=== PATIENT | female | born 1995 | race Hispanic/Latino ===

== ENCOUNTER 2020-03-24 16:46 | Emergency (ER) | payer OTHER, SELFPAY ==
--- NOTE | ~2020-03-24 | CT_ITS ---
EXAMINATION:CT chest w con DATE: 03/24/2020 20:04 INDICATION: Left breast mass, pain, and redness. TECHNIQUE: Computed tomography (CT) of the chest was performed with 75 mL Omnipaque 350 intravenous c ontrast. Automated exposure control and iterative reconstruction technique were employed. The dose-le ngth product (DLP) was 210.49 mGy-cm. COMPARISON: None. FINDINGS: There is no pneumonia or pleural effusion. The heart size is normal. No pericardial effusio n. There is left breast skin thickening. There is increased soft tissue attenuation in left breast wh en compared to the right. The bones are unremarkable. IMPRESSION: 1. Left breast skin thickening and asymmetric soft tissue attenuation, likely mastitis. No well-defin ed abscess identified. Reviewed, dictated and finalized at location A. AGE BOSS IMPRESSION: 1. Left breast skin thickening and asymmetric soft tissue attenuation, likely m astitis. No well-defined abscess identified.
[2020-03-24 17:12] VITALS: BP 134/85; PULSE 90; RESP 18; TEMP 36.9; O2SAT 100
--- NOTE | 2020-03-24 18:13 | ED.GENADULT ---
HPI - General Adult General Chief complaint: Unspecified Stated complaint: lump in left breast Time Seen by Provider: 03/24/20 18:13 Source: patient and family Mode of arrival: ambulatory Limitations: no limitations History of Present Illness HPI narrative: Patient is a 24-year-old female who presents for evaluation of left breast pain. Patient reports a 2-day history of redness, pain in the left breast. She feels a large lump beneath the breast. Pain is dull, aching in nature. No discharge from the nipple. No bruising. No swollen lymph nodes that she has noticed in the armpit. She denies fever or chills. Patient has no history of skin infection. She is not breast-feeding. Patient denies any history of cancer. No weight loss or history of cancer. Related Data Allergies Allergy/AdvReac Type Severity Reaction Status Date / Time No Known Allergies Allergy Verified 03/24/20 18:51 Review of Systems Review of Systems: Narrative: CONSTITUTIONAL: Denies fever, chills, or sweats. CARDIOVASCULAR: Denies chest pain, palpitations, or edema. RESPIRATORY: Denies cough or dyspnea. GASTROINTESTINAL: Denies abdominal pain, nausea, vomiting, or diarrhea. GENITOURINARY: Denies dysuria or hematuria. SKIN: Denies rash or itching. MUSCULOSKELETAL: Denies back pain, joint pain, or myalgia. NEUROLOGIC: Denies headache, numbness, or weakness. [facility] Past Medical History Medical History (Updated 03/24/20 @ 20:36 by Katherine Stevens MD) No pertinent past medical history Surgical History Surgical History (Updated 03/24/20 @ 18:49 by Katherine Stevens MD) No pertinent past surgical history Social History Social History (Updated 03/24/20 @ 18:49 by Katherine Stevens MD) Smoking status: Never smoker Alcohol intake: never Substance use: never Living arrangements: with family Gender identity (if verbalized by the patient): Female Exam Narrative: Exam Narrative: GENERAL: Awake, alert, conversant HEAD: Normocephalic, atraumatic. EYES: PERRLA and EOMI. ENT: Nares clear, no rhinorrhea or epistaxis. Mucous membranes moist. NECK: Supple. CHEST: No respiratory distress, breathing even and non labored, right breast is unremarkable, left breast notable for inferior erythema, edema, with induration inferior to the areola, no discharge from the nipple, no discoloration or asymmetry, + tender to palpation, + warmth present HEART: Regular rate, sinus rhythm ABDOMEN:Non distended, non tender EXTREMITIES: Normal range of motion. No edema. SKIN: Warm, dry, no rash. NEURO:No focal deficits. Alert and oriented x3 Course Vital Signs Vital signs: Vital Signs Temperature 36.9 C 03/24/20 17:12 Pulse Rate 90 03/24/20 17:12 Respiratory Rate 18 03/24/20 17:12 Blood Pressure 134/85 03/24/20 17:12 Pulse Oximetry 100 03/24/20 17:12 Temperature 36.9 C 03/24/20 17:12 Pulse Rate 90 03/24/20 17:12 Respiratory Rate 18 03/24/20 17:12 Blood Pressure 134/85 03/24/20 17:12 Pulse Oximetry 100 03/24/20 17:12 Medical Decision Making MDM Narrative Medical decision making narrative: Patient presented for evaluation of left breast tenderness, redness. At the time of assessment, ABCs are intact and vital signs are stable. Physical exam is notable for induration, mild erythema and warmth inferior to the areola, no axillary lymphadenopathy, no discharge from the nipple. No overlying skin changes otherwise. Given appearance, was concerned for possible mastitis versus abscess versus mass. Pt with mild leukocytosis. CT scan with evidence of mastitis, no abscess or mass otherwise. Patient is tolerating oral intake, will be given prescription for dicloxacillin, has PCP follow-up for this week. She was advised to return should she have no improvement after starting the antibiotic within 72 hours, fever, or inability to tolerate medication. Differential Diagnosis Differential Diagnosis: Mastitis, abscess, mass Vital Sig
[2020-03-24] MEDS: ACETAMINOPHEN 500 MG TABLET 1000 MG PO (19:01)
[2020-03-24 19:02] LABS: Basophils Percent Auto 0.3 % (0.2-1.2); Eosinophils Absolute Auto 0.1 K/mm3 (0-0.3); Eosinophils Percent Auto 0.9 % (0-4.4); Hematocrit 38.5 % (37.0-47.0); Hemoglobin 12.6 g/dL (12.0-15.0); Immature Granulocyte Absolute 0.04 K/mm3 (0.00-0.031); Immature Granulocyte Percent A 0.4 % (0-0.5); Lymphocytes Absolute Auto 2.66 K/mm3 (0.9-3.2); Lymphocytes Percent Auto 23.7 % (18.3-44.2); Mean Corpuscular HGB Conc 32.7 g/dl (32-36); Mean Corpuscular Hemoglobin 27.9 pg (26-34); Mean Corpuscular Volume 85.4 fl (80-100); Mean Platelet Volume 9.8 fl (7.4-10.4); Monocytes Absolute Auto 0.8 K/mm3 (0.1-0.6); Monocytes Percent Auto 7.5 % (2.6-8.5); Neutrophils Absolute Auto 7.6 K/mm3 (1.3-6.7); Neutrophils Percent Auto 67.2 % (45.5-73.1); Platelet Count Result 300 k/mm3 (150-375); Red Blood Count 4.51 M/mm3 (4.2-5.4); Red Cell Distribution Width 13.8 % (11.5-14.5); White Blood Count 11.2 K/mm3 (4.5-10.0)
[2020-03-24] MEDS: LACTATED RINGERS 1,000 ML 999 ML IV CONT (19:02)
[2020-03-24] MEDS: ONDANSETRON INJ 4 MG/2 ML VIAL IV PUSH (19:02)
[2020-03-24 19:14] LABS: Potassium 3.5 mmol/L (3.4-5.0)
[2020-03-24 19:16] LABS: Anion Gap 7 mmol/L (8-16); Blood Urea Nitrogen 12 mg/dL (7-17); Calcium 9.4 mg/dL (8.4-10.2); Carbon Dioxide 30 mmol/L (22-30); Chloride 101 mmol/L (98-107); Estimated CRCL calculation 112 ml/min; Estimated Glomerular Filt Rate > 60; Glucose 120 mg/dL (65-105); Sodium 138 mmol/L (137-145)
== END 2020-03-24 20:59 | disposition home or self-care (01) ==
PROVIDERS: Emergency Provider Emergency Medicine
DX: N61.0 Mastitis without abscess (principal)
CPT/HCPCS: 36415; 71260; 80048; 81025; 85025; 96361; 96374; 99284; A9270; J2405; J7120; Q9967

== ENCOUNTER 2022-01-02 10:05 | Emergency (ER) | payer OTHER, SELFPAY ==
--- NOTE | ~2022-01-02 | US_ITS ---
EXAMINATION: US OB limited DATE: 01/02/2022 11:54 INDICATION: Absent heart tones during second trimester TECHNIQUE: Real-time ultrasound of the pelvis was performed. The interpreting radiologist was not pre sent for the study. COMPARISON: None. FINDINGS: There is a single living fetus in breech presentation. The placenta is anterior. card iac activity and movement are noted. heart rate is 148 beats per minute (bpm). The amniot ic fluid index is subjectively normal. IMPRESSION: 1. Single living fetus in breech presentation. Reviewed, dictated and finalized at location B.
--- NOTE | 2022-01-02 10:14 | ED.RECABL ---
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 She completed treatment, but then had unprotected intercourse with her partner who was positive and was not treated. Patient is asymptomatic, denies any vaginal discharge, fevers, chills, abdominal pain, vaginal bleeding, sudden gush of fluids. She is still feeling baby move. <Cassandra Goodrich PA-C - Last Filed: 01/02/22 18:39> Related Data Allergies/Adverse Reactions: Allergies Allergy/AdvReac Type Severity Reaction Status Date / Time No Known Allergies Allergy Verified 03/24/20 18:51 <Cassandra Goodrich PA-C - Last Filed: 01/02/22 18:39> Review of Systems Review of Systems: Gen.: Denies fevers or chills Eyes: Denies eye pain or visual change ENT: Denies congestion Respiratory: Denies shortness of breath or cough CV: Denies chest pain or palpitations GI: Denies abdominal pain nausea, emesis or diarrhea denies burning, urgency, frequency or hematuria Musculoskeletal: Denies back pain or muscle pain Neuro: Denies numbness, tingling, weakness or focal weakness Skin: Denies rash Except as documented, all other systems reviewed and negative <Cassandra Goodrich PA-C - Last Filed: 01/02/22 18:39> [facility] Past Medical History Medical History: Medical History No pertinent past medical history <Cassandra Goodrich PA-C - Last Filed: 01/02/22 18:39> Surgical History Surgical History: Surgical History No pertinent past surgical history <Cassandra Goodrich PA-C - Last Filed: 01/02/22 18:39> Social History Social History: Social History (Updated 03/24/20 @ 18:49 by Katherine Stevens MD) Smoking status: Never smoker Alcohol intake: never Substance use: never Gender identity (if verbalized by the patient): Female <Cassandra Goodrich PA-C - Last Filed: 01/02/22 18:39> Exam Narrative: APPEARANCE: Well appearing, no pain in distress, well-nourished. Head: Normocephalic and atraumatic. EYES: PERRLA/EOMI, conjunctivae clear NOSE: No nasal drainage EARS: External ear normal in appearance THROAT: Oropharynx is clear. Mucous membranes are moist. NECK: Supple. No adenopathy, no masses. RESPIRATORY: Airway patent, respirations nonlabored. Clear to auscultation bilaterally, no rales, rhonchi, wheezing. CARDIOVASCULAR: Regular rate and rhythm without murmurs, rubs, or gallops. ABDOMINAL: Gravid uterus. Normoactive bowel sounds. Soft, nontender, nondistended. No rebound tenderness or guarding. : scant amount of white discharge noted in vaginal vault, no CMT MUSCULOSKELETAL: Extremities are warm and well-perfused. Moves all extremities well. No edema. NEURO: Normal speech. No focal neurologic deficits. SKIN: Skin is warm and dry. No rashes. PSYCHIATRIC: Normal affect/mood. <Cassandra Goodrich PA-C - Last Filed: 01/02/22 18:39> Course WEB EDITOR/PA Physician Supervision For this patient encounter, I reviewed the WEB EDITOR or PA documentation, treatment plan, and medical decision making <Gene Harrison MD - Last Filed: 01/03/22 06:57> Vital Signs Vital signs: Vital Signs Temperature 97.9 F 01/02/22 10:30 Pulse Rate 85 01/02/22 10:30 Respiratory Rate 16 01/02/22 10:30 Blood Pressure 114/71 01/02/22 10:30 Pulse Oximetry 100 01/02/22 10:30 Temperature 97.9 F 09/0
[2022-01-02 10:30] VITALS: BP 114/71; PULSE 85; RESP 16; TEMP 36.6; O2SAT 100
[2022-01-02] MEDS: cefTRIAXone 1 GM VIAL 0.5 GM IM (11:52)
[2022-01-02] MEDS: WATER, STERILE FOR INJECTION 10 ML VIAL XX (11:53)
[2022-01-02] MEDS: AZITHROMYCIN 250 MG TABLET 1000 MG PO (11:58)
[2022-01-02 12:16] VITALS: BP 129/76; PULSE 84; RESP 16; O2SAT 99
== END 2022-01-02 12:27 | disposition home or self-care (01) ==
PROVIDERS: Physician Assistant; Emergency Provider Emergency Medicine
DX: O99.891 Other specified diseases and conditions complicating pregnancy (principal); Z20.2 Contact with and (suspected) exposure to infections with a predominantly sexual mode of transmission; Z3A.00 Weeks of gestation of pregnancy not specified
CPT/HCPCS: 76815; 87070; 87491; 87591; 87808; 96372; 99284; A9270; J0696

== ENCOUNTER 2023-02-11 19:29 | Emergency (ER) | payer OTHER, SELFPAY ==
--- NOTE | ~2023-02-11 | XR_ITS ---
EXAMINATION: XR hand LT min 3V DATE: 02/11/2023 20:05 INDICATION: Left hand injury and pain and swelling. TECHNIQUE: 3 views of left hand were obtained. COMPARISON: None. FINDINGS: Bone alignment is normal. There is a nondisplaced spiral fracture of diaphysis of fifth met acarpal. Joint spaces are normal. IMPRESSION: 1. Nondisplaced spiral fracture of diaphysis of fifth metacarpal. Reviewed, dictated and finalized at location E.
[2023-02-11 19:50] VITALS: BP 131/80; PULSE 71; RESP 18; TEMP 36.6; O2SAT 100
--- NOTE | 2023-02-11 20:23 | ED.GENADULT ---
[facility] - General Adult General Chief complaint: Extremity Injury, Upper Stated complaint: left hand injury Time Seen by Provider: 02/11/23 19:54 Source: patient Mode of arrival: ambulatory Limitations: no limitations History of Present Illness HPI narrative: This is a 27-year-old female who presents to the ED with chief complaint of left hand injury that occurred just prior to. Patient was walking to the room when she accidentally tripped and fell landing directly onto her left hand. She reports that she fell directly onto a toy on the ground. Denies any further site of pain or injury. Denies numbness or weakness. Related Data Allergies Allergy/AdvReac Type Severity Reaction Status Date / Time No Known Allergies Allergy Verified 02/11/23 19:54 Review of Systems Review of Systems: All systems as dictated in [facility] Past Medical History Medical History No pertinent past medical history Surgical History Surgical History No pertinent past surgical history Social History Social History (Updated 03/24/20 @ 18:49 by Katherine Stevens MD) Smoking status: Never smoker Alcohol intake: never Substance use: never Living arrangements: with family Gender identity (if verbalized by the patient): Female Exam Narrative: GENERAL: Well-appearing, well-nourished, and in no acute distress. HEAD: Normocephalic, atraumatic. EYES: PERRLA and EOMI. ENT: Nares clear, no rhinorrhea or epistaxis. Mucous membranes moist. Oropharynx without tonsillar hypertrophy exudate or other lesions. NECK: Supple. No adenopathy or masses. CHEST: No respiratory distress. Clear to auscultation. No wheezes rales or rhonchi HEART: Regular rate and rhythm. No murmur heard. Normal peripheral pulses. ABDOMEN: Soft, nontender, nondistended, normal active bowel sounds. MSK: Left hand with tenderness to the fifth metacarpal. No crepitus. No deformity. No bruising. Neurovascularly intact distally. No anatomical snuffbox tenderness in the left wrist. SKIN: Warm, dry, no rash. NEURO: Alert and oriented x3. No focal deficits. PSYCH: Normal mood and affect. Course Vital Signs Vital signs: Vital Signs Temperature 97.9 F 02/11/23 19:50 Pulse Rate 71 02/11/23 19:50 Respiratory Rate 18 02/11/23 19:50 Blood Pressure 131/80 02/11/23 19:50 Pulse Oximetry 100 02/11/23 19:50 Oxygen Delivery Room Air 02/11/23 19:50 Temperature 97.9 F 02/11/23 19:50 Pulse Rate 74 02/11/23 21:18 Respiratory Rate 14 02/11/23 21:18 Blood Pressure 123/89 02/11/23 21:18 Pulse Oximetry 99 02/11/23 21:18 Oxygen Delivery Room Air 02/11/23 19:50 Procedures Orthopedic Splinting/Casting Injury #1: Splinting/Casting Date: 02/11/23 Splinting/Casting Time: 21:02 Side: left Upper Extremity Injury Location: hand Upper Extremity Immobilizer: ulnar gutter Splint: prefabricated OCL: ulnar gutter Pre-Procedure Neuro Vascular Exam: normal Post-Procedure Neuro Vascular Exam: normal Medical Decision Making MDM Narrative Medical decision making narrative: This is a 27-year-old female who presents to the ED with chief complaint of a left hand injury just prior to arrival. Vitals are normal. Exam shows tenderness on the ulnar side of the left hand. X-ray shows 1. Nondisplaced spiral fracture of diaphysis of fifth metacarpal.. She will be placed in ulnar gutter splint and given Ortho referral. Pt will be discharged in stable condition. Return precautions given and supportive measures discussed. Pt is understanding and agreeable with plan for discharge and follow-up with PCP/Ortho Vital Signs Vital Signs: Vital Signs Temperature 97.9 F 02/11/23 19:50 Pulse Rate 71 02/11/23 19:50 Respiratory Rate 18 02/11/23 19:50 Blood Pressure 13
[2023-02-11 21:18] VITALS: BP 123/89; PULSE 74; RESP 14; O2SAT 99
== END 2023-02-11 21:28 | disposition home or self-care (01) ==
PROVIDERS: Emergency Provider Physician Assistant
DX: S62.357A Nondisplaced fracture of shaft of fifth metacarpal bone, left hand, initial encounter for closed fracture (principal); W01.0XXA Fall on same level from slipping, tripping and stumbling without subsequent striking against object, initial encounter
CPT/HCPCS: 29125; 73130; 99284

== ENCOUNTER 2023-06-07 19:55 | Emergency (ER) | payer OTHER, SELFPAY ==
[2023-06-07 19:55] VITALS: BP 114/71; PULSE 82; RESP 17; TEMP 36.7; O2SAT 100
--- NOTE | 2023-06-07 21:30 | ED.HA ---
HPI - Headache General Chief Complaint: Headache Stated Complaint: PEREZ x2 weeks/6mo Time Seen by Provider: 06/07/23 21:30 Focused HPI: 28-year-old female who is , currently 6 months reports for evaluation for right-sided headache x2 weeks. Patient reports associated intermittent blurred vision in the right eye, photophobia and phonophobia. She denies history of headaches. States this has been uncomplicated. Denies history of eclampsia or preeclampsia, loss of consciousness, head trauma, chest pain or shortness of breath, abdominal pain, vaginal bleeding or leakage of fluid, seizures. reports taking Tylenol without relief. Denies history of headaches. Her OBGYN is Dr. Kelly. GENERAL: Well-appearing, well-nourished, and in no acute distress. HEAD: Normocephalic, atraumatic. CHEST: Clear to auscultation. ?No respiratory distress. HEART: Regular rate and rhythm.? NEURO: ?Alert and oriented x3. cranial nerves 2-12 intact. Strength 5/5 in BUE and BLE. Sensation intact throughout. Normal [id number]. No pronator drift. Patient screened in triage and initial orders placed.? ?Additional care and disposition to be based upon?diagnostic testing and treatment. History of Present Illness HPI Narrative: 28-year-old female who is , currently 6 months reports for evaluation for right-sided headache x2 weeks. Patient reports associated intermittent blurred vision in the right eye, photophobia and phonophobia. She denies history of headaches. States this has been uncomplicated. Denies history of eclampsia or preeclampsia, loss of consciousness, head trauma, chest pain or shortness of breath, abdominal pain, vaginal bleeding or leakage of fluid, seizures. reports taking Tylenol without relief. Denies history of headaches. Her OBGYN is Dr. Kelly. states her right eye is currently not blurry. Related Data Allergies Allergy/AdvReac Type Severity Reaction Status Date / Time prochlorperazine AdvReac Anxiety Verified 06/07/23 23:12 [From Compazine] Review of Systems Review of Systems: CONSTITUTIONAL: Denies fever, chills, or sweats. EYES: Denies visual changes, redness, or discharge. ENT: See HPI CARDIOVASCULAR: Denies chest pain, palpitations, or edema. RESPIRATORY: Denies cough or dyspnea. GASTROINTESTINAL: Denies abdominal pain, nausea, vomiting, or diarrhea. GENITOURINARY: Denies dysuria or hematuria. SKIN: Denies rash or itching. MUSCULOSKELETAL: Denies back pain, joint pain, or myalgia. NEUROLOGIC: See HPI PSYCHIATRIC: Denies anxiety or depression. [facility] Past Medical History Medical History No pertinent past medical history Surgical History Surgical History No pertinent past surgical history Social History Social History Smoking status: Never smoker Alcohol intake: never Substance use: never Living arrangements: with family Gender identity (if verbalized by the patient): Female Exam Narrative: GENERAL: Well-appearing, well-nourished, and in no acute distress. HEAD: Normocephalic, atraumatic. EYES: PERRLA and EOMI. intra-ocular pressures 10 mg of mercury bilaterally. Visual acuity is 20/20 bilaterally. ENT: Nares clear, no rhinorrhea or epistaxis. Mucous membranes moist. NECK: Supple. CHEST: Clear to auscultation. No respiratory distress. HEART: Regular rate and rhythm. No murmur heard. Normal peripheral pulses. ABDOMEN: Soft, nontender, nondistended, normal active bowel sounds. EXTREMITIES: Normal range of motion. No edema. SKIN: Warm, dry, no rash. NEURO: No focal deficits. Alert and oriented x3. Cranial nerves 2-12 intact. Strength 5/5 in BUE and BLE. Sensation intact throughout. Normal [id number]. No pronator drift. Course Vital Signs Vital sign
[2023-06-07] MEDS: ACETAMINOPHEN 500 MG TABLET 1000 MG PO (21:40)
[2023-06-07 22:16] VITALS: BP 112/77; PULSE 82; RESP 16; O2SAT 98
[2023-06-07 22:19] LABS: Basophils Percent Auto 0.3 % (0.2-1.2); Eosinophils Absolute Auto 0.1 K/mm3 (0-0.3); Eosinophils Percent Auto 0.8 % (0-4.4); Hematocrit 31.3 % (37.0-47.0); Hemoglobin 9.3 g/dL (12.0-15.0); Immature Granulocyte Absolute 0.05 K/mm3 (0.00-0.031); Immature Granulocyte Percent A 0.5 % (0-0.5); Lymphocytes Absolute Auto 2.85 K/mm3 (0.9-3.2); Lymphocytes Percent Auto 26.6 % (18.3-44.2); Mean Corpuscular HGB Conc 29.7 g/dl (32-36); Mean Corpuscular Hemoglobin 23.3 pg (26-34); Mean Corpuscular Volume 78.4 fl (80-100); Mean Platelet Volume 9.9 fl (7.4-10.4); Monocytes Percent Auto 9.5 % (2.6-8.5); Neutrophils Absolute Auto 6.7 K/mm3 (1.3-6.7); Neutrophils Percent Auto 62.3 % (45.5-73.1); Platelet Count Result 311 k/mm3 (150-375); Red Blood Count 3.99 M/mm3 (4.2-5.4); Red Cell Distribution Width 16.5 % (11.5-14.5); White Blood Count 10.7 K/mm3 (4.5-10.0)
[2023-06-07 22:27] LABS: Hypochromasia 1+ (NORMAL); Ovalocytes 1+ (NORMAL); Platelet Estimate Adequate (Adequate); Schistocytes None Seen (NORMAL)
[2023-06-07 22:29] LABS: Alanine Aminotransferase 8 U/L (6-35); Albumin Level 3.6 g/dL (3.5-5.1); Alkaline Phosphatase 88 U/L (38-126); Anion Gap 5 mmol/L (8-16); Aspartate Amino Transferase 19 U/L (14-36); Bilirubin,Total 0.3 mg/dL (0.2-1.3); Blood Urea Nitrogen 10 mg/dL (7-17); Carbon Dioxide 24 mmol/L (22-30); Chloride 106 mmol/L (98-107); Estimated CRCL calculation 138 ml/min; Estimated Glomerular Filt Rate > 60; Glucose 90 mg/dL (65-110); Potassium 3.7 mmol/L (3.4-5.0); Sodium 135 mmol/L (137-145)
[2023-06-07] MEDS: PROCHLORPERAZINE EDISYLATE 10 MG/2 ML VIAL IV PUSH (22:29)
[2023-06-07] MEDS: diphenhydrAMINE HCl INJ 50 MG/ML VIAL 25 MG IV PUSH (22:31)
[2023-06-07 22:56] LABS: Influenza A QL RT-PCR Negative (Negative); Influenza B QL RT-PCR Negative (Negative); RSV RNA, RT-PCR Negative (Negative); SARS-CoV-2 RNA PCR Negative (Negative)
[2023-06-07 23:13] LABS: Appearance Urine Clear (Clear); Bilirubin Urine Negative (Negative); Blood Urine Negative (Negative); Color Urine Yellow (Yellow); Glucose Urine UA Negative (Negative); Ketones Urine Negative (Negative); Leukocyte Esterase Ur Negative LEU/UL (Negative); Nitrate Urine Negative (Negative); Protein Urine Negative (Negative); Specific Grav Ur 1.023 (1.001-1.035); pH Urine 7.5 (5.0-9.0)
[2023-06-07 23:16] LABS: Add Urine Microscopic? NO
== END 2023-06-07 23:59 | disposition home or self-care (01) ==
PROVIDERS: Emergency Provider Physician Assistant; PCP Obstetrics & Gynecology
DX: O26.891 Other specified pregnancy related conditions, first trimester (principal); R51.9 Headache, unspecified; Z3A.01 Less than 8 weeks gestation of pregnancy; Z20.822 Contact with and (suspected) exposure to COVID-19
CPT/HCPCS: 36415; 80053; 81003; 83735; 85025; 87637; 96374; 96375; 99284; A9270; J0780; J1200

== ENCOUNTER 2023-09-19 23:25 | Inpatient (IN) | payer OTHER, SELFPAY ==
--- NOTE | ~2023-09-19 | US_ITS ---
EXAMINATION: US OB limited w BPP DATE: 09/20/2023 09:08 INDICATION: Variable decelerations. As estimated gestational age of 40 weeks and 2 days. TECHNIQUE: R eal-time pelvic ultrasound was performed. COMPARISON: None. FINDINGS: There is a single living fetus in vertex presentation. The placenta is on the left. heart rate is 149 beats per minute (bpm). The amniotic fluid index is 10.9 cm, which is normal. Biophysical profile performed by the technologist: breathing (30 sec sustained breathing in 30 minutes): 2 out of 2 movement (3 gross body movements in 30 minutes): 2 out of 2 tone (one episode of ubitogo-[id number]-[id number] limb movement): 2 out of 2 Amniotic fluid pocket (2 cm): 2 out of 2 Total score: 8 out of 8 IMPRESSION: 1. Single living fetus in vertex presentation. 2. Biophysical profile 8 out of 8. Reviewed, dictated and finalized at location A.
[2023-09-19 23:48] VITALS: TEMP 36.6
[2023-09-19 23:57] VITALS: PULSE 90; O2SAT 97
[2023-09-20] VITALS (234 sets, daily range): BP systolic 75–135; BP diastolic 42–78; PULSE 41–126; TEMP 36.3–36.9; O2SAT 86–100; BMI 32.0
[2023-09-20 00:24] LABS: Appearance Urine Turbid (Clear); Bacteria Urine 3+ /hpf; Bilirubin Urine Negative (Negative); Blood Urine Non-Hemolyzed Trace (Negative); Color Urine Dark Yellow (Yellow); Glucose Urine UA Negative (Negative); Ketones Urine 1+ mg/dL (Negative); Leukocyte Esterase Ur 2+ LEU/UL (Negative); Need Manual Microscopic Reviewed; Nitrate Urine Negative (Negative); Protein Urine 2+ mg/dL (Negative); Specific Grav Ur 1.028 (1.001-1.035); Squamous Epithelial Cell Urine Few /hpf (Few); WBC Urine >100 /hpf (0-3)
[2023-09-20 00:26] LABS: Add Urine Microscopic? YES
--- NOTE | 2023-09-20 00:49 | OBADM ---
This patient, Nancy Byrne, admitted to the OB room Labor/Delivery/Recovery 104 for observation. Patient/family oriented to hospital policies and general routines including ID bracelet, bed and alarms, visiting hours, pain management, procedures, bathroom and other care routines, personal items, smoking policy, room service/diet, and visiting hours. Patient/Family are encouraged to report perceived risks to care and to ask questions if they do not understand what they are told or what they should do.
[2023-09-20] MEDS: SODIUM CHLORIDE 0.9% IV 1,000 ML 999 ML IV CONT (01:15)
--- NOTE | 2023-09-20 01:47 | PC.NURSE ---
0043- RN notified Robin QUIÑONEZ of patient arrival and patient complaints. RN also notified MD of u/a results, uterine activity, cervical exam, and FHT. gave orders to do a fluid bolus and 1g Rocephin IV. MD gave orders d/c orders after medications were finished and have pt follow up in the office.
--- NOTE | 2023-09-20 05:22 | LDADM ---
This patient, Nancy Byrne, was admitted to Labor/Delivery/Recovery 104 on 09/20/23 at 05:22. Plans for labor, pain management and were discussed with patient. Patient/family oriented to hospital policies and general routines including ID bracelet, bed and alarms, visiting hours, pain management, procedures, bathroom and other care routines, personal items, smoking policy, room service/diet and guest tray routines, infant security routines, and visiting hours. Patient/Family are encouraged to report perceived risks to care and to ask questions if they do not understand what they are told or what they should do. See OBIX for further documentation.
[2023-09-20 06:10] LABS: Basophils Percent Auto 0.4 % (0.2-1.2); Eosinophils Absolute Auto 0.1 K/mm3 (0-0.3); Eosinophils Percent Auto 0.5 % (0-4.4); Hematocrit 32.2 % (37.0-47.0); Hemoglobin 10.3 g/dL (12.0-15.0); Immature Granulocyte Absolute 0.05 K/mm3 (0.00-0.031); Immature Granulocyte Percent A 0.5 % (0-0.5); Lymphocytes Absolute Auto 2.43 K/mm3 (0.9-3.2); Lymphocytes Percent Auto 22.5 % (18.3-44.2); Mean Corpuscular Hemoglobin 26.3 pg (26-34); Mean Corpuscular Volume 82.4 fl (80-100); Mean Platelet Volume 10.6 fl (7.4-10.4); Monocytes Absolute Auto 0.9 K/mm3 (0.1-0.6); Monocytes Percent Auto 8.4 % (2.6-8.5); Neutrophils Absolute Auto 7.3 K/mm3 (1.3-6.7); Neutrophils Percent Auto 67.7 % (45.5-73.1); Platelet Count Result 189 k/mm3 (150-375); Red Blood Count 3.91 M/mm3 (4.2-5.4); Red Cell Distribution Width 20.8 % (11.5-14.5); White Blood Count 10.8 K/mm3 (4.5-10.0)
[2023-09-20 07:02] LABS: HIV 1/2 Ab P24 Ag Result Negative (Negative)
--- NOTE | 2023-09-20 07:19 | WPDANESEPP ---
Anes - Eval Pre Procedure Procedure: labor epidural Date/Time: 09/20/23 07:19 Surgeon: inga Preop Diagnosis: pain during labor Pre Op Diagnosis: cx Patient Data Age: 28 Gender: F Height: 1.6 m Weight: 82 kg Last Vital Signs Temp 36.3 C L 09/20/23 04:35 Pulse 80 09/20/23 07:01 BP 89/46 L 09/20/23 07:01 Pulse Ox 98 09/20/23 07:16 O2 Del Method Room Air 09/20/23 05:54 Allergies Allergy/AdvReac Type Severity Reaction Status Date / Time prochlorperazine AdvReac Anxiety Verified 07/14/23 10:12 [From Compazine] Home Medications Medication Instructions Recorded Confirmed Type No Home Medications 07/04/23 09/20/23 History Laboratory Tests 09/20/23 09/20/23 00:04 06:03 WBC 10.8 H K/mm3 (4.5-10.0) RBC 3.91 L M/mm3 (4.2-5.4) Hgb 10.3 L g/dL (12.0-15.0) Hct 32.2 L % (37.0-47.0) MCV 82.4 fl (80-100) MCH 26.3 pg (26-34) MCHC 32.0 g/dl (32-36) RDW 20.8 H % (11.5-14.5) Plt Count 189 k/mm3 (150-375) MPV 10.6 H fl (7.4-10.4) Immature Gran % (Auto) 0.5 % (0-0.5) Neut % (Auto) 67.7 % (45.5-73.1) Lymph % (Auto) 22.5 % (18.3-44.2) [place] % (Auto) 8.4 % (2.6-8.5) Eos % (Auto) 0.5 % (0-4.4) Baso % (Auto) 0.4 % (0.2-1.2) Lymph # (Auto) 2.43 K/mm3 (0.9-3.2) [place] # (Auto) 0.9 H K/mm3 (0.1-0.6) Eos # (Auto) 0.1 K/mm3 (0-0.3) Baso # (Auto) 0.0 K/mm3 (0.0-0.1) Abs Immat Gran (auto) 0.05 H K/mm3 (0.00-0.031) Absolute Neuts (auto) 7.3 H K/mm3 (1.3-6.7) Absolute Nucleated RBC 0.000 K/mm3 (0.0-0.012) Nucleated RBC % 0.0 % (0.0-0.2) Urine Color Dark yellow (Yellow) Urine Appearance Turbid H (Clear) Urine pH 6.0 (5.0-9.0) Ur Specific [place] 1.028 (1.001-1.035) Urine Protein 2+ H mg/dL (Negative) Urine Glucose (UA) Negative mg/dL (Negative) Urine Ketones 1+ H mg/dL (Negative) Ur Blood (Man) Non-hemolyzed trace H (Negative) Urine Nitrate Negative (Negative) Urine Bilirubin Negative (Negative) Urine Urobilinogen 1.0 mg/dL (<2.0) Add Ur Microanalysis Reviewed Leukocyte Esterase Rfl 2+ H JOHAN/UL (Negative) Urine RBC 3-5 H /hpf (0-2) Urine WBC >100 H /hpf (0-3) Ur Squamous Epith Cells Few /hpf (Few) Urine Bacteria 3+ H /hpf Urine Casts 3-5 RPR Pending HIV 1&2 Ab/P24 Ag 4thGn Negative (Negative) Patient hx anesthesia problems: none Family hx anesthesia problems: none Results Review: All pre-operative results and documents have been reviewed as part of the pre-operative evaluation. [facility] Past Medical History Medical History (Updated 09/20/23 @ 07:20 by Moriah Chauhan CRNA) IUP (intrauterine ), incidental No pertinent past medical history Surgical History Surgical History No pertinent past surgical history Social History Social History Smoking status: Never smoker Second hand tobacco smoke exposure: Yes Alcohol intake: never Substance use: never Do You Feel Safe in your Home?: Yes Lack of Transportation: No Lack of Food: Sometimes True Current Housing: I Have Housing Concerned About Future Housing: No Difficulty Paying Gas/Electric Bills: YES Difficulty Paying for Meds: No Currently Unemployed: No Education: High School Diploma/GED Difficulty w/ Childcare or Family Care: No Living arrangements: with family Gender identity (if verbalized by the patient): Female Spiritual care concerns: No Exam Day of Procedure 09/20/23 07:19
--- NOTE | 2023-09-20 08:34 | PM.IMHP ---
H&P: HPI History of Present Illness Date/Time: 09/20/23 08:34 Chief Complaint: Contractions Narrative: 28-year-old multi at 40 weeks gestation who presents for painful contractions. Shortly after arrival her contractions Became less frequent. She continued to have contractions infrequently. They were were less painful. She was observed to have some cervical change. she was observed overnight. There was an occasional late deceleration but otherwise her heart rate tracing was reactive throughout the night. We suggested that we go ahead and get her delivered. That we undertake a augmentation or induction of labor. Patient declined that. She understands that there is risk to going home. She understands that stillbirth may occur. patient will be discharged per her desires she knows there is risk associated with no delivery today. Review of Systems Review of Systems: All systems reviewed & are unremarkable except as noted in HPI and below Constitutional: Constitutional: Denies chills, Denies fatigue, Denies fever(s) and Denies weakness Eyes: Eyes: Denies blurry vision, Denies change in vision, Denies loss of peripheral vision, Denies loss of vision, Denies other visual disturbances and Denies eye pain ENT: Denies vertigo, Denies dizziness, Denies hearing loss, Denies mouth pain, Denies nasal obstruction, Denies neck mass and Denies neck pain Cardiovascular: Cardiovascular: Denies chest pain, Denies diaphoresis, Denies syncope, Denies leg edema and Denies dyspnea Respiratory: Respiratory: Denies chest congestion, Denies cough, Denies hemoptysis, Denies dyspnea and Denies wheezing Gastrointestinal: Gastrointestinal: Denies abdominal pain, Denies constipation, Denies diarrhea, Denies nausea and Denies vomiting Genitourinary: Genitourinary: Denies hematuria, Denies change in libido, Denies nocturia, Denies genital lesions, Denies flank pain and Denies urinary urgency Musculoskeletal: Musculoskeletal: Denies abnormal gait, Denies back pain, Denies myalgias, Denies arthralgias, Denies joint swelling, Denies muscle weakness and Denies neck pain Integumentary/Breasts: Skin/Breast: Denies swelling, Denies breast pain, Denies breast mass, Denies dry skin, Denies nipple discharge, Denies unusual bruising and Denies jaundice Neurologic: Denies Neuro-related abnormal movements, Denies Abnormal speech present, Denies abnormal gait, Denies behavioral changes, Denies confusion, Denies vertigo, Denies dizziness, Denies syncope, Denies loss of vision, Denies memory loss, Denies convulsions and Denies weakness Psychiatric: Psychiatric: Denies abnormal sleep pattern, Denies behavioral changes, Denies change in libido, Denies confusion, Denies depression, Denies anhedonia and Denies memory loss Endocrine: Endocrine: Reports no additional endocrine complaints, Denies change in libido and Denies fatigue Hematologic/Lymphatic: Hematologic/Lymphatic: Reports no additional hematologic/lymphatic complaints Allergic/Immunologic: Allergic/Immunologic: Reports no additional allergic/immunologic complaints and Denies wheezing PMFSH Past Medical History Medical History (Updated 09/20/23 @ 08:39 by Micheal Kelly MD) IUP (intrauterine ), incidental No pertinent past medical history Surgical History Surgical History No pertinent past surgical history Social History Social History Smoking status: Never smoker Second hand tobacco smoke exposure: Yes Alcohol intake: never Substance use: never Do You Feel Safe in your Home?: Yes Lack of Transportation: No Lack of Food: Sometimes True Current Housing: I Have Housing Concerned About Future Housing: No Difficulty Paying Gas/Electric Bills: YES Difficulty Paying for Meds: No Currently Unemployed: No Education: High School Diploma/GED Difficulty w/ Child
[2023-09-20 09:52] LABS: Rubella IgG Antibody 9.3 IU/ML
[2023-09-20 09:54] LABS: Hepatitis B Surface Antigen Negative (Negative)
--- NOTE | 2023-09-20 19:48 | P.PNOB_ITS ---
OB - PN: Subj Subjective Date/time seen: 09/20/23 19:48 Artificial rupture of membranes-clear, 4 cm, 50%, -2, no contractions, no vaginal bleeding reassuring heart tones. OB - PN: Obj Data Labs 09/20/23 06:03 Labs: Laboratory Results - last 24 hr 09/20/23 09/20/23 00:04 06:03 WBC 10.8 H RBC 3.91 L Hgb 10.3 L Hct 32.2 L MCV 82.4 MCH 26.3 MCHC 32.0 RDW 20.8 H Plt Count 189 MPV 10.6 H Immature Gran % (Auto) 0.5 Neut % (Auto) 67.7 Lymph % (Auto) 22.5 [place] % (Auto) 8.4 Eos % (Auto) 0.5 Baso % (Auto) 0.4 Lymph # (Auto) 2.43 [place] # (Auto) 0.9 H Eos # (Auto) 0.1 Baso # (Auto) 0.0 Abs Immat Gran (auto) 0.05 H Absolute Neuts (auto) 7.3 H Absolute Nucleated RBC 0.000 Nucleated RBC % 0.0 Urine Color Dark yellow Urine Appearance Turbid H Urine pH 6.0 Ur Specific [place] 1.028 Urine Protein 2+ H Urine Glucose (UA) Negative Urine Ketones 1+ H Ur Blood (Man) Non-hemolyzed trace H Urine Nitrate Negative Urine Bilirubin Negative Urine Urobilinogen 1.0 Add Ur Microanalysis Reviewed Leukocyte Esterase Rfl 2+ H Urine RBC 3-5 H Urine WBC >100 H Ur Squamous Epith Cells Few Urine Bacteria 3+ H Urine Casts 3-5 Hep Bs Antigen Negative HIV 1&2 Ab/P24 Ag 4thGn Negative Rubella IgG Antibody 9.3 L Blood Type O Positive Antibody Screen Negative Imaging Radiologist's impression: Impressions Obstetrics US/Biophysical Profile 09/20/23 09:09 IMPRESSION: 1. Single living fetus in vertex presentation. 2. Biophysical profile 8 out of 8. OB - PN A/P Time Spent With Patient Time: Total time spent is greater than 50% in coordination of care (as documented) at patient's floor/unit and/or counseling patient:
[2023-09-21] VITALS (52 sets, daily range): BP systolic 97–114; BP diastolic 50–80; PULSE 73–124; RESP 16–18; TEMP 36.6–37; O2SAT 89–100
[2023-09-21] MEDS: OXYTOCIN 30 UNITS/NS 500 ML 30 UNITS/500 ML BAG 999 UNITS IV CONT (02:13)
--- NOTE | 2023-09-21 02:23 | PM.OBPRVD ---
OB - Vaginal Delivery Note Procedure Delivery date: 09/21/23 Delivery augmentation: Rupture of Membranes Delivery monitor: External FHT and External Uterine Route of delivery: Episiotomy description: None Laceration Description: Perineal - 1st Degree Delivery repair: vicryl Specimen: No Quantitative Blood Loss (ml): 200 Anesthesia type: None Complications: No immediate complications Baby Date of : 09/21/23 Time of : 02:11 Weeks of gestation at delivery: 40 score one minute: 8 score five minutes: 9
[2023-09-21] MEDS: OXYTOCIN 30 UNITS/NS 500 ML 30 UNITS/500 ML BAG 125 UNITS IV CONT (02:55)
[2023-09-21] MEDS: ACETAMINOPHEN 325 MG TABLET 650 MG PO ×2 (03:00→08:56)
[2023-09-21] MEDS: IBUPROFEN 600 MG TABLET PO ×3 (03:00→16:38)
[2023-09-21] MEDS: WITCH HAZEL 40 PADS 1 PAD TOPICAL (04:14)
[2023-09-21] MEDS: BENZOCAINE 20% AER SPR (*SP) 56 GM CAN 1 SPRAY TOPICAL (04:14)
--- NOTE | 2023-09-21 05:21 | OBPPTRN ---
09/21/2023 at 0434 Patient transferred in wheelchair to post room #291. Support person present. Oriented to unit, room, information board, rooming in, admission packet and security measures. Patient verbalizes understanding.
[2023-09-21] MEDS: DOCUSATE SODIUM 100 MG CAPSULE PO ×2 (08:56→16:38)
[2023-09-21] MEDS: MULTIVIT/MIN/PREN/FOL AC/IRON TABLET 1 TAB PO (08:56)
--- NOTE | 2023-09-21 08:56 | PC.NURSE ---
Medications manually entered, computers would not scan and kept having connection issues.
--- NOTE | 2023-09-21 13:30 | PCCCNOTE ---
Recvd consult due to difficulty paying bills and for food. Met with pt. and baby. Pt. was provided resources in regards to financial, paying utility bills, food, and . Pt. reports she, new baby, and her other two children (ages 1.5 and 7), will be living in [place] at [address] [place] [address]. Pt. reports her mother, father, and sister are all very supportive and live locally. Pt. reports 1.5 year old is with their father while pt. in hospital, and 7 year old is with pt's sister. Pt. reports has baby supplies and states already established with [facility]. Pt. looking into WIC. Pt. denies any DCFS involvement and denies any drug use during . RN Teresa aware of visit.
[2023-09-22 06:12] LABS: Hematocrit 30.3 % (37.0-47.0); Hemoglobin 9.3 g/dL (12.0-15.0)
--- NOTE | 2023-09-22 06:58 | PM.OBPNVD ---
OB - PN: Subj Subjective Date/time seen: 09/22/23 06:58 Interval history: pp day 1 doing well would like to d/c home OB - PN: Obj Data Labs 09/22/23 05:15 Labs: Laboratory Results - last 24 hr 09/22/23 05:15 Hgb 9.3 L Hct 30.3 L OB - PN A/P Plan day: 1 Plan: routine care and discharge home Time Spent With Patient Time: Total time spent is greater than 50% in coordination of care (as documented) at patient's floor/unit and/or counseling patient: Review of Systems Review of Systems: All systems reviewed & are unremarkable except as noted in HPI and below Exam Const: General: cooperative and healthy appearing Chest: Chest palpation & inspection: normal inspection of the chest Resp: Effort & Inspection: normal respiratory effort Cardio: Rate: regular rate Rhythm: regular rhythm Back/Spine/Pelvis: Back: no CVA tenderness Skin: General skin exam: normal color
--- NOTE | 2023-09-22 07:00 | PM.OBDSVD ---
DS: Admitting Diagnosis Discharge Date 09/22/23 Admitting Diagnosis Labor DS: Discharge Diagnosis Discharge Diagnosis (1) Vaginal delivery: Code(s): O80 - Encounter for full-term uncomplicated delivery Status: Acute OB - DS: Summary OB Procedures : None OB Procedures Intrapartum: Spontaneous Vag Delivery OB Procedures: : None Peripartum Data Laceration Description: Perineal - 1st Degree Episiotomy description: None Time Spent with Patient Time attestation: Total time spent providing and/or coordinating discharge services: DS: Data Data Completed and Pending Labs on day of discharge: Labs from last 24 hours 09/22/23 05:15 Hgb 9.3 L Hct 30.3 L Discharge Plan Discharge Attending physician on discharge: Micheal Kelly Discharging Clinician: Ramonita Loyola Patient Disposition: Home, Self-Care Activity: pelvic rest Diet: regular Patient Instructions: Antibiotic Form Stand Alone Forms: General Discharge Information Follow-up/Referrals: Micheal Kelly MD [Emergency Provider] - 4 Weeks Discharge Medications: New ibuprofen 600 mg Tablet 600 mg PO Q6H PRN (Reason: Cramping) Qty: 30 0RF No Action No Home Medications Date of admission: 09/20/23 05:22 Primary Care Provider: UNKNOWN,DOCTOR Admitting Provider: Micheal Kelly Attending physician on admission: Micheal Kelly Condition: Stable
[2023-09-22 07:50] VITALS: BP 100/55; PULSE 82; RESP 16; TEMP 36.7
[2023-09-22] MEDS: MULTIVIT/MIN/PREN/FOL AC/IRON TABLET 1 TAB PO (07:51)
[2023-09-22] MEDS: DOCUSATE SODIUM 100 MG CAPSULE PO (07:51)
[2023-09-22] MEDS: MEASLES,MUMPS,RUBELLA VACCINE 0.5 ML VIAL SUB-Q (07:51)
[2023-09-22] MEDS: POLYSACCHARIDE IRON COMPLEX 150 MG CAPSULE PO (07:51)
[2023-09-22 08:20] LABS: Rapid Plasma Reagin Non-Reactive (NonReactive)
== END 2023-09-22 11:45 | disposition home or self-care (01) | DRG 560 ==
LOC: ANHED 23:59 → ANHOB2 09-22 07:00 → ANHLDR 09-24 10:10 → ANHOB2 09-24 10:10
PROVIDERS: Admitting Provider Obstetrics & Gynecology; Emergency Provider Obstetrics & Gynecology; Visit Provider Obstetrics & Gynecology
DX: O77.0 Labor and delivery complicated by meconium in amniotic fluid (principal); Z37.0 Single live birth; Z3A.40 40 weeks gestation of pregnancy; O70.0 First degree perineal laceration during delivery
CPT/HCPCS: 36415; 76815; 76819; 81001; 85014; 85018; 85025; 86592; 86703; 86762; 86850; 86900; 86901; 87086; 87340; 90710; A9270; G0432; J0696; J2590; J7030

== ENCOUNTER 2024-09-20 01:48 | Observation (INO) | payer OTHER, SELFPAY ==
--- OUTSIDE RECORDS SUMMARY | 2024-09-20 04:06 | XMS_ITS | Continuity of Care Document ---
Author Organization [facility] Address [address] [place] [address] Phone Care Team Providers Care Account Representative Name Role Phone Management, Case Unavailable Unavailable Ahmet GARSIA, Maribel Unavailable Unavailable Allergies, Adverse Reactions, Alerts Substance Reaction Status Criticality No Known Allergies Active No Inform ation Medications Medication Instructions Dosage Effective Dates (start - stop) Status Comments Multi + DHA 27 mg iron-800 mcg-228 mg capsule take 1 capsule by oral route every day - Active Please subs titute free vitamins. Procedures Procedure Date OFFICE OUTPT EST 25 MIN COLLECTION OF VENOUS BLOOD BY VENIPUNCTU RE IAAD EIA HEP B SURF AG HEPATITIS C ANTIBODY; HIV-1 Antigen, W/HIV-1 & HIV-2 Antibody, Single Re BLOOD COUNT; COMPLETE (CBC), AUTOMATED D IFF OB US < 14 Weeks, Single Fetus 16 care, at-risk assessment care, at-risk enhanced service; antepartum management MENTAL HEALTH ASSESSMENT, BY NON-PHYSICI AN URINE TEST, BY VISUAL COLOR CO MPARISON METHODS Advance Directives Directive Yes / No Effective Date File Name No Information Encounters Encounter Description Practice Location Reason(s) For Visit Diagnoses Date Provider Providers Copied on Encounter [facility] , [address], [place], [place], [id number], [place] tel:[phone] [facility] [place] No Information Management Case. [address], [place], [place], [id number], [place]. tel:[phone] Referring Provider: Sita Hudson, [address], [place], [address]. tel:[phone] lting Provider: Maribel Leo, [address], [place], [address]. tel:[phone] OFFICE OUTPT EST 25 MIN [facility] , [address], [place], [place], [address] [place] [address], [place] tel:[phone] [facility] [place] routine (chief complaint) Encntr for suprvsn of normal first preg, second [id number] weeks gestation of Tristan Sita. [address], [place], [place], [address], [place]. tel:[phone] Referring Provider: Sita Albrightegan, [address], [place], [address]. tel:[phone] [facility] , [address], [place], [place], [id number], [place] tel:[phone] [facility] [place] No Information Aldo Barlow. [address], [place], [place], [address] [place] [address], [place]. tel:[phone] Referring Provider: Yen Carlson, [address], [place], [address]. tel:[phone] [facility] , [address], [place], [place], [address], [place] tel:[phone] [facility] [place] routine (chief complaint) Encntr for suprvsn of normal first preg, first weeks gestation of Management Case. [address], [place], [place], [address], [place]. tel:[phone] Referring Provider: Bharathi Elizalde, [address], [place], [address]. tel:[phone] lting Provider: Maribel Leo, [address], [place], [address]. tel:[phone] [facility] , [address], [place], [place], [address], [place] tel:[phone] [facility] [place] Encounter for test, result unknown Tristan Buckner. [address], [place], [place], [address], [place]. tel:[phone] Referring Provider: Registered Nurse, [address], [place], [address]. tel:[phone] lting Provider: Freddie Aggarwal [address], [place], [address]. tel:[phone] Family History Family Member Type Diagnosis Age At Onset No Information Payers Payer name Insurance type Covered constitution party ID Authoriza tion(s) No Information Social History Type Description Quantity Date Captured Comments Alcohol Use Details Unknown Caffeine Use Details Unknown Tobacco Use Status No Information Smoking Status No Information Sex Female Chief Complaint And Reason For Visit No Information Reason For Referral Reason For Referral No Information History Of Present Illness Encounter Date Complaint History Of Prese nt Illness routine routine 11/01/15 PN intak e completed at [facility] with 20yo g1 at 13 2/7 wks by LMP 07/31/15, EDC 05/06/16. Bolivian speaking. RF99 Lives with partner, family supportive. See scanned documents for more information. Referred to [facility], WIC, [place] [facility]. class teaching reviewed as follows; anticipated course of care to ensure healthy and good delivery outcomes, avoid eating raw meat or unpasteurized dairy products, appropriate over the counter medications, hospital facilities, no drug, alcohol, tobacco use in and risk it pose to fetus, exercising in , healthy fluid intake; nutrition and weight gain in , vitamins daily, risk factors identified by history, s/s of miscarriage, seat belt use. Client v/u of all teaching and denies further questions. Maribel Leo, RN, BSN. Functional Status Date Functional Assessmen t No Information Instructions Date Instruction Additional Infor mation No Information Assessments Type Assessment Date No Information Patient Care Teams Name Effective Dates (start - stop) Status Members No Information
--- OUTSIDE RECORDS SUMMARY | 2024-09-20 04:06 | XMS_ITS | Data Portability ---
Author Organization [facility] Address [address] [place] [address] Assessment Encounter Date Assessment Date Assessment LastModified by Organization Details LastModified Time 09/15/2024 09/15/2024 Patient is ___weeks . Discussed plan. [email or web address] Not available 09/15/2024 11:34:06 Plan of Treatment Reminders Order Date Submit Date Provider Last Modified By Organization Details Last Modified Time Details Appointments INDUCTION 2024 04:00P Jacqueline Loyola CNM Not available Not available Not available OB ROUTINE 2024 10:45A Jacqueline Loyola CNM Not available Not available Not available Lab drug screen, urine 2024 025 [facility], [address], [place], [address], 09/07/2024 13:16:34 CT + NG + TV, RNA, unspecifi ed specimen 2024 025 [facility] (Lab), [address], [place], [address], 09/10/2024 15:02:53 HbA1c (hemoglob in A1c), blood 2024 025 [facility] (Lab), [address], [place], [address], 09/08/2024 11:10:18 type + screen, blood 2024 025 [facility] (Lab), [address], [place], [address], 09/08/2024 11:10:18 rubella igg Ab, titer, serum 2024 [facility] (Lab), [address], [place], [address], 09/08/2024 11:10:20 CBC w/ auto diff 2024 [facility] (Lab), [address], [place], [address], 09/08/2024 11:10:17 hepatitis C virus Ab, serum 2024 [facility] (Lab), [address], [place], [address], 09/08/2024 11:10:19 HBsAg (hepatiti s B surface Ag), serum [address] [place] [address] (Lab), [address], [place], [address], 09/08/2024 11:10:19 RPR (rapid plasma reagin), serum [address] [place] [address] (Lab), [address], [place], [address], 09/08/2024 11:10:20 HIV 1+2 AB + HIV 1 p24 Ag, qualitati ve immunoass ay, serum 2024 [facility] (Lab), [address], [place], [address], 09/08/2024 11:10:19 streptoco ccus group B, culture, unspecifi ed specimen 2024 [facility] (Lab), [address], [place], [address], 09/10/2024 15:02:55 culture, urine 2024 025 [facility] (Lab), [address], [place], [address], 09/10/2024 15:02:54 Referral None recorded. Procedures None recorded. Surgeries None recorded. Imaging US, obstetric , biophysic al profile + non-stres s test 2024 025 [email or web address] [place], [facility] [address], [place], [address], 09/15/2024 13:27:35 non-stres s test 2024 025 [email or web address] [facility] [address], [place], [address], 09/16/2024 09:10:12 US, obstetric , follow-up 2024 025 [email or web address] [place], [facility] [address], [place], [address], 09/07/2024 22:02:45 Medication Orders Diflucan 150 mg tablet [address] [id number], [address], [place], [place], [id number], 09/15/2024 11:21:05 Patient TargetsNo targets recorded. Patient InstructionsNo instructions recorded. Reason for Referral None Reported. Results Created Date Observation Date Name Description Value Unit Range Abnormal Flag Note LastModifiedBy Organization Detail LastModifiedTime 09/08/1909/07/2024 CBC W/DIF F WBC 8.1 10'3/ uL 3.5-[address] [facility] (Lab) [address], [place], [address], 09/08/2024 11:10:17 09/08/19 25 09/07/2024 CBC W/DIF F RBC 3.90 10'6/ uL (based on docume nted legal sex) 3.80-[address] [facility] (Lab) [address], [place], [address], 09/08/2024 11:10:17 09/08/19 25 09/07/2024 CBC W/DIF F HGB 9.0 g/dL (based on docume nted legal sex) 11.6-[address] [facility] (Lab) [address], [place], [address], 09/08/2024 11:10:17 09/08/19 25 09/07/2024 CBC W/DIF F HCT 30.0 % (based on docume nted legal sex) 34.0-[address] [facility] (Lab) [address], [place], [address], 09/08/2024 11:10:17 09/08/19 25 09/07/2024 CBC W/DIF F MCV 76.9 fL 80.0-9 9[address] [facility] (Lab) [address], [place], [address], 09/08/2024 11:10:17 09/08/19 25 09/07/2024 CBC W/DIF F MCH 23.1 pg 27.0-3 [address] [facility] (Lab) [address], [place], [address], 09/08/2024 11:10:17 09/08/19 25 09/07/2024 CBC W/DIF F MCHC 30.0 g/dL 32.0-3 [address] [facility] (Lab) [address] [place], [address], 09/08/2024 11:10:17 09/08/19 25 09/07/2024 CBC W/DIF F RDW 15.7 % 11.0-1 [address] [facility] (Lab) [address] [place], [address], 09/08/2024 11:10:17 09/08/19 25 09/07/2024 CBC W/DIF F plt 219 10'3/ uL 150-[address] [facility] (Lab) [address], [place], [address], 09/08/2024 11:10:17 09/08/19 25 09/07/2024 CBC W/DIF F MPV 11.3 fL 8.8-[address] [facility] (Lab) [address], [place], [address], 09/08/2024 11:10:17 09/08/19 25 09/07/2024 CBC W/DIF F NRBC's 0.0 % 0.[address] [facility] (Lab) [address], [place], [address], 09/08/2024 11:10:17 09/08/19 25 09/07/2024 CBC W/DIF F absolute NRBCs 0.0 10'3/ uL no refere nce range establ ished Not Available [facility] (Lab) [address] , [place], [address], 09/08/2024 11:10:17 09/08/19 25 09/07/2024 CBC W/DIF F neutrophils 60.9 % 34.0-[address] [facility] (Lab) [address], [place], [address], 09/08/2024 11:10:17 09/08/19 25 09/07/2024 CBC W/DIF F lymphocytes 26.5 % 15.0-[address] [facility] (Lab) [address], [place], [address], 09/08/2024 11:10:17 09/08/19 25 09/07/2024 CBC W/DIF F monocytes 10.6 % 1.0-[address] [facility] (Lab) [address], [place], [address], 09/08/2024 11:10:17 09/08/19 25 09/07/2024 CBC W/DIF F eosinophils 0.9 % 0.0-8. [address] [facility] (Lab) [address], [place], [address], 09/08/2024 11:10:17 09/08/19 25 09/07/2024 CBC W/DIF F basophils 0.4 % 0.0-2. [address] [facility] (Lab) [address], [place], [address], 09/08/2024 11:10:17 09/08/19 25 09/07/2024 CBC W/DIF F immature granulocytes 0.7 % no define d refere nce range Immat ure Granu locyt es (IG) repre sents autom ated enume ratio n of Metam yeloc ytes, Myelo cytes and Promy elocy michael when IG is < 5%. Blast s are not inclu ded in IG and repor curtis separ ately if prese nt. Not Available [facility] (Lab) [address], [place], [address], 09/08/2024 11:10:17 09/08/19 25 09/07/2024 CBC W/DIF F absolute neutrophils 5.0 10'3/ uL 1.5-8. [address] [facility] (Lab) [address], [place], [address], 09/08/2024 11:10:17 09/08/19 25 09/07/2024 CBC W/DIF F absolute lymphocytes 2.2 10'3/ uL 1.0-4. [address] [facility] (Lab) [address], [place], [address], 09/08/2024 11:10:17 09/08/19 25 09/07/2024 CBC W/DIF F absolute monocytes 0.9 10'3/ uL 0.2-1. [address] [facility] (Lab) [address], [place], [address], 09/08/2024 11:10:17 09/08/19 25 09/07/2024 CBC W/DIF F absolute eosinophils 0.1 10'3/ uL 0.0-0. [address] [facility] (Lab) [address], [place], [address], 09/08/2024 11:10:17 09/08/19 25 09/07/2024 CBC W/DIF F absolute basophils 0.0 10'3/ uL 0.0-0. [address] [facility] (Lab) [address], [place], [address], 09/08/2024 11:10:17 09/08/19 25 09/07/2024 CBC W/DIF F absolute immature granulocytes 0.1 10'3/ uL 0.00-0 .10 Refer ence range s for nonbi nary/ inter sex or unspe cifie d gende r patie nts have not been estab lishe d. Pleas e refer to the denniso wing table for range s estab lishe d for cisge nder patie nts and evalu ate in the clini joseph arlin xt of the indiv idual patie nt: https :[email or web address] hoyt book. nm.or g/gen derx Not Available [facility] (Lab) [address], [place], [address], 09/08/2024 11:10:17 09/08/1909/07/2024 TYPE/ RH/SC REEN ABO/Rh type O POS Not Available [facility] (Lab) [address], [place], [address], 09/08/2024 11:10:18 09/08/1909/07/2024 TYPE/ RH/SC REEN antibody screen NEG Not Available [facility] (Lab) [address], [place], [address], 09/08/2024 11:10:18 09/08/1909/07/2024 TYPE/ RH/SC REEN exp date 2024 23:[address] [facility] (Lab) [address], [place], [address], 09/08/2024 11:10:18 09/08/19 25 09/07/2024 HEMOG LOBIN A1C hemoglobin A1C 6.0 % 4.0-5. 6 high The Ameri can [employer] michael [employer] iatio n recom mends that a prima ry goal of thera py shoul d be a HBA1C of < 7% and that physi cians shoul d reeva luate the treat ment regim en in patie nts with HBA1C value s consi stent ly > 8%. <5.7% Magdalena l 5.7 - 6.4% Incre ased risk for diabe michael >=6.5 % Diagn ostic of diabe michael <7.0% Goal of thera py >8.0% Actio n sugge sted Not Available [facility] (Lab) [address], [place], [address], 09/08/2024 11:10:18 09/08/1909/07/2024 HIV 1/2 ANTIG EN/AN TIBOD Y, REFLE X CONFI RMATI ON HIV antigen/anti body Nonrea ctive nonrea ctive HIV-1 antig en and HIV-1 /HIV- 2 antib odies were not detec curtis. No labor atory evide nce of HIV infec tion. Not Available [facility] (Lab) [address], [place], [address], 09/08/2024 11:10:19 09/08/1909/07/2024 HEPAT ITIS C ANTIB ALEKSANDR SCREE N, REFLE X TO CONFI RMATI ON hepatitis C antibody Non-re active non-re active Antib odies to HCV Not Detec curtis, does not exclu de the possi bilit y of expos ure to HCV. Not Available [facility] (Lab) [address], [place], [address], 09/08/2024 11:10:19 09/08/1909/07/2024 HEPAT ITIS B SURFA CE ANTIG EN hepatitis B surface antigen Non-re active non-re active This assay was perfo rmed using [employer] ratio n reage nts and test kits. Value s obtai hamlet with other assay metho ds or kits canno t be used inter flowers eably . Not Available [facility] (Lab) [address], [place], [address], 09/08/2024 11:10:19 09/08/1909/07/2024 RUBEL LA IGG ANTIB ALEKSANDR, QUANT rubella antibodies, IgG Reacti ve reacti ve Not Available [facility] (Lab) [address], [place], [address], 09/08/2024 11:10:20 09/08/19 25 09/07/2024 RUBEL LA IGG ANTIB ALEKSANDR, QUANT rubella antibodies, IgG quant 45.8 IU/mL >=10 Non-r eacti ve (Non- Immun e) <10 IU/mL React dilma (Immu ne) > or = 10 IU/mL Not Available [facility] (Lab) [address], [place], [address], 09/08/2024 11:10:20 09/08/19 25 09/07/2024 RPR SCREE N, REFLE X TITER /CONF IRMAT ION RPR qualitative Nonrea ctive nonrea ctive Not Available [facility] (Lab) [address] [place], [address], 09/08/2024 11:10:20 09/08/19 25 09/07/2024 CT/GC AND TRICH OMONA S VAGIN RADHA (RRNA ), URINE chlamydia trachomatis, PCR Negati ve negati ve Not Available [facility] (Lab) [address] [place], [address], 09/10/2024 15:02:53 05/13/20 25 09/07/2024 CT/GC AND TRICH OMONA S VAGIN RADHA (RRNA ), URINE neisseria gonorrhoeae, PCR Negati ve negati ve Not Available [facility] (Lab) [address], [place], [address], 09/10/2024 15:02:53 09/08/19 25 09/07/2024 CT/GC AND TRICH OMONA S VAGIN RADHA (RRNA ), URINE trichomonas vaginalis ribosomal RNA (rrna) Negati ve negati ve Not Available [facility] (Lab) [address], [place], [address], 09/10/2024 15:02:53 09/08/19 25 09/07/2024 CULTU RE: URINE result report SEE RESULT S BELOW Test: Cultu re: Urine Speci men Sourc e: Urine - Clean Catch Speci men Type: Urine Speci men Date: 2024 1327 Resul t Date: 2024 0503 Resul t Statu s: Final resul t Abnor mal: No Resul ting Lab: [facility] [address] [facility] [address] Tel: CULTU RE ----- ----- ----- --- No growt h in 1 day (dete ction level of 10,00 0 colon ies / ml.) Not Available [facility] (Lab) [address], [place], [address], 09/10/2024 15:02:54 09/08/19 25 09/07/2024 CULTU RE: GROUP B STREP SCREE N, REFLE X SUSCE PTIBI LITY result report SEE RESULT S BELOW Test: Cultu re: Group B Strep , Refle x Susce ptibi lity ([facility]/ [facility] ) Speci men Sourc e: Vagin a/Rec ela Speci men Type: Vagin al/Re ctal Speci men Date: 2024 1327 Resul t Date: 2024 1359 Resul t Statu s: Final resul t Abnor mal: No Resul ting Lab: [facility] [address] [facility] [address] Tel: CULTU RE ----- ----- ----- --- No Group B strep isola curtis at 2 days (david ctive broth enhan cemen t) Not Available [facility] (Lab) [address], [place], [address], 09/10/2024 15:02:54 09/08/19 25 09/07/2024 drug scree n, urine Amphetamines : negati ve Not Available [facility] [address], [place], [address], 09/07/2024 12:59:52 09/08/19 25 09/07/2024 drug scree n, urine Cannabinoids : negati ve Not Available [facility] [address], [place], [address], 09/07/2024 12:59:52 09/08/19 25 09/07/2024 drug scree n, urine Cocaine: negati ve Not Available [facility] [address], [place], [address], 09/07/2024 12:59:52 09/08/19 25 09/07/2024 drug scree n, urine Opiates: negati ve Not Available [facility] [address], [place], [address], 09/07/2024 12:59:52 09/08/19 25 09/07/2024 drug scree n, urine Phenocyclidi ne: negati ve Not Available [facility] [address], [place], [address], 09/07/2024 12:59:52 09/08/19 25 09/07/2024 drug scree n, urine Barbiturates : negati ve Not Available [facility] [address], [place], [address], 09/07/2024 12:59:52 09/08/19 25 09/07/2024 drug scree n, urine Benzodiazepi karlo: negati ve Not Available [facility] [address], [place], [address], 09/07/2024 12:59:52 09/08/19 25 09/07/2024 drug scree n, urine Ethanol: negati ve Not Available [facility] [address], [place], [address], 09/07/2024 12:59:52 09/08/19 25 09/07/2024 drug scree n, urine Hallucinogen s: negati ve Not Available [facility] [address], [place], [address], 09/07/2024 12:59:52 09/08/19 25 09/07/2024 drug scree n, urine Inhalants: negati ve Not Available [facility] [address], [place], [address], 09/07/2024 12:59:52 09/08/19 25 09/07/2024 drug scree n, urine Anabolic Steroids: negati ve Not Available [facility] [address], [place], [address], 09/07/2024 12:59:52 09/08/19 25 09/07/2024 drug scree n, urine Other: negati ve Not Available [facility] [address], [place], [address], 09/07/2024 12:59:52 09/08/19 25 09/07/2024 US, obste tric, follo w-up No observ ation record ed. [email or web address] [facility] [address], [place], [address], 09/07/2024 12:03:04 09/08/19 25 09/07/2024 US, obste tric, follo w-up No observ ation record ed. [email or web address], [place], [address], 09/07/2024 11:56:56 09/16/19 25 09/15/2024 non-s tress test No observ ation record ed. [email or web address] [facility] [address], [place], [address], 09/16/2024 18:26:10 09/16/19 non-s tress test No observ ation record ed. [email or web address] [facility] [address], [place], [address], 09/15/2024 11:25:07 09/16/19 25 09/15/2024 US, obste tric, bioph ysica l profi le + non-s tress test No observ ation record ed. [email or web address] [facility] [address], [place], [address], 09/15/2024 11:35:30 09/16/19 25 09/15/2024 US, obste tric, follo w-up No observ ation record ed. [email or web address] [address], [place], [address], 09/16/2024 09:46:10 Result Notes None recorded. Problems Name Problem SNOMED Code Status Onset Date Resolution Date Notes Provider Name and Address Organization Details Recorded Time Pregnanc y 21802243 Completed 202209/26/2023 Enedelia ryan, [facility] 5 08:54:56 High hemoglob in A1c level 795060135 Completed 6.1 - early 1hr WNL, GTT NL Britaney Ethan [facility] 4 10:42:57 Pica 80693237 Completed coffee grounds, resolved after iron infusion Lizzeth Long [facility] 4 10:42:57 Anemia 058027256 Completed severe- Iron Infusion referral sent 06/24 Lizzeth Long [facility] 4 10:42:57 Late entry into care 824790573 Active 2024 Enedelia Good [facility] 5 08:58:18 Pregnanc y 28691609 Active 2024 Enedelia Good [facility] 5 08:54:56 History of anemia 662913479 Active 2024 Enedelia Good [facility] 5 08:57:56 Late entry into care 633076793 Active 2024 Enedeliaraul Good [facility], [facility] 5 08:58:18 History of chlamydi al infectio n 023399481 Active 2024 Ramonita Loyola, [facility] [address], [place], [address], [place] [facility] 5 09:26:29 High hemoglob in A1c level 736757894 Active 2024 6.0 checking bs QID antenata l testing 39wk Fely Jeffery [facility] 5 09:04:05 Problem Notes None recorded. Procedures Surgical History None recorded. Imaging Results Imaging Date Name Status LastModified by Organiz [facility] Details LastModified Time 09/07/2024 US, obstetric, follow-up completed [email or web address] [facility] [address], [place], [address], 09/07/2024 12:03:04 09/07/2024 US, obstetric, follow-up completed [email or web address], [place], [address], 09/07/2024 11:56:56 09/15/2024 non-stress test completed [email or web address] [facility] [address], [place], [address], 09/16/2024 18:26:10 09/15/2024 non-stress test completed [email or web address] [facility] [address], [place], [address], 09/15/2024 11:25:07 09/15/2024 US, obstetric, biophysical profile + non-stress test completed [email or web address] [facility] [address], [place], [address], 09/15/2024 11:35:30 09/15/2024 US, obstetric, follow-up completed [email or web address] [address], [place], [address], 09/16/2024 09:46:10 Procedure Notes None recorded. Medical Equipment None Reported. Allergies No known drug allergies Medications Name Sig Start Date Stop Date Status Note LastModified by Organization Details LastModified Time fluconazole 150 mg tablet TAKE 1 TABLET BY MOUTH DIRECTED 09/15 completed Not Available Not Available Not Available ketoconazol e 2 % topical cream APPLY TOPICALLY TO FEET EVERY DAY FOR 6 WEEKS 09/07 completed Not Available Not Available Not Available active Not Available Not Avai lable Not Available Vitals Date Recorded Body height Body mass index (BMI) Body weight Body weight Systolic blood pressure Diastolic blood pressure Systolic blood pressure Diastolic blood pressure Provider Name and Address Organization Details Last Updated DateTime 160.02 cm 32.9 kg/m2 14470.1 8 g 49875.1 8082 g 110 mm[Hg] 73 mm[Hg] 110 mm[Hg] 73 mm[Hg] Enedelia Good [facility] 5 08:58:43 Date Recorded Body weight Systolic blood pressure Diastolic blood pressure Provider Name and Address Organization Details Last Updated DateTime 09/15/2024 21732.7731 9 g 114 mm[Hg] 79 mm[Hg] Palak Neff [facility] 09/15/2024 11:19:21 Date Recorded Body weight Body mass index (BMI) Body height Systolic blood pressure Diastolic blood pressure Provider Name and Address Organization Details Last Updated DateTime 09/15/2024 14058.77 319 g 33.1 kg/m2 160.02 cm 114 mm[Hg] 79 mm[Hg] Enedelia Good [facility] 11:34:40 Social History Question Answer Notes LastModified by Organizat ion Details LastModified Time Tobacco Smoking Status Former Smoker Enedelia Good [facility] 06/19/2023 15:18:41 If You Are , What Was Your Level Of Alcohol Consumption Prior To ? Occasional [email or web address] Information not available 06/19/2023 Are You Blind Or Do You Have Difficulty Seeing? No [email or web address] Information not available 06/19/2023 What Is Your Level Of Caffeine Consumption? Occasional [email or web address] Information not available 06/19/2023 In The 14 Days Before Symptom Onset, Have You Had Close Contact With A Laboratory-confir med COVID-19 While That Case Was Ill? No [email or web address] Information not available 06/19/2023 In The 14 Days Before Symptom Onset, Have You Had Close Contact With A Person Who Is Under Investigation For COVID-19 While That Person Was Ill? No [email or web address] Information not available 06/19/2023 Have You Been To An Area Known To Be High Risk For COVID-19? No [email or web address] Information not available 06/19/2023 Are You Deaf Or Do You Have Serious Difficulty Hearing? No [email or web address] Information not available 06/19/2023 What Type Of Diet Are You Following? REGULAR Information not available 06/19/2023 Do You Use Your Seat Belt Or Car Seat Routinely? Yes [email or web address] Information not available 06/19/2023 Do You Have Smoke And Carbon Monoxide Detectors In Your Home? Yes [email or web address] Information not available 06/19/2023 Do You Use Sunscreen Routinely? Yes [email or web address] Information not available 06/19/2023 Has Tobacco Cessation Counseling Been Provided? No [email or web address] Information not available 06/19/2023 Do You Have Difficulty Walking Or Climbing Stairs? No [email or web address] Information not available 06/19/2023 Sex: Unknown Functional Status Question Answer Note LastModified by Organizat ion Details LastModified Time Do you use any illicit or recreational drugs? No [email or web address] Information not available 06/19/2023 Do you or have you ever used any other forms of tobacco or nicotine? No [email or web address] Information not available 06/19/2023 What is your level of alcohol consumption? None [email or web address] Information not available 06/19/2023 Are you able to walk? YESWOREST [email or web address] Information not available 06/19/2023 Are you able to care for yourself? Yes [email or web address] Information n ot available 06/19/2023 Do you have difficulty dressing or bathing? No [email or web address] Information not available 06/19/2023 What is your exercise level? Occasional [email or web address] Information not available 06/19/2023 Mental Status Question Answer Note LastModified by Organization D etails LastModified Time Do you feel stressed (tense, restless, nervous, or anxious, or unable to sleep at night)? [id number] [email or web address] Information not available 06/19/2023 Family History Nothing Reported. Medical History Condition Response Allergies (Food, seasonal, environmental ) N Other Y Breast Cancer N Drug/Latex Allergies/Reactions N Blood Transfusion N Lung Disease N Dermatologic Disorders N Defects or Inherited Disease N Breast Problem N Gestational Diabetes N Hematologic disorders N Anesthesia Complications N History of STI Y Deep Vein Thrombosis N Polycystic ovary syndrome N Anxiety Disorder N Autoimmune disease N Arthritis N Polyps N Infertility N History of abnormal pap N Acid Reflux (GERD) N Cancer N Varicosities N Stroke N Neurologic/Epilepsy N Endometriosis N High Cholesterol N Fibromyalgia N Headaches N Kidney Disease N Heart Problems N Kidney or Bladder Problems N Thyroid Problems N GI Problems Y Eating Disorder N Anemia Y Art (IVF or FET) N Psychiatric Illness N Ovarian Cancer N Diabetes N Pulmonary (TB, Asthma) N Hepatitis/Liver Disease N No Past Medical History N Eczema N Urinary Tract Infection N Abuse/Domestic Violence N Asthma N Trauma/Violence N Depression/ depression N Heart Disease N Pre-Eclampsia N Hypertension N Osteoporosis N Thrombophilias N Gynecological History Statement/Question Response Abnormal Pap N Date of Last Mammogram Date of LMP Sexually Active? Y Date of DEXA bone scan Date of Last Pap Smear Sexual Problems? N Current Control Method LMP Approximate Obstetrics History GPAL:G 4 P 3 0 0 3 Type Value Full Term 3 Living 3 Total 4 Past Encounters Encounter ID Performer Location Encounter Start Date Encounter Closed Date Diagnosis/Indication Diagnosis SNOMED-CT Code Diagnosis ICD10 Code Diagnosis Note [id number] Micheal Kelly MD [facility] [address],[place] [address] 03/27/2023 14:46:26 03/27/2023 15:58:35 screening [id number] Z36.87 O26.843 Z3A.15 [id number] Micheal Kelly MD [facility] [address],[place] [address] 03/27/2023 14:58:21 03/27/2023 16:36:44 Routine care 287590611 Z34.90 [id number] Micheal Kelly MD [facility] [address],[place] [address] 04/24/2023 14:20:57 04/24/2023 16:01:33 screening for malformation 237540646 Z36.3 Z3A.19 [id number] MD Megan Lowe [address],[place] [address] 04/24/2023 14:22:06 04/24/2023 16:31:49 Serum thyroid stimulating hormone level outside reference range [id number] R89.1 Routine an tenatal care 223539021 Z34.90 [id number] Micheal Kelly MD [facility] [address],[place] [address] 05/22/2023 15:06:10 05/22/2023 15:51:13 Routine care [id number] Z34.90 [id number] MD Megan Lowe [address],[place] [address] 06/19/2023 15:06:32 06/19/2023 15:56:08 Routine care [id number] Z34.90 [id number] Ramonita Loyola, [facility] [address],[place] [address] 07/04/2023 12:20:31 07/04/2023 13:06:20 Routine care [id number] Z34.83 [id number] MD Megan Lowe [address],[place] [address] 07/25/2023 11:55:05 07/25/2023 12:40:32 Routine care 130963830 Z34.90 [id number] MD Megan Lowe [address],[place] [address] 07/31/2023 10:59:22 07/31/2023 11:34:00 Anemia of 83172454 O99.019 Z3A.33 [id number] MD Megan Lowe [address],[place] [address] 08/08/2023 12:10:10 08/08/2023 12:29:21 Routine care 856920543 Z34.90 [id number] MD Megan Lowe [address],[place] [address] 08/29/2023 10:59:15 08/29/2023 11:46:05 Routine care 737358201 Z34.90 [id number] MD Megan Lowe [address],[place] [address] 09/17/2023 17:29:13 09/17/2023 18:22:23 Routine care 310746797 Z34.90 [id number] MD Megan Lowe [address],[place] [address] 09/30/2023 16:57:51 10/01/2023 03:16:48 management 616218202 Z39.1 Pt here for consult. Pt delivered a full term on 09/21/23. Pt states the infant breast fed several times during her post hospital stay but has refused to latch since they were discharged . Pt states the infant has not latched and breastfed successful ly since 09/23/23 and she has been unable to pump because the pump from [employer] does not turn on. Pt states the pump has been charged and they have attempted to turn the pump on while it is plugged into the outlet and the motor does not function. Pt states they have never been able to turn the pump on. Pt states her milk came in on 09/25/23 but she was unable to remove milk and her breasts are now soft again. Pt states her breast tissue has not been stimulated at all since 09/23/23. Pt also has inverted nipples. Pt informed her milk supply is likely decreased due to no breast feeding or pumping since 09/23/23. Pt instructed on the importance of pumping around the clock and offering the breast with each feeding. Infant's suck assessed. does not have a coordinate d suck. Pt states the infant does not suck a pacifier and has difficulty initially taking a bottle. Pt states the sucks differentl y than her other children but eventually coordinate s his suck and takes 3 ounces of formula. Pt does not appear to have a lip tie or a tongue tie. Pt sucked a bottle successful ly and was put to breast. Pt had an appropriat e hold and infant to the breast with a wide open mouth. Infant to breast well but did not latch or suckle at the breast. Pt's nipple is inverted and the infant simply sat with the pt's nipple in his mouth but did not nurse. Pt informed the is not stimulated to suck because he does not feel her nipple on the roof of his mouth due to nipple shape. Pt provided with a new [employer] breast pump. Pt pumped and infant to breast again with the nipple pulled out but the infant still did not latch and nurse. Pt pumped for 15 minutes and got a small amount of milk. Infant given expressed breast milk from the bottle. Pt instructed on pumping every 3 hours and pumping for only a short amount of time to pull the nipple out prior to attempting to breast feed. Pt verbalized understand ing. Pt will pump for several minutes every 3 hours, put the infant to breast, and pump for 15 minutes regardless of if the nurses or not so her breasts are stimulated more in attempt to increase her milk supply. Pt will encourage the infant to take a pacifier to help coordinate his suck and will continue to bottle feed the infant until he successful ly breast feeds. Pt will come to the office next week for follow up. Pt will call back with additional questions or concerns prior to her appt. Yen galvan, [facility] [id number] Micheal Kelly MD [facility] [address],[place] [address] 06/15/2024 13:37:43 06/16/2024 06:23:35 screening for malformation [id number] Z36.3 Z3A.25 [id number] Micheal Kelly MD [facility] [address],[place] [address] 09/07/2024 11:16:19 09/07/2024 11:53:13 Insufficient care 6041709783 109 O09.33 Z3A.37 [id number] Ramonita Loyola CNM [facility] [address],[place] [address] 09/07/2024 11:17:13 09/08/2024 09:16:06 screening 334532532 Z36.89 Candidiasis of vagina 72 967349 B37.31 care status 24 0322450 Z34.83 Bacterial disease screening 409227393 Z11.8 Gestation period, 37 weeks 55463727 Z3A.37 [id number] Ramonita Loyola CNM [facility] [place] [address] 09/15/2024 10:40:14 09/15/2024 12:07:34 Gestation period, 39 weeks 67832452 Z3A.39 cont pnv [id number] Ramonita Loyola CNM [facility] [address] [place] [address] 09/15/2024 10:37:57 09/15/2024 11:36:16 High hemoglobin A1c level 672317116 R73.09 [id number] Micheal Kelly MD [facility] [address] [address] 09/15/2024 10:44:17 09/15/2024 11:35:53 High risk 60481429 O09.33 Z3A.39 Health Concerns Section Related Observation LastModified by Organization Detai ls LastModified Time None Recorded Concern Status LastModified by Organization Details LastModified Time None Recorded Advance Directives Directive None Recorded Payers Encounter Date Sequence Insurance Name Policy Number Policy Mark Covered Member ID Mark Member ID Guarantor Name 09/07/2024 1 [facility] ON OR AFTER 10/26/20 (MEDICAID REPLACEMENT - HMO) Nancy Byren [id number] Nancy Byrne 09/07/2024 1 [facility] ON OR AFTER 10/26/20 (MEDICAID REPLACEMENT - HMO) Nancy Byrne [id number] Nancy Byrne 09/15/2024 1 [facility] ON OR AFTER 10/26/20 (MEDICAID REPLACEMENT - HMO) Nancy Byrne [id number] Nancy Byrne 09/15/2024 1 [facility] ON OR AFTER 10/26/20 (MEDICAID REPLACEMENT - HMO) Nancy Byrne [id number] Nancy Byrne 09/15/2024 1 [facility] ON OR AFTER 10/26/20 (MEDICAID REPLACEMENT - HMO) Nancy Byrne [id number] Nancy Byrne OBGyn Episode Ob Episode Information Episode Created Date Number of Fetuses Patient Bloodtype Patient rh Status Prepregnancy Weight lbs Domestic Partner Domestic Partner Phone Father Name Garde Manger Status 03/27/20 23 1 CLOSED Fetus Data First Name Last Name Admitted to NICU Weight (g) Sex Living Outcome Pediatric Complications Fetus ID Race Codes Race Delivery Type 3175.14 4 F Full Term [id number] Vaginal Delivery Idris Calculation Initial Idris Date Initial Exam Date Initial Exam Provider Initial Ultrasound Date Last Menstrual Period Date Ultra Sound Weeks Gestation 0 Eighteen To Twenty Week Idris Update Ultra Sound Date Fundal Height At Umbil Quickening Date Ultra Sound Latest Weeks Gestation Final Idris Confirmed By Final Idris Confirmed Date Final Idris Date Ultra Sound Latest Days Gestation 0 0 Menstrual History Last Menstrual Date Menses Monthly On Bcp Conception Prior Menses Frequency Hcg Plus Date Menarche Onset Age Delivery Information Delivery Date Delivery Type Labor Anesthesia Weeks Gestation Incision Type Labor Labor Length Hrs Delivered By Post Complications Tubal Sterilization Discharge Date Comments 7 40.4 Carly Discharge Information Feeding Method Contraceptive Method Maternal HG B and HCT Levels Ob Episode Information Episode Created Date Number of Fetuses Patient Bloodtype Patient rh Status Prepregnancy Weight lbs Domestic Partner Domestic Partner Phone Father Name Garde Manger Status 03/27/20 23 1 O Positive CLOSED Fetus Data First Name Last Name Admitted to NICU Weight (g) Sex Living Outcome Pediatric Complications Fetus ID Race Codes Race Delivery Type 3827.18 25 M true Full Term mec on ROM, thick/yellow [id number] Vaginal Delivery Problems Problem Notes Problem Name Start Date End Date Resolution Snomed Code Not e High hemoglobin A1c level 551962946 6.1 - early 1hr WNL, GTT NL Pica [id number] coffee radha unds, resolved after iron infusion Anemia 082693618 severe- Ir on Infusion referral sent 06/24 Idris Calculation Initial Idris Date Initial Exam Date Initial Exam Provider Initial Ultrasound Date Last Menstrual Period Date Ultra Sound Weeks Gestation 09/18/2023 03/27/2023 03/27/2023 12/25/2022 15 Eighteen To Twenty Week Idris Update Ultra Sound Date Fundal Height At Umbil Quickening Date Ultra Sound Latest Weeks Gestation Final Idris Confirmed By Final Idris Confirmed Date Final Idris Date Ultra Sound Latest Days Gestation 0 [email or web address] 03/27/2023 09/18/19 24 0 Pre-dion Flowsheet Flowsheet Date 03/27/2023 Bates Score Blood Edema Fundus Height Fundus Units Glucose Ketones Leukocytes Nitrite Labor Signs Protein Cervic Dilation Cervic Effacement Cervic Station Type Weight in lbs Pre/Post Dialysis Refused Weight 169.423527841371 BP Diastolic BP Location Tested BP Systolic BP Type 78 R arm 120 sitting Fetus Heart Rate Present Fetus Movement Comments this patient is a 27-year-ol d female 3 para 2001 at 15 weeks' gestation who presents for initial care. She is no complaints. She is 2 unremarkable pregnancies with vaginal births. We discussed care in detail. She will begin routine care. Flowsheet Date 04/24/2023 Bates Score Blood Edema Fundus Height Fundus Units Glucose Ketones Leukocytes Nitrite Labor Signs Protein Cervic Dilation Cervic Effacement Cervic Station Type Weight in lbs Pre/Post Dialysis Refused BP Diastolic BP Location Tested BP Systolic BP Type Fetus Heart Rate Present Fetus Movement Comments Flowsheet Date 04/24/2023 Bates Score Blood Edema Fundus Height Fundus Units Glucose Ketones Leukocytes Nitrite Labor Signs Protein Cervic Dilation Cervic Effacement Cervic Station Type Weight in lbs Pre/Post Dialysis Refused Weight 171.305509394683 BP Diastolic BP Location Tested BP Systolic BP Type 74 R arm 112 sitting Fetus Heart Rate Present A 151 Fetus Movement Comments repeat TSH today, normal candice davina scan today, good growth, very average growth, passed 1 hour glucose tolerance test -early Flowsheet Date 05/22/2023 Bates Score Blood Edema Fundus Height Fundus Units Glucose Ketones Leukocytes Nitrite Labor Signs Protein Cervic Dilation Cervic Effacement Cervic Station 25 Type Weight in lbs Pre/Post Dialysis Refused Weight 170.300368380580 BP Diastolic BP Location Tested BP Systolic BP Type 65 L arm 109 sitting Fetus Heart Rate Present A 144 Fetus Movement Comments pt. reports recent infection of flu b. sore abdomen. Recent upper respiratory infection, no worries. , otherwise no complaints Flowsheet Date 06/19/2023 Bates Score Blood Edema Fundus Height Fundus Units Glucose Ketones Leukocytes Nitrite Labor Signs Protein Cervic Dilation Cervic Effacement Cervic Station neg none 27 none trace Type Weight in lbs Pre/Post Dialysis Refused Weight 174.91869681473 BP Diastolic BP Location Tested BP Systolic BP Type 75 125 Fetus Heart Rate Present A 27 Fetus Movement A Yes Comments patient states that having h eadaches, BH contractions, nausea and vomiting. Pica - eating kcup coffee Flowsheet Date 07/04/2023 Bates Score Blood Edema Fundus Height Fundus Units Glucose Ketones Leukocytes Nitrite Labor Signs Protein Cervic Dilation Cervic Effacement Cervic Station neg none none trace Type Weight in lbs Pre/Post Dialysis Refused Weight 178.207549681082 BP Diastolic BP Location Tested BP Systolic BP Type 75 113 Fetus Heart Rate Present Fetus Movement A Yes Comments patient is having some BH co ntractions and pain. reviewed precautions, contractions not daily, has had 2 iron infusions, doing well, gct last week wnl, education done, f/u 2 weeks Flowsheet Date 07/25/2023 Bates Score Blood Edema Fundus Height Fundus Units Glucose Ketones Leukocytes Nitrite Labor Signs Protein Cervic Dilation Cervic Effacement Cervic Station none none neg Type Weight in lbs Pre/Post Dialysis Refused Weight 177.172670936901 BP Diastolic BP Location Tested BP Systolic BP Type 74 L arm 108 sitting Fetus Heart Rate Present A 145 Fetus Movement A Yes Comments no complaints, no problems, routine care, growth ultrasound for anemia Flowsheet Date 07/31/2023 Bates Score Blood Edema Fundus Height Fundus Units Glucose Ketones Leukocytes Nitrite Labor Signs Protein Cervic Dilation Cervic Effacement Cervic Station Type Weight in lbs Pre/Post Dialysis Refused BP Diastolic BP Location Tested BP Systolic BP Type Fetus Heart Rate Present Fetus Movement Comments Flowsheet Date 08/08/2023 Bates Score Blood Edema Fundus Height Fundus Units Glucose Ketones Leukocytes Nitrite Labor Signs Protein Cervic Dilation Cervic Effacement Cervic Station neg none none trace Type Weight in lbs Pre/Post Dialysis Refused Weight 177.929093443914 BP Diastolic BP Location Tested BP Systolic BP Type 68 L arm 100 sitting Fetus Heart Rate Present A 149 Fetus Movement A Yes Comments no complaints, no problems, routine care, normal growth ultrasound last week, pica has resolved after iron infusions Flowsheet Date 08/29/2023 Bates Score Blood Edema Fundus Height Fundus Units Glucose Ketones Leukocytes Nitrite Labor Signs Protein Cervic Dilation Cervic Effacement Cervic Station neg none 37 none trace Type Weight in lbs Pre/Post Dialysis Refused Weight 180.067882383581 BP Diastolic BP Location Tested BP Systolic BP Type 67 L arm 103 sitting Fetus Heart Rate Present A 145 Fetus Movement A Yes Comments Patient c/o of [place] and pressure in lower abdomen , group B strep performed, cervix is posterior, could not reach. Flowsheet Date 09/17/2023 Bates Score Blood Edema Fundus Height Fundus Units Glucose Ketones Leukocytes Nitrite Labor Signs Protein Cervic Dilation Cervic Effacement Cervic Station neg none none trace Type Weight in lbs Pre/Post Dialysis Refused Weight 182.203040529909 BP Diastolic BP Location Tested BP Systolic BP Type 66 L arm 109 sitting Fetus Heart Rate Present A 134 Fetus Movement A Yes Comments Patient c/o of some contract ions. Had one that lasted all night. instructed to go to labor and delivery at this happens again. good movement, no lof or vb Menstrual History Last Menstrual Date Menses Monthly On Bcp Conception Prior Menses Frequency Hcg Plus Date Menarche Onset Age 0812/25/2022 Genetic Screening And Infection History Question Response Note Mental Retardation/Autism false Patient's Age Will Be 35 Years Or Older At Estim ated Date of Delivery false Thalassemia (Setswana, Guyanese, Mediterranean, Or Background): MCV < 80 false Neural Tube Defect (Meningomyelocele, Spina Bifi da, Or Anencephaly) false Congenital Heart Defect false Down Syndrome false Kirby-Sachs (eg, Yazdanism, Cajun, Kosovan-Sierra Leonean) f alse Emily Disease false Sickle Cell Disease Or Trait () false Hemophilia Or Other Blood Disorders false Muscular Dystrophy false Cystic Fibrosis false [place]'s Chorea false Intellectual Disability/Autism false If Yes, Was Person Tested For Fragile X? false Other Inherited Genetic Or Chromosomal Disorder false Maternal Metabolic Disorder (eg, Type 1 Diabetes , PKU) false Patient Or Baby's Father Had A Child With Defects Not Listed Above false Recurrent Loss, Or A Stillbirth false Medications (including Suppl ements, Vitamins, Herbs, OTC Drugs), Illicit/Recreational Drugs, Alcohol false If Yes, Agent(s) And Strength/Dosage false Any Other Genetic History false Live With Someone With TB Or Exposed To TB false Patient Or Partner Has History Of Genital Herpes false Rash Or Viral Illness Since Last Menstrual Perio d false History Of STD, Gonorrhea, Chlamydia, HPV, Syphi lis true chlamy Other Infection History false History of HIV false History of Hepatitis false Prior GBS-infected child false Hemoglobinopathy Or Carrier false Other Structural Defect false Recent Travel History Outside of Country false Delivery Information Delivery Date Delivery Type Labor Anesthesia Weeks Gestation Incision Type Labor Labor Length Hrs Delivered By Post Complications Tubal Sterilization Discharge Date Comments curtis [facility] 40.3 false Micheal Kelly MD Anemia,Hi gh hemoglobi n A1c level,Pic a Discharge Information Feeding Method Contraceptive Method Maternal HG B and HCT Levels Ob Episode Information Episode Created Date Number of Fetuses Patient Bloodtype Patient rh Status Prepregnancy Weight lbs Domestic Partner Domestic Partner Phone Father Name Garde Manger Status 09/09/19 25 1 O Positive 182 Dominiq ue Cj OPEN Fetus Data First Name Last Name Admitted to NICU Weight (g) Sex Living Outcome Pediatric Complications Fetus ID Race Codes Race Delivery Type 10273 Problems Problem Notes Problem Name Start Date End Date Resolution Snomed Code Not e Late entry into care 09/08/2024 [id number] History of anemia 09/08/2024 387999013 High hemoglobin A1c level 09/15/2024 433392558 6.0 checking bs QID testing 39wk History of chlamydial infection 09/08/2024 417440477 Idris Calculation Initial Idris Date Initial Exam Date Initial Exam Provider Initial Ultrasound Date Last Menstrual Period Date Ultra Sound Weeks Gestation 09/22/2024 09/08/2024 [email or web address] 06/15/2024 25 Eighteen To Twenty Week Idris Update Ultra Sound Date Fundal Height At Umbil Quickening Date Ultra Sound Latest Weeks Gestation Final Idris Confirmed By Final Idris Confirmed Date Final Idris Date Ultra Sound Latest Days Gestation 0 09/23/19 25 0 Pre- Flowsheet Flowsheet Date 09/07/2024 Bates Score Blood Edema Fundus Height Fundus Units Glucose Ketones Leukocytes Nitrite Labor Signs Protein Cervic Dilation Cervic Effacement Cervic Station neg trace none trace Type Weight in lbs Pre/Post Dialysis Refused 186.869039445954 BP Diastolic BP Location Tested BP Systolic BP Type 73 110 Fetus Heart Rate Present Fetus Movement Comments pt has not received any pren atal care since visit in may, efw 75% AC 98% no hx gdm, reviewed education and precautions. hx of 3 vaginal births, uncomplicated. plan labs, urine today encouraged f/u in one week, +FM bpp 8/8 Flowsheet Date 09/15/2024 Bates Score Blood Edema Fundus Height Fundus Units Glucose Ketones Leukocytes Nitrite Labor Signs Protein Cervic Dilation Cervic Effacement Cervic Station Type Weight in lbs Pre/Post Dialysis Refused 187.247315591720 BP Diastolic BP Location Tested BP Systolic BP Type 79 L arm 114 sitting Fetus Heart Rate Present Fetus Movement A Yes Comments Flowsheet Date 09/15/2024 Bates Score Blood Edema Fundus Height Fundus Units Glucose Ketones Leukocytes Nitrite Labor Signs Protein Cervic Dilation Cervic Effacement Cervic Station neg none Type Weight in lbs Pre/Post Dialysis Refused 187.008611767516 BP Diastolic BP Location Tested BP Systolic BP Type 79 114 Fetus Heart Rate Present Fetus Movement A Yes Comments Patient is having pain, cont ractions, nausea and vomiting. discussed with pt us increased abd and increased hga1c, rec 39 week IOL this week, can increase risks, pt declined, would schedule for next week , scheduled for 09/21 at 1600, +FM bpp 02/04, if any changes in movement to hospital for evaluation Flowsheet Date 09/15/2024 Bates Score Blood Edema Fundus Height Fundus Units Glucose Ketones Leukocytes Nitrite Labor Signs Protein Cervic Dilation Cervic Effacement Cervic Station Type Weight in lbs Pre/Post Dialysis Refused BP Diastolic BP Location Tested BP Systolic BP Type Fetus Heart Rate Present Fetus Movement Comments Menstrual History Last Menstrual Date Menses Monthly On Bcp Conception Prior Menses Frequency Hcg Plus Date Menarche Onset Age Delivery Information Delivery Date Delivery Type Labor Anesthesia Weeks Gestation Incision Type Labor Labor Length Hrs Delivered By Post Complications Tubal Sterilization Discharge Date Comments Discharge Information Feeding Method Contraceptive Method Maternal HG B and HCT Levels Ob Episode Information Episode Created Date Number of Fetuses Patient Bloodtype Patient rh Status Prepregnancy Weight lbs Domestic Partner Domestic Partner Phone Father Name Garde Manger Status 03/27/20 23 1 CLOSED Fetus Data First Name Last Name Admitted to NICU Weight (g) Sex Living Outcome Pediatric Complications Fetus ID Race Codes Race Delivery Type 3175.14 4 M Full Term 82090 Vaginal Delivery Idris Calculation Initial Idris Date Initial Exam Date Initial Exam Provider Initial Ultrasound Date Last Menstrual Period Date Ultra Sound Weeks Gestation 0 Eighteen To Twenty Week Idris Update Ultra Sound Date Fundal Height At Umbil Quickening Date Ultra Sound Latest Weeks Gestation Final Idris Confirmed By Final Idris Confirmed Date Final Idris Date Ultra Sound Latest Days Gestation 0 0 Menstrual History Last Menstrual Date Menses Monthly On Bcp Conception Prior Menses Frequency Hcg Plus Date Menarche Onset Age Delivery Information Delivery Date Delivery Type Labor Anesthesia Weeks Gestation Incision Type Labor Labor Length Hrs Delivered By Post Complications Tubal Sterilization Discharge Date Comments 2 40 Messiah Discharge Information Feeding Method Contraceptive Method Maternal HG B and HCT Levels
--- OUTSIDE RECORDS SUMMARY | 2024-09-20 04:06 | XMS_ITS | Clinical Summary ---
Author Organization [facility] Care Team Providers Care Bilingual Manager Name Role Phone Unavailable Primary Care Provider Unavailabl e Social History Tobacco Use Types Packs/Day Years Used Date Smoking Tobacco: Never Assessed Comments Unknown Sex and Gender Information Value Date Recorded Sex Assigned at Not on file Legal Sex Female 12:37 PM LICSW Gender Identity Not on file Sexual Orientation Not on file Plan of Treatment Health Maintenance Due Date Last Done Comments Hepatitis C Virus (HCV) Screening 1997 Pap Smear 2018 Influenza Immunization (#1) 2023 02/01/2011 SARS-COV-2 Immunization (2023- season) 2023 Respiratory Syncytial Virus (RSV) Immunization (Adult) (1 - 1-dose 75+ series) 2072 Hepatitis B Immunization Completed 998, 1997, 1997 Pneumococcal Immunization Combined Aged Out 11/25/2000 No longer eligible based on patient's age to complete this topic Human Papillomavirus (HPV) Immunization Discontinued 01/10/2012, 02/01/2011, 11/17/2008 Meningococcal Immunization (ACWY) Completed 05/11/2015, 11/17/2008 DTaP/Tdap/Td Immunization Discontinued 2015, 11/17/2008, 10/30/2001, Additional history exists TdaP Immunization Completed 02/07/2016, 11/17/2008 Rotavirus Immunization Aged Out No lo nger eligible based on patient's age to complete this topic
--- OUTSIDE RECORDS SUMMARY | 2024-09-20 04:07 | XMS_ITS | Clinical Summary ---
Author Organization [facility] Address [address] [place] [address] Care Team Providers Care Pet Stylist Name Role Phone Trace Holland MD Primary Care Provider [phone] Source Comments [facility],non-owned Affiliates and Associated Physician Practices is amultiple site organization consisting of ambulatory clinics and hospital sitesin [place], [place], [place] and [place]. This disclosure is being madepursuant to the Care Everywhere program and may not contain all information available regarding this patient. Last updated 18.[facility] Allergies No known active allergies Medications * Be aware that medications may not be up to date on this document. Alwaysverify current medications with the patient. Humidifiers (COOL MIST HUMIDIFIER 1 GALLON) MISC Dispense 1 machine to use at bedside 1 Each 0 03/09/20 14 Active polyethylene glycol 3350 (MIRALAX) powder Take 17 g by mouth once daily 225 g 0 01/24/20 15 Active ondansetron (ZOFRAN) 4 MG tablet Take 1 Tab by mouth every 6 hours 40 Tab 2 02/21/20 16 Active metoclopramide (REGLAN) 10 MG tablet Take 1 Tab by mouth every 6 hours 40 Tab 2 02/21/20 16 Active prochlorperazin e (COMPAZINE) 25 MG suppository Insert 1 Suppository into the rectum every 12 hours as needed for Nausea/Vomiting 6 Suppository 02/21/20 16 Active Active Problems Patient Care Coordination No te Formatting of this note migh t be different from the original. [facility] 01/2016 Problem Noted Date Diagnosed Date Uterine size date discrepancy , third t rimester 02/11/2022 Biliary sludge determined by ultrasound 01/24/20 16 Overview (01/24/2016): Amylase: 65 Lipase: 28 echogenic intracardiac focus on u ltrasound 01/24/2016 Overview (01/24/2016): Right echogenic focus Placental abnormality 01/24/2016 Overview (01/24/2016): Few placental lakes noted on US Supervision of high-risk of young prim igravida 01/23/2016 Overview (01/24/2016): PNL: O+/I/?/- Ab: Neg GCT: HgbA1C: 5.5 HIV: NR GBS: Dating: LMP c/w 23 wk US H/H/Plt: 10.8/33.2/245 Hgb Elec: Negative UDS: Negative QS: Negative CF: Negative Pap: N/A Gc/Chl: Neg/Beg UCx: Breast/Bottle: Family Planning: Declines Ultrasound recheck of pyelectasis, antepar ela 01/23/2016 Overview (01/23/2016): EPDS score: Suspected abnormality affecting management of mother Immunizations Immunization Administration Dates Next Due INFLUENZA VACCINE, QUADR. (F LUZONE; FLULAVAL; FLUARIX; AFLURIA QUADRIVALENT; 6MO+), 0.5 ML (IIV4) 02/21/2016 TDAP (7yrs+) 02/21/2016 Social History Tobacco Use Types Packs/Day Years Used Date Smoking Tobacco: Never Alcohol Use Standard Drinks/Week Comments No 0 (1 standard drink = 0.6 oz pur e alcohol) Comments No Sex and Gender Information Value Date Recorded Sex Assigned at Not on file Legal Sex Female 4:21 PM CDT Gender Identity Not on file Sexual Orientation Not on file Last Filed Vital Signs Vital Sign Reading Time Taken Comments Blood Pressure 98/60 02/21/2016 2:20 PM CDT Pulse 98 02/21/2016 2:20 PM CDT Temperature 37 C (98.6 F) 01/23/2015 12:31 PM CDT Respiratory Rate 20 02/21/2016 2:20 PM CDT Oxygen Saturation 100% 03/09/2014 5:56 PM WINDER FIXER Inhaled Oxygen Concentration - - Weight 67.1 kg (148 lb) 02/21/2016 2:20 PM CDT Height 160 cm (5' 3) 02/21/2016 2:20 PM CDT Body Mass Index 26.22 02/21/2016 2:20 PM CDT Plan of Treatment Health Maintenance Due Date Last Done Comments PAP SMEAR 1997 HEPATITIS B VACCINE (1 of 3 - 19+ 3-dose series) 2016 COVID-19 VACCINE (2023-2 5 season) 2023 DEPRESSION SCREENING 04/28/2024 INFLUENZA VACCINE (Season Ended) 2024 02/21/2016, 02/01/2011 DTAP/TDAP/TD VACCINES (2 - T d or Tdap) 02/20/2026 02/21/2016 ZOSTER VACCINE (1 of 2) 2047 HIV SCREENING Completed 11/09/2015 HEPATITIS C SCREENING Completed 02/21/2016 , 11/09/2015, 11/09/2015 HIB VACCINE Aged Out No longer eligi ble based on patient's age to complete this topic HPV VACCINE Aged Out No longer eligi ble based on patient's age to complete this topic MENINGOCOCCAL (Group B) VACCINE SHARED DECISION-MAKING Aged Out No longer eligible based on patient's age to complete this topic MENINGOCOCCAL GROUPS A/C/Y/W VACCINE Aged Out No longer eligible b ased on patient's age to complete this topic PNEUMOCOCCAL VACCINE Aged Out No long er eligible based on patient's age to complete this topic Procedures Procedure Name Priority Date/Time Associated Diagnosis Comments HEPATITIS SCREEN ACUTE Routine 02/21/2016 3:41 PM CDT GLUCOSE CHALLENGE Routine 02/21/2016 3:3 2 PM CDT from Last 3 Months or Most Recently Relevant to Health Maintenance Results * HEPATITIS SCREEN ACUTE (02/21/2016 3:41 PM CDT) Pathologist [facility] [place] HAV Antibody IgM Non Reactive Non Reactive 02/21/2016 5:[address] [facility] HBsAg Non Reactive Non Reactive 02/21/2016 5:[address] [facility] HBc Antibody IgM Non Reactive Non Reactive 02/21/2016 5:[address] [facility] HCV Antibody Screen Non Reactive Non Reactive 02/21/2016 5:[address] [facility] HCV S/C Ratio 0.06 0.00 - 0.79 02/21/2016 5:[address] [facility] Comment: Mnfgkw-ng-gawsdg ratio (S/CO) <0.80: Non Reactive Blood BLOOD SPECIMEN / Unknown 02/21/2016 3:41 PM CDT 02/21/2016 3:[address] [facility] - 02/21/2016 5:01 PM CDT Non Reactive - Antibodies to Hepatitis C virus (HCV) were not detected, result does not exclude early acute HCV infection. Non Reactive - Antibodies to Hepatitis C virus (HCV) were not detected, result does not exclude early acute HCV infection. us Shelly Mars MD LAB - CHEMISTRY ORDERABLES nal Result Performing Organization Address [facility] Co de Phone Number [facility] [address] [place] [id number] * GLUCOSE CHALLENGE (02/21/2016 3:32 PM CDT) Pathologist [facility] [place] Glucose Challenge 130 64 - 140 mg/dL 02/21/2016 4:[address] [facility] Glucose Challenge Time 02/21/2016 4:[address] [facility] Blood BLOOD SPECIMEN / Unknown Venipuncture / Unknown 02/21/2016 3:32 PM CDT 02/21/2016 3:45 PM CDT us Shelly Mars MD LAB - CHEMISTRY ORDERABLES Fi nal Result Performing Organization Address City/[facility] Co de Phone Number [facility] [address] [place], [place] [id number] from Last 3 Months or Most Recently Relevant to Health Maintenance Insurance MEDICAID [facility] Care Teams Pet Stylist Relationship Specialty Start Date End Date Trace Holland [place] [address] [id number] PCP - General 02/14/22
--- OUTSIDE RECORDS SUMMARY | 2024-09-20 04:07 | XMS_ITS | Data Portability ---
[facility] Address [address] [place] [address] Care Team Providers Care Hot Wound [place] Production Supervisor Name Role Phone JUSTIN SAMUEL Cost Accounting Clerk Assessment Encounter Date Assessment Date Assessment LastModified by Organization Details LastModified Time 02/01/2022 02/01/2022 Ifrah Jacobo PA-S Not available 02/01/2022 09:48:03 Plan of Treatment Reminders Order Date Submit Date Provider Last Modified By Organization Details Last Modified Time Details Appointments None recorded . Lab vaginal pathogen s panel, REAL+prob e, vaginal fluid 2021 [place], [address], [address], [place], [address], 09:13:45 streptoc occus group B, culture, unspecif ied specimen 2021 [facility], 2022 [address], [address], [place], [address], 09:13:46 CBC w/ auto diff 2021 [facility], 2022 [address], [address], [place], [address], 09:13:46 urinalys is, dipstick 2021 [email or web address] In-Office Order, Internal Use Only DO Not Attach Compendium DO Not Attach Compendium, Do Not Delete/merge, [id number] 10:07:00 glucose toleranc e test, post-50G , 1-hour 2021 [facility], 2022 Ciro Moran, [address], [place], [address], 08:18:01 CBC w/ auto diff 2021 [facility], 2022 C[address] Moran, [address], [place], [address], 08:18:01 RPR (rapid plasma reagin), serum 2021 [facility], 2022 C[address] Moran, [address], [place], [address], 08:18:02 HIV 1 + 2, meaningf ul use set 2021 [facility], 2022 C[address] Moran, [address], [place], [address], 08:18:03 chlamydi a trachoma tis + neisseri a gonorrho eae + trichomo dang vaginali s DNA panel, REAL+prob e, unspecif ied specimen 2021 [facility], 2022 [address] Moran, [address], [place], [address], 20:08:00 chlamydi a trachoma tis + neisseri a gonorrho eae + trichomo dang vaginali s DNA panel, REAL+prob e, unspecif ied specimen 2021 [facility], 2022 [address], [address], [place], [address], 16:09:20 urinalys is, dipstick 2021 [email or web address] In-Office Order, Internal Use Only DO Not Attach Compendium DO Not Attach Compendium, Do Not Delete/merge, [id number] 16:39:33 aneuploi dy risk and X & Y analysis , chromoso me specific circulat ing cell free (CCF) DNA, maternal serum 2021 [place] [facility], 2022 [facility] , [address], [place], [address], 16:09:19 Referral None recorded . Procedures None recorded . Surgeries None recorded . Imaging US, obstetri c, biophysi joseph profile + non-stre ss test 2021 [facility], [address] [place] [address], [address], 12:44:37 US, doppler, umbilica l artery velocime try 2021 [facility], [address] [place] [address], [address], 12:44:37 US, obstetri c, 3rd trimeste r 2021 [facility], [address] [place] [address], [address], 12:44:37 Medication Orders Venofer 200 mg iron/10 mL intraven ous solution 2021 [facility], [address] [facility], [place], [address], 16:33:41 28 mg iron-800 mcg tablet 2021 [place] [id number], [address] [facility], [place], [place], [id number], 16:09:31 ferrous sulfate 325 mg (65 mg iron) tablet 2021 [facility][id number], [address], [place], [place], [id number], 16:09:30 ceftriax one 500 mg solution for injectio n 2021 [facility] #[id number], [address], [place], [place], [id number], 09:33:20 Patient TargetsNo targets recorded. Patient Instructions Encounter Date Encounter Id Patient Instructions Last Modified By Organization Details Last Modified Time 02/01/2022 [id number] counting your baby's kicks: care instructions Not available 02/01/2022 10:07:00 02/22/2022 [id number] High-risk OB? {{no* yes}} EDC consistent with LMP?: {{yes no* LMP unsure}} EDC confirmed with: {{LMP 1st trimester US 2nd trimester US* 3rd trimester US}} Problem list UTD: {{yes* no}} Vitals reviewed and addressed if abnormal: {{yes* no}} Labs: {{ordered* normal abnormal}} Plan for abnormal results documented: {{yes* no}} Anatomy scan: {{ordered schedul ed normal abnorma l abnormal, concerns for spine/renal abnormalties on folllowup appropriate and no additional followup per 02/11/22#}} GBS: {{will collect at 36+ weeks collected n egative positive* }} position confirmed vertex by US: {{yes* no}} TdaP: {{UTD* declined n ot given}} Flu vaccine: {{UTD* declined n ot given}} Covid vaccine: {{UTD declined* n ot given}} Delivery plan documented: {{yes no*}} Need for MFM or OB consult? {{no yes yes, MFM US, no additional followup#}} Complete assessment and plan for all identified problems: {{yes* no}} Cosigner Name: MD Kyle. Second Sign: Bharathi Llanos MD per note pt requesting water need to confirm [email or web address] Not available 02/28/2022 16:34:08 02/28/2022 [id number] High-risk OB? {{no* yes}} EDC consistent with LMP?: {{yes no* LMP unsure}} EDC confirmed with: {{LMP 1st trimester US 2nd trimester US* 3rd trimester US}} Problem list UTD: {{yes* no}} Vitals reviewed and addressed if abnormal: {{yes* no}} Labs: {{ordered normal abnormal abnormal , plans outlined#}} Plan for abnormal results documented: {{yes* no}} Anatomy scan: {{ordered schedul ed normal abnorma l abnormal- followup appropriate #}} GBS: {{will collect at 36+ weeks collected n egative positive* }} position confirmed vertex by US: {{yes* no}} TdaP: {{UTD* declined n ot given}} Flu vaccine: {{UTD* declined n ot given}} Covid vaccine: {{UTD declined* n ot given}} Delivery plan documented: {{yes no discusse d, but pending additional information #}} Need for MFM or OB consult? {{no* yes}} Complete assessment and plan for all identified problems: {{yes* no}} Cosigner Name: MD Kyle. 2nd signer, reviewed by oversight. agree with plan of care Lo Gupta MD [email or web address] Not available 03/01/2022 14:26:01 Reason for Referral None Reported. Results Created Date Observation Date Name Description Value Unit Range Abnormal Flag Note LastModifiedBy Organization Detail LastModifiedTime 11/28/19 22 12/01/2021 MATER NIT21 PLUS CORE gestation Single ton Not Available [facility] ([facility]) [address] [facility], [place], [address], 12/01/2021 16:09:19 11/28/19 22 12/01/2021 MATER NIT21 PLUS CORE fraction 7% Not Available [facility] ([facility]) [address] [facility], [place], [address], 12/01/2021 16:09:19 11/28/19 22 12/01/2021 MATER NIT21 PLUS CORE gestational age > or = 9W: Yes Not Available [facility] ([facility]) [address] [place], [address], 12/01/2021 16:09:19 11/28/19 22 12/01/2021 MATER NIT21 PLUS CORE test result Negati ve Not Available [facility] ([facility]) [address] [place], [address], 12/01/2021 16:09:19 11/28/19 22 12/01/2021 MATER NIT21 PLUS CORE 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 Clini joseph corre latio n is nisha do. Not Available [facility] ([facility]) [address] [place], [address], 12/01/2021 16:09:19 11/28/19 22 12/01/2021 MATER NIT21 PLUS CORE approved by Lily trent MD, PhD, [facility] tor, Se[place] nom Labor atori es Not Available [facility] ([facility]) [address] [facility], [place], [address], 12/01/2021 16:09:19 11/28/19 22 12/01/2021 MATER NIT21 PLUS CORE trisomy 21 (down syndrome) Negati ve Not Available [facility] ([facility]) [address] [place], [address], 12/01/2021 16:09:19 11/28/19 22 12/01/2021 MATER NIT21 PLUS CORE trisomy 18 (encarnacion syndrome) Negati ve Not Available [facility] ([facility]) [address] [place], [address], 12/01/2021 16:09:19 11/28/19 22 12/01/2021 MATER NIT21 PLUS CORE trisomy 13 (patau syndrome) Negati ve Not Available [facility] ([facility]) [address] [facility], [place], [address], 12/01/2021 16:09:19 11/28/19 22 12/01/2021 MATER NIT21 PLUS CORE sex Commen t Consi stent with Male Not Available [facility] ([facility]) [address] [facility], [place], [address], 12/01/2021 16:09:19 11/28/19 22 12/01/2021 MATER NIT21 PLUS CORE negative predictive value Note The Negat dilma Predi ctive Value (NPV) for triso my 21, 18, and 13 is great er than 99%. The NPV for SCA and ESS canno t be calcu lated as SCA and ESS are only repor curtis when an abnor malit y is detec curtsi. Not Available [facility] ([facility]) [address] [facility], [place], [address], 12/01/2021 16:09:19 11/28/19 22 12/01/2021 MATER NIT21 PLUS CORE positive predictive value N/A Not Available [facility] ([facility]) [address] [facility], [place], [address], 12/01/2021 16:09:19 11/28/19 22 12/01/2021 MATER NIT21 PLUS CORE about the test Commen t The Mater niT(R ) 21 PLUS labor atory -deve loped test (LDT) rekha zes circu latin g cell- free DNA from a mater nal blood sampl e. This test is used for scree gregorio purpo ses and not diagn ostic . Clini joseph corre latio n is recom rosie d. Valid ation data on twin pregn ancie s is limit ed and the abili ty of this test to detec t aneup loidy in highe r multi ple gesta tions has not yet been valid ated. Not Available [facility] ([facility]) [address] [facility], [place], [address], 12/01/2021 16:09:19 11/28/19 22 12/01/2021 MATER NIT21 PLUS CORE test method Commen t Circu latin g cell- free DNA was purif ied from the plasm a compo nent of mater nal blood . The extra cted DNA was then conve rted into a genom ic DNA gary ry for aneup loidy rekha sis of chrom osome s 21, 18, and 13 via next gener ation seque ncing .[1] Optio nal findi ngs based on the test order inclu de sex chrom osome aneup loidy (SCA) [2], and enhan aria seque ncing serie s (ESS) [3], which will only be repor curtis on as an addit ional findi ng when an abnor malit y is detec curtis. SCA testi ng inclu raad infor matio n on X and Y repre senta tion, while ESS testi ng inclu raad delet ions in selec curtis regio ns (22q, 15q, 11q, 8q, 5p, 4p, 1p) and triso my of chrom osome s 16 and 22. Not Available [facility] ([facility]) [address] [facility], [place], [address], 12/01/2021 16:09:19 11/28/19 22 12/01/2021 MATER NIT21 PLUS CORE performance Commen t The perfo rmanc e kat cteri stics of the Mater niT(R ) 21 PLUS labor atory -deve loped test (LDT) have been deter mined in a clini joseph valid ation study with pregn ant women at incre ased risk for chrom osoma l aneup loidy .[1-4 ] Not Available [facility] ([facility]) [address] [facility], [place], [address], 12/01/2021 16:09:19 11/28/19 22 12/01/2021 MATER NIT21 PLUS CORE performance characterist ics Note ----- ----- ----- ----- ----- ----- ----- ----- ----- ----- ----- ---- ! Sex ! Celeste roa: 99.4% ! !---- ----- ----- ----- ----- ----- ----- ----- ----- ----- ----- ---! ! Antony n (shayla irwin syndr ome) ! Est. Sens# ! Est. Spec ! !---- ----- ----- ----- ----- ----- ----- ----- ----- ----- ----- ---! ! Precious my 21 (Down Syndr ome) ! 99.1% ! 99.9% ! !---- ----- ----- ----- ----- ----- ----- ----- ----- ----- ----- ---! ! Precious my 18 (Eben pederson Syndr ome) ! >99.9 % ! 99.6% ! !---- ----- ----- ----- ----- ----- ----- ----- ----- ----- ----- ---! ! Precious my 13 (Pattrev u Syndr ome) ! 91.7% ! 99.7% ! !---- ----- ----- ----- ----- ----- ----- ----- ----- ----- ----- ---! ! Sex Chrom maribell vidales es## ! 96.2% ! 99.7% ! !---- ----- ----- ----- ----- ----- ----- ----- ----- ----- ----- ---! * As repor curtis in ISCA datab ase nstd3 7 [http s://w brannon.nc bi.nl .[facility] .gov/ dbvar /stud ies/n std37 / ] # Estim ated Sensi tivit y. Sensi tivit y estim ated acros s the obser leo size distr ibuti on of each syndr ome [per ISCA datab ase nstd3 7] and acros s the range of fract ions obser leo in routi ne clini joseph NIPT. Actua l sensi tivit y can also be influ enced by other facto rs such as the size of the event , total seque nce count s, ampli ficat ion bias, or seque nce bias. ## Singl eton gesta tion only. Not Available [facility] ([facility]) [address] [facility], [place], [address], 12/01/2021 16:09:19 11/28/19 22 12/01/2021 MATER NIT21 PLUS CORE limitations of the test Commen t While the resul ts of these tests are highl y relia ble, disco rdant resul ts, inclu ding inacc urate sex predi ction , may occur due to place ntal, mater nal, or mosai cism or neopl asm; vanis brie twin; prior mater nal organ trans plant ; or other cause s. These tests are scree gregorio tests and not diagn ostic ; they do not repla ce the accur acy and preci jesus of prena pablo diagn osis with CVS or amnio cente sis. A patie nt with a posit dilma test resul t shoul d be refer red for [facility] couns eling and offer ed invas dilma prena pablo diagn osis for confi rmati on of test resul ts.[5 ] The resul ts of this testi ng, inclu ding the benef its and limit ation s, shoul d be discu ssed with a quali fied healt hcare provi mirna. Pregn josephine manag ement decis ions, inclu ding termi natio n of the pregn josephine, shoul d not be based on the resul ts of these tests alone . The healt hcare provi mirna is respo nsibl e for the use of this infor matio n in the manag ement of their patie nt. Sex chrom osoma l aneup loidi es are not repor table for known multi ple gesta tions . A negat dilma resul t does not ensur e an unaff ected pregn josephine nor does it exclu de the possi bilit y of other chrom osoma l abnor malit ies or defec ts which are not a part of these tests . An uninf ormat dilma resul t may be repor curtis, the cause s of which may inclu de, but are not limit ed to, insuf ficie nt seque ncing cover age, noise or artif acts in the regio n, ampli ficat ion or seque ncing bias, or insuf ficie nt fract ion. These tests are not inten ded to ident edita pregn ancie s at risk for neura l tube defec ts or ventr al wall defec ts. Testi ng for whole chrom osome abnor malit ies (incl uding sex chrom osome s) and for subch romos omal abnor malit ies could lead to the poten tial disco very of both and mater nal genom ic abnor malit ies that could have major , minor , or no, clini joseph signi fican ce. Evalu ating the signi fican ce of a posit dilma or a non-r eport able resul t may invol ve both invas dilma testi ng and addit ional studi es on the mothe r. Such inves tigat ions may lead to a diagn osis of mater nal chrom osoma l or subch romos omal abnor malit ies, which on occas ion may be assoc iated with benig n or malig nant mater nal neopl asms. These tests may not accur ately ident edita tripl oidy, ulises aria rearr angem ents, or the preci se locat ion of subch romos omal dupli catio ns or delet ions; these may be detec curtis by prena pablo diagn osis with CVS or amnio cente sis. The abili ty to repor t resul ts may be impac curtis by mater nal BMI, mater nal weigh t, mater nal syste jai lupus eryth emato jose maria (SLE) and/o r by certa in pharm aceut ical agent s such as low molec ular weigh t hepar in (for examp le: Loven ox(R) , Xapar in(R) , Clexa ne(R) and Fragm in(R) ). Not Available [facility] ([facility]) [address] [facility] [address], [place], [address], 12/01/2021 16:09:19 11/28/19 22 12/01/2021 MATER NIT21 PLUS CORE note Lily Toledo [employer]. is a subsi diary of Labor atory Corpo ratio n of [employer], using the brand [employer]. This test was devel oped and its perfo rmanc e kat cteri stics deter mined by [employer]. It has not been clear ed or appro leo by the Food and Drug Admin istra tion. This labor atory is certi fied under the Clini joseph Labor atory Impro vemen t Amend ments (CLIA ) as quali fied to perfo rm high compl exity clini joseph labor atory testi ng and accre dited by the Orly saavedra of Ameri can Patho logis ts (CAP) . If there is futur e clini joseph need for addin g Mater niT GENOM E testi ng, this speci men will be avail able until term. [facility] sampl es will not be retai hamlet beyon d 60 days. [facility] patie nts will have to send a new sampl e for re-se quenc ing ([facility] Test Code: 40723 4). Not Available [facility] ([facility]) [address] [facility], [place], [address], 12/01/2021 16:09:19 11/28/19 22 12/01/2021 MATER NIT21 PLUS CORE references Lily t 1. Cuate SAAVEDRA, et al. [facility] Med. 2012; 14(3) :296- 305. 2. Blanca ANDERSON, et al. Maria L yao Diag. 2013; 33(6) :591- 597. 3. Garay C, et al. Clin Chem. 2015 Apr;6 1(4): 608-6 16. 4. Cuate SAAVEDRA, et al. [facility] Med. 2011; 13(11 ):913 -920. 5. ACOG/ SMFM Pract ice Bulle tin No. 226, Jan 2020. Not Available [facility] ([facility]) [address] [place], [address], 12/01/2021 16:09:19 11/28/19 22 12/01/2021 MATER NIT21 PLUS CORE pdf . Not Available [facility] ([facility]) [address] [place], [address], 12/01/2021 16:09:19 11/28/19 22 11/29/2021 CT, NG, TRICH VAG BY REAL chlamydia by REAL Negati ve negati ve Not Available [facility] ([facility]) [address] [place], [address], 12/01/2021 16:09:20 11/28/19 22 11/29/2021 CT, NG, TRICH VAG BY REAL gonococcus by REAL Positi ve negati ve abnormal Not Available [facility] ([facility]) [address] [place], [address], 12/01/2021 16:09:20 11/28/19 22 11/29/2021 CT, NG, TRICH VAG BY REAL trich vag by REAL Negati ve negati ve Not Available [facility] ([facility]) [address] [place], [address], 12/01/2021 16:09:20 11/28/19 22 11/27/2021 urina lysis , dipst ick Leukocytes Negati ve Not Available In-Office Order Internal Use Only DO Not Attach Compendium DO Not Attach Compendium, Do Not Delete/merge, [id number] 11/27/2021 15:54:27 11/28/19 22 11/27/2021 urina lysis , dipst ick Nitrite negati ve Not Available In-Office Order Internal Use Only DO Not Attach Compendium DO Not Attach Compendium, Do Not Delete/merge, 11/27/2021 15:54:27 11/28/19 22 11/27/2021 urina lysis , dipst ick Urobilinogen .2 Not Available In-Of fice Order Internal Use Only DO Not Attach Compendium DO Not Attach Compendium, Do Not Delete/merge, 11/27/2021 15:54:27 11/28/19 22 11/27/2021 urina lysis , dipst ick Protein Negati ve Not Available In-Office Order Internal Use Only DO Not Attach Compendium DO Not Attach Compendium, Do Not Delete/merge, 11/27/2021 15:54:27 11/28/19 22 11/27/2021 urina lysis , dipst ick pH 7.0 Not Available In-Office Order Internal Use Only DO Not Attach Compendium DO Not Attach Compendium, Do Not Delete/merge, 11/27/2021 15:54:27 11/28/19 22 11/27/2021 urina lysis , dipst ick Blood Negati ve Not Available In-Office Order Internal Use Only DO Not Attach Compendium DO Not Attach Compendium, Do Not Delete/merge, 11/27/2021 15:54:27 11/28/19 22 11/27/2021 urina lysis , dipst ick Specific [place] 1.020 Not Available In-Off ice Order Internal Use Only DO Not Attach Compendium DO Not Attach Compendium, Do Not Delete/merge, 11/27/2021 15:54:27 11/28/19 22 11/27/2021 urina lysis , dipst ick Ketone Trace Not Available In-Office Order Internal Use Only DO Not Attach Compendium DO Not Attach Compendium, Do Not Delete/merge, 11/27/2021 15:54:27 11/28/19 22 11/27/2021 urina lysis , dipst ick Bilirubin Negati ve Not Available In-Office Order Internal Use Only DO Not Attach Compendium DO Not Attach Compendium, Do Not Delete/merge, [id number] 11/27/2021 15:54:27 11/28/19 22 11/27/2021 urina lysis , dipst ick Glucose Negati ve Not Available In-Office Order Internal Use Only DO Not Attach Compendium DO Not Attach Compendium, Do Not Delete/merge, [id number] 11/27/2021 15:54:27 02/02/20 22 02/02/2022 GEST. DIABE MORENO 1-HR SCREE N gestational diabetes screen 141 mg/dL 65-139 above high normal Accor ding to ADA, a gluco se thres hold of >139 mg/dL after 50-gr am load ident ifies appro ximat medardo 80% of women with gesta radha l diabe moreno melli tus, while the sensi tivit y is furth er incre ased to appro ximat medardo 90% by a thres hold of >129 mg/dL . > Eff ectiv e Octob er 2021 Gluco se low end refer ence inter charley will be flowers ing from 65 to 70 mg/dL . Not Available [facility] ([facility]) [address] [place], [address], 02/02/2022 08:18:01 02/02/20 22 02/02/2022 CBC WITH DIFFE RENTI AL/PL ATELE T WBC 7.6 x10e3 /uL 3.4-10 .8 Not Available [facility] ([facility]) [address] [place], [address], 02/02/2022 08:18:01 02/02/20 22 02/02/2022 CBC WITH DIFFE RENTI AL/PL ATELE T RBC 3.72 x10e6 /uL 3.77-5 .28 below low normal Not Available [facility] ([facility]) [address] [place], [address], 02/02/2022 08:18:01 02/02/20 22 02/02/2022 CBC WITH DIFFE RENTI AL/PL ATELE T hemoglobin 9.0 g/dL 11.1-1 5.9 below low normal Not Available [facility] ([facility]) [address] [place], [address], 02/02/2022 08:18:01 02/02/20 22 02/02/2022 CBC WITH DIFFE RENTI AL/PL ATELE T hematocrit 28.8 % 34.0-4 6.6 below low normal Not Available [facility] ([facility]) [address] [facility], [place], [address], 02/02/2022 08:18:01 02/02/2002/02/2022 CBC WITH DIFFE RENTI AL/PL ATELE T MCV 77 fL 79-97 below low normal Not Available [facility] ([facility]) [address] [facility], [place], [address], 02/02/2022 08:18:01 02/02/20 22 02/02/2022 CBC WITH DIFFE RENTI AL/PL ATELE T MCH 24.2 pg 26.6-3 3.0 below low normal Not Available [facility] ([facility]) [address] [place], [address], 02/02/2022 08:18:01 02/02/20 22 02/02/2022 CBC WITH DIFFE RENTI AL/PL ATELE T MCHC 31.3 g/dL 31.5-3 5.7 below low normal Not Available [facility] ([facility]) [address] [place], [address], 02/02/2022 08:18:01 02/02/20 22 02/02/2022 CBC WITH DIFFE RENTI AL/PL ATELE T RDW 14.1 % 11.7-1 5.4 Not Available [facility] ([facility]) [address] [facility], [place], [address], 02/02/2022 08:18:01 02/02/20 22 02/02/2022 CBC WITH DIFFE RENTI AL/PL ATELE T platelets 256 x10e3 /uL 150-45 0 Not Available [facility] ([facility]) [address] [facility], [place], [address], 02/02/2022 08:18:01 02/02/20 22 02/02/2022 CBC WITH DIFFE RENTI AL/PL ATELE T neutrophils 69 % notest ab. Not Available [facility] ([facility]) [address] [facility], [place], [address], 02/02/2022 08:18:01 02/02/20 22 02/02/2022 CBC WITH DIFFE RENTI AL/PL ATELE T lymphs 22 % notest ab. Not Available [facility] ([facility]) [address] [facility], [place], [address], 02/02/2022 08:18:01 02/02/20 22 02/02/2022 CBC WITH DIFFE RENTI AL/PL ATELE T monocytes 7 % notest ab. Not Available [facility] ([facility]) [address] [facility], [place], [address], 02/02/2022 08:18:01 02/02/20 22 02/02/2022 CBC WITH DIFFE RENTI AL/PL ATELE T eos 1 % notest ab. Not Available [facility] ([facility]) [address] [facility], [place], [address], 02/02/2022 08:18:01 02/02/20 22 02/02/2022 CBC WITH DIFFE RENTI AL/PL ATELE T basos 0 % notest ab. Not Available [facility] ([facility]) [address] [facility], [place], [address], 02/02/2022 08:18:01 02/02/20 22 02/02/2022 CBC WITH DIFFE RENTI AL/PL ATELE T neutrophils (absolute) 5.2 x10e3 /uL 1.4-7. 0 Not Available [facility] ([facility]) [address] [facility], [place], [address], 02/02/2022 08:18:01 02/02/20 22 02/02/2022 CBC WITH DIFFE RENTI AL/PL ATELE T lymphs (absolute) 1.7 x10e3 /uL 0.7-3. 1 Not Available [facility] ([facility]) [address] [facility] [address], [place], [address], 02/02/2022 08:18:01 02/02/20 22 02/02/2022 CBC WITH DIFFE RENTI AL/PL ATELE T monocytes(ab solute) 0.5 x10e3 /uL 0.1-0. 9 Not Available [facility] ([facility]) [address] [facility], [place], [address], 02/02/2022 08:18:01 02/02/20 22 02/02/2022 CBC WITH DIFFE RENTI AL/PL ATELE T eos (absolute) 0.0 x10e3 /uL 0.0-0. 4 Not Available [facility] ([facility]) [address] [facility], [place], [address], 02/02/2022 08:18:01 02/02/20 22 02/02/2022 CBC WITH DIFFE RENTI AL/PL ATELE T baso (absolute) 0.0 x10e3 /uL 0.0-0. 2 Not Available [facility] ([facility]) [address] [facility], [place], [address], 02/02/2022 08:18:01 02/02/20 22 02/02/2022 CBC WITH DIFFE RENTI AL/PL ATELE T immature granulocytes 1 % notest ab. Not Available [facility] ([facility]) [address] [facility], [place], [address], 02/02/2022 08:18:01 02/02/20 22 02/02/2022 CBC WITH DIFFE RENTI AL/PL ATELE T immature grans (abs) 0.1 x10e3 /uL 0.0-0. 1 Not Available [facility] ([facility]) [address] [place], [address], 02/02/2022 08:18:01 02/02/20 22 02/02/2022 RPR, RFX QN RPR/C ONFIR M TP RPR Non Reacti ve nonrea ctive Not Available [facility] ([facility]) [address] [facility], [place], [address], 02/02/2022 08:18:02 02/02/2002/02/2022 HIV AB/P2 4 AG WITH REFLE X HIV Ab/P24 Ag screen Non Reacti ve nonrea ctive HIV Negat dilma HIV-1 /HIV- 2 antib odies and HIV-1 p24 antig en were NOT detec curtis. There is no labor atory evide nce of HIV infec tion. Not Available [facility] ([facility]) [address] [place], [address], 02/02/2022 08:18:02 02/02/2002/04/2022 CT, NG, TRICH VAG BY REAL chlamydia by REAL Negati ve negati ve Not Available [facility] ([facility]) [address] [place], [address], 02/04/2022 20:08:00 02/02/20 22 02/04/2022 CT, NG, TRICH VAG BY REAL gonococcus by REAL Negati ve negati ve Not Available [facility] ([facility]) [address] [place], [address], 02/04/2022 20:08:00 02/02/20 22 02/04/2022 CT, NG, TRICH VAG BY REAL trich vag by REAL Positi ve negati ve abnormal Not Available [facility] ([facility]) [address] [place], [address], 02/04/2022 20:08:00 02/02/20 22 02/01/2022 urina lysis , dipst ick Leukocytes Trace Not Available In-Offi ce Order Internal Use Only DO Not Attach Compendium DO Not Attach Compendium, Do Not Delete/merge, [id number] 02/01/2022 09:23:46 02/02/20 22 02/01/2022 urina lysis , dipst ick Nitrite negati ve Not Available In-Office Order Internal Use Only DO Not Attach Compendium DO Not Attach Compendium, Do Not Delete/merge, [id number] 02/01/2022 09:23:46 02/02/20 22 02/01/2022 urina lysis , dipst ick Urobilinogen .2 Not Available In-Of fice Order Internal Use Only DO Not Attach Compendium DO Not Attach Compendium, Do Not Delete/merge, [id number] 02/01/2022 09:23:46 02/02/20 22 02/01/2022 urina lysis , dipst ick Protein Negati ve Not Available In-Office Order Internal Use Only DO Not Attach Compendium DO Not Attach Compendium, Do Not Delete/merge, [id number] 02/01/2022 09:23:46 02/02/20 22 02/01/2022 urina lysis , dipst ick pH 8.5 Not Available In-Office Order Internal Use Only DO Not Attach Compendium DO Not Attach Compendium, Do Not Delete/merge, [id number] 02/01/2022 09:23:46 02/02/20 22 02/01/2022 urina lysis , dipst ick Blood Negati ve Not Available In-Office Order Internal Use Only DO Not Attach Compendium DO Not Attach Compendium, Do Not Delete/merge, [id number] 02/01/2022 09:23:46 02/02/20 22 02/01/2022 urina lysis , dipst ick Specific [place] 1.020 Not Available In-Off ice Order Internal Use Only DO Not Attach Compendium DO Not Attach Compendium, Do Not Delete/merge, [id number] 02/01/2022 09:23:46 02/02/20 22 02/01/2022 urina lysis , dipst ick Ketone Negati ve Not Available In-Office Order Internal Use Only DO Not Attach Compendium DO Not Attach Compendium, Do Not Delete/merge, [id number] 02/01/2022 09:23:46 02/02/20 22 02/01/2022 urina lysis , dipst ick Bilirubin Negati ve Not Available In-Office Order Internal Use Only DO Not Attach Compendium DO Not Attach Compendium, Do Not Delete/merge, [id number] 02/01/2022 09:23:46 02/02/20 22 02/01/2022 urina lysis , dipst ick Glucose Negati ve Not Available In-Office Order Internal Use Only DO Not Attach Compendium DO Not Attach Compendium, Do Not Delete/merge, [id number] 02/01/2022 09:23:46 02/09/20 22 02/08/2022 GESTA RADHA L 3 HOUR GTT-N DDGC note: Commen t Diagn osis of gesta radha l diabe moreno requi res that two or more high thres holds are excee ded. The silvana ance test is based on a 100 gm oral gluco se chall enge at 24 - 28 weeks of gesta tion. Not Available [facility] ([facility]) [address] [place], [address], 02/09/2022 10:37:50 02/09/20 22 02/09/2022 GESTA RADHA L 3 HOUR GTT-N DDGC glucose - fasting 80 mg/dL 65-104 Not Available [facility] ([facility]) [address] [place], [address], 02/09/2022 10:37:50 02/09/20 22 02/09/2022 GESTA RADHA L 3 HOUR GTT-N DDGC glucose - 1 hour 132 mg/dL 65-189 Not Available [facility] ([facility]) [address] [place], [address], 02/09/2022 10:37:50 02/09/20 22 02/09/2022 GESTA RADHA L 3 HOUR GTT-N DDGC glucose - 2 hour 107 mg/dL 65-164 Not Available [facility] ([facility]) [address] [facility], [place], [address], 02/09/2022 10:37:50 02/09/2002/09/2022 GESTA RADHA L 3 HOUR GTT-N DDGC glucose - 3 hour 100 mg/dL 65-144 Not Available [facility] ([facility]) [address] [facility], [place], [address], 02/09/2022 10:37:50 02/23/2002/25/2022 NUSWA B VAGIN ITIS PLUS (VG+) atopobium vaginae Low - 0 score Not Available [facility] ([facility]) [address] [facility], [place], [address], 02/27/2022 09:13:45 02/23/2002/25/2022 NUSWA B VAGIN ITIS PLUS (VG+) bvab 2 Low - 0 score Not Available [facility] ([facility]) [address] [facility], [place], [address], 02/27/2022 09:13:45 02/23/2002/25/2022 NUSWA B VAGIN ITIS PLUS (VG+) megasphaera 1 Low - 0 score Calcu late total score by kenneth turner the 3 indiv idual bacte rial vagin osis (BV) marke r score s toget her. Total score is inter prete d as follo ws: Total score 0-1: Indic ates the absen ce of BV. Total score 2: Indet ermin ate for BV. Addit ional clini joseph data shoul d be evalu ated to estab juni a diagn osis. Total score 3-6: Indic ates the prese nce of BV. This test was devel oped and its perfo rmanc e kat cteri stics deter mined by [facility]. It has not been clear ed or appro leo by the Food and Drug Admin istra tion. Not Available [facility] ([facility]) [address] [facility], [place], [address], 02/27/2022 09:13:45 02/23/2002/25/2022 NUA B VAGIN ITIS PLUS (VG+) azalia albicans, REAL Negati ve negati ve Not Available [facility] ([facility]) [address] [facility], [place], [address], 02/27/2022 09:13:45 02/23/2002/25/2022 NUA B VAGIN ITIS PLUS (VG+) azalia glabrata, REAL Negati ve negati ve Not Available [facility] ([facility]) [address] [facility], [place], [address], 02/27/2022 09:13:45 02/23/2002/25/2022 NUA B VAGIN ITIS PLUS (VG+) trich vag by REAL Negati ve negati ve Not Available [facility] ([facility]) [address] [facility], [place], [address], 02/27/2022 09:13:45 02/23/2002/25/2022 NUA B VAGIN ITIS PLUS (VG+) chlamydia trachomatis, REAL Negati ve negati ve Not Available [facility] ([facility]) [address] [facility], [place], [address], 02/27/2022 09:13:45 02/23/2002/25/2022 NUA B VAGIN ITIS PLUS (VG+) neisseria gonorrhoeae, REAL Negati ve negati ve Not Available [facility] ([facility]) [address] [facility], [place], [address], 02/27/2022 09:13:45 02/23/2002/27/2022 STREP GP B CULTU RE strep gp B culture Positi ve negati ve abnormal Cente rs for Disea se Contr ol and Preve ntion (CDC) and Ameri can Congr ess of Obste trici ans and Gynec ologi sts (ACOG ) guide lines for preve ntion of perin atal group B strep tococ joseph (GBS) disea se speci fy co-co llect ion of a vagin al and recta l swab speci men to maxim ize sensi tivit y of GBS detec tion. Per the CDC and ACOG, swabb ing both the lower vagin a and rectu m subst antia lly incre ases the yield of detec tion neelam red with sampl ing the vagin a alone . Penic illin G, ampic illin , or cefaz trang are indic ated for intra partu m proph ylaxi s of perin atal GBS colon izati on. Refle x susce ptibi lity testi ng shoul d be perfo rmed prior to use of clind amyci n only on GBS isola moreno from penic illin -brent rgic women who are consi dered a high risk for anaph ylaxi s. Treat ment with vanco mycin witho ut addit ional testi ng is warra nted if resis tance to clind amyci n is noted . Not Available [facility] ([facility]) [address] [place], [address], 02/27/2022 09:13:46 02/23/20 22 02/23/2022 CBC WITH DIFFE RENTI AL/PL ATELE T WBC 11.3 x10e3 /uL 3.4-10 .8 above high normal Not Available [facility] ([facility]) [address] [place], [address], 02/27/2022 09:13:46 02/23/20 22 02/23/2022 CBC WITH DIFFE RENTI AL/PL ATELE T RBC 3.76 x10e6 /uL 3.77-5 .28 below low normal Not Available [facility] ([facility]) [address] [place], [address], 02/27/2022 09:13:46 02/23/20 22 02/23/2022 CBC WITH DIFFE RENTI AL/PL ATELE T hemoglobin 8.7 g/dL 11.1-1 5.9 below low normal Not Available [facility] ([facility]) [address] [place], [address], 02/27/2022 09:13:46 02/23/20 22 02/23/2022 CBC WITH DIFFE RENTI AL/PL ATELE T hematocrit 27.6 % 34.0-4 6.6 below low normal Not Available [facility] ([facility]) [address] [place], [address], 02/27/2022 09:13:46 02/23/2002/23/2022 CBC WITH DIFFE RENTI AL/PL ATELE T MCV 73 fL 79-97 below low normal Not Available [facility] ([facility]) [address] [place], [address], 02/27/2022 09:13:46 02/23/20 22 02/23/2022 CBC WITH DIFFE RENTI AL/PL ATELE T MCH 23.1 pg 26.6-3 3.0 below low normal Not Available [facility] ([facility]) [address] [place], [address], 02/27/2022 09:13:46 02/23/2002/23/2022 CBC WITH DIFFE RENTI AL/PL ATELE T MCHC 31.5 g/dL 31.5-3 5.7 Not Available [facility] ([facility]) [address] [place], [address], 02/27/2022 09:13:46 02/23/20 22 02/23/2022 CBC WITH DIFFE RENTI AL/PL ATELE T RDW 15.7 % 11.7-1 5.4 above high normal Not Available [facility] ([facility]) [address] [place], [address], 02/27/2022 09:13:46 02/23/20 22 02/23/2022 CBC WITH DIFFE RENTI AL/PL ATELE T platelets 260 x10e3 /uL 150-45 0 Not Available [facility] ([facility]) [address] [facility], [place], [address], 02/27/2022 09:13:46 02/23/20 22 02/23/2022 CBC WITH DIFFE RENTI AL/PL ATELE T neutrophils 67 % notest ab. Not Available [facility] ([facility]) [address] [facility], [place], [address], 02/27/2022 09:13:46 02/23/20 22 02/23/2022 CBC WITH DIFFE RENTI AL/PL ATELE T lymphs 23 % notest ab. Not Available [facility] ([facility]) [address] [facility], [place], [address], 02/27/2022 09:13:46 02/23/20 22 02/23/2022 CBC WITH DIFFE RENTI AL/PL ATELE T monocytes 8 % notest ab. Not Available [facility] ([facility]) [address] [facility], [place], [address], 02/27/2022 09:13:46 02/23/20 22 02/23/2022 CBC WITH DIFFE RENTI AL/PL ATELE T eos 1 % notest ab. Not Available [facility] ([facility]) [address] [facility], [place], [address], 02/27/2022 09:13:46 02/23/20 22 02/23/2022 CBC WITH DIFFE RENTI AL/PL ATELE T basos 0 % notest ab. Not Available [facility] ([facility]) [address] [facility], [place], [address], 02/27/2022 09:13:46 02/23/20 22 02/23/2022 CBC WITH DIFFE RENTI AL/PL ATELE T neutrophils (absolute) 7.6 x10e3 /uL 1.4-7. 0 above high normal Not Available [facility] ([facility]) [address] [facility], [place], [address], 02/27/2022 09:13:46 02/23/20 22 02/23/2022 CBC WITH DIFFE RENTI AL/PL ATELE T lymphs (absolute) 2.6 x10e3 /uL 0.7-3. 1 Not Available [facility] ([facility]) [address] [facility], [place], [address], 02/27/2022 09:13:46 02/23/20 22 02/23/2022 CBC WITH DIFFE RENTI AL/PL ATELE T monocytes(ab solute) 0.9 x10e3 /uL 0.1-0. 9 Not Available [facility] ([facility]) [address] [facility], [place], [address], 02/27/2022 09:13:46 02/23/20 22 02/23/2022 CBC WITH DIFFE RENTI AL/PL ATELE T eos (absolute) 0.1 x10e3 /uL 0.0-0. 4 Not Available [facility] ([facility]) [address] [facility], [place], [address], 02/27/2022 09:13:46 02/23/20 22 02/23/2022 CBC WITH DIFFE RENTI AL/PL ATELE T baso (absolute) 0.0 x10e3 /uL 0.0-0. 2 Not Available [facility] ([facility]) [address] [facility], [place], [address], 02/27/2022 09:13:46 02/23/20 22 02/23/2022 CBC WITH DIFFE RENTI AL/PL ATELE T immature granulocytes 1 % notest ab. Not Available [facility] ([facility]) [address] [facility], [place], [address], 02/27/2022 09:13:46 10/02/23/2022 CBC WITH DIFFE RENTI AL/PL ATELE T immature grans (abs) 0.1 x10e3 /uL 0.0-0. 1 Not Available [facility] ([facility]) [address] [facility], [place], [address], 02/27/2022 09:13:46 11/29/19 22 11/27/2021 US, obste tric, 1st trime ster No observ ation record ed. [facility] ([facility]) [address] [place], [address], 11/28/2021 10:19:38 12/05/19 22 12/04/2021 US, obste tric, mater nal evalu ation + anato my No observ ation record ed. [facility] [address] [facility], [place], [address], 12/04/2021 17:06:06 02/12/20 22 02/11/2022 US, obste tric, mater nal evalu ation + anato my No observ ation record ed. [facility] [address] [facility] [address], [place], [address], 02/12/2022 11:31:55 Result Notes None recorded. Problems Name Problem SNOMED Code Status Onset Date Resolution Date Notes Provider Name and Address Organization Details Recorded Time Pregnanc y 35259526 Completed 202103/28/2022 Aparna Bah MD Attn: Accounting ,[address] [facility], [place], [address] , [facility] 2 09:55:23 Chlamydi al infectio n [id number] Active 2021 MARGARITA 11/27/21 Maribell Carranza MD Attn: Accounting ,[address] [facility], [place], [address] , [facility] 3 12:34:40 Chlamydi al infectio n [id number] Completed 2021 MARGARITA 11/27/21 Maribell Carranza MD Attn: Accounting ,[address] [facility], [place], [place], [address] [place] [address] , [place] - [facility] 3 12:34:40 Maternal gonorrhe a during pregnanc y [id number] 9108 Completed 2021 MARGARITA 02/01/22 Maribell Carranza MD Attn: Accounting ,[address] [facility], [place], [place], [address] [place] [address] , [place] [facility] 3 12:34:40 Maternal gonorrhe a during pregnanc y 70633060665 9108 Active 2021 MARGARITA 02/01/22 Maribell Carranza MD Attn: Accounting ,[address] [facility], [place], [place], [address] [place] [address] , [place] - [facility] 3 12:34:40 History of sexually transmit curtis disease 010336904 Active 2021 TALITA PULIDO Attn: Accounting ,[address] [facility], [place], [place], [address] [place] [address] , [place] - [facility] 2 09:54:40 Insuffic ient care [id number] 09 Completed 2021 Maribell Carranza MD Attn: Accounting ,[address] [facility], [place], [place], [address] [place] [address] , [place] - [facility] 3 12:34:40 Insuffic ient care 45664342309 09 Active 2021 Maribell Carranza MD Attn: Accounting ,[address] 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, [place], [address] , [place] [facility] 3 12:34:40 Group B Streptoc occus carrier [id number] 03 Active 2021 Maribell Carranza MD Attn: Accounting ,[address] [facility], [place], [address] , [place] [facility] 3 12:34:40 Overweig ht 280745907 Active Nohemy Salazar [place] null, [place] [facility] 6 12:39:28 Acne vulgaris 42565646 Active Nohemy Sal[place] [facility] 6 12:39:28 Anemia of pregnanc y 33028891 Active [place] Lazar [place] [facility] 7 12:38:46 Anemia of pregnanc y 65604105 Completed [place] [facility] 7 12:38:46 Placenta l abnormal ity, antepart um 19588468785 1 Active [place] [facility] 12:38:46 Placenta l abnormal ity, antepart um 61191829026 1 Completed [place] [facility] 7 12:38:46 Ultrasou nd scan abnormal 732127132 Active [place] [facility] 12:38:46 Ultrasou nd scan abnormal 098334691 Completed [place] [facility] 12:38:46 Vomiting of pregnanc y 75618766 Active [place] [facility] 12:38:46 Vomiting of pregnanc y 86151266 Completed [place] [facility] 12:38:46 Epistaxi s Active [place] [facility] 12:38:46 Epistaxi s Completed [place] [facility] 12:38:46 Anemia 446767839 [place] [facility] 12:38:46 Anemia 453867809 Completed a[place] Lazar [place] [facility] 12:38:46 Biliary sludge 80976650 [place] [facility] 12:38:46 Biliary sludge 43352449 Completed [place] [facility] 12:38:46 Problem Notes None recorded. Procedures Surgical History Date Name Laterality Status Provider Name and Address Organization Details Recorded Time 09/07/2021 Date of Last Pap Smear completed Marianna Salmeron [place] [facility] 09/07/2021 08:39:58 Imaging Results Imaging Date Name Status LastModified by Organiz ation Details LastModified Time 11/27/2021 US, obstetric, 1st trimester completed [facility] ([facility]) [address] [place], [address], 11/28/2021 10:19:38 12/04/2021 US, obstetric, maternal evaluation + anatomy completed [facility] [address] [facility], [place], [address], 12/04/2021 17:06:06 02/11/2022 US, obstetric, maternal evaluation + anatomy completed [facility] [address] [facility] [address], [place], [address], 02/12/2022 11:31:55 Procedure Notes None recorded. Medical Equipment None Reported. Allergies No known drug allergies Medications Name Sig Start Date Stop Date Status Note LastModified by Organization Details LastModified Time Vitamin C 500 mg tablet Take 1 tablet every 12 hours by oral route. 04/09 completed Not Available Not Available Not Available Doc-Q-Lace 100 mg capsule Take 1 capsule twice a day by oral route. 04/09 completed Not Available Not Available Not Available metronidazo le 500 mg tablet TAKE 1 TABLET BY MOUTH TWICE A DAY FOR 7 DAYS active Not Available Not Available No t Available ciprofloxac in 500 mg tablet 04/09 completed Not Available Not Available Not Available Vitamin tablet Take 1 tablet every day by oral route as directed. 2021 active Not Available Not Available Not Avai lable metoclopram maria isabel 5 mg tablet Take 1 tablet as needed by oral route. 04/09 completed Not Available Not Available Not Available prochlorper azine 25 mg rectal suppository 04/09 completed Not Available Not Available Not Available cephalexin 500 mg capsule TAKE 1 CAPSULE BY MOUTH EVERY 6 HOURS FOR 7 DAYS 11/27 completed Not Available Not Available Not Available ferrous sulfate 325 mg (65 mg iron) tablet Take 1 tablet every day by oral route. active Not Available Not Available No t Available ranitidine 150 mg tablet Take 1 tablet twice a day by oral route. 04/09 completed Not Available Not Available Not Available promethazin e 25 mg tablet Take 1 tablet 3 times a day by oral route as needed. 2021 active Not Available Not Available Not Avai lable ceftriaxone 500 mg solution for injection Take 500 mg by injection route. 02/01 completed Not Available Not Available Not Available ibuprofen 600 mg tablet active Not Available Not Available Not Available polyethylen e glycol 3350 17 gram/dose oral powder 04/09 completed Not Available Not Available Not Available ondansetron 4 mg disintegrat ing tablet 04/09 completed Not Available Not Available Not Available cefdinir 300 mg capsule 04/09 completed Not Available Not Available Not Available metoclopram maria isabel 10 mg tablet 04/09 completed Not Available Not Available Not Available azithromyci n 500 mg tablet TAKE 2 TABLETS BY MOUTH 1 TIME 11/27 completed Not Available Not Available Not Available Venofer 200 mg iron/10 mL intravenous solution Inject 200 mg by intraveno us route. 2021 active Not Available Not Available Not Avai lable 28 mg iron-800 mcg tablet Take 1 tablet by oral route. 2021 active Not Available Not Available Not Avai lable BP 5 % topical gel APPLY TO THE AFFECTED AREA(S) BY TOPICAL ROUTE ONCE DAILY 04/09 completed Not Available Not Available Not Available Vitals Date Recorded Body height Body mass index (BMI) Systolic blood pressure Diastolic blood pressure Provider Name and Address Organization Details Last Updated DateTime 11/27/2021 160.02 cm 28 kg/m2 108 mm[Hg] 62 mm[Hg] Aysha Gaspar MA [facility] 11/27/2021 15:45:46 Date Recorded Body weight Provider Name an d Address Organization Details Last Updated DateTime 11/27/2021 14623.04700 g TALITA PULIDO Attn: Accounting,[address] [place], [address], [facility] 11/27/2021 15:55:34 Date Recorded Body height Body mass index (BMI) Systolic blood pressure Diastolic blood pressure Provider Name and Address Organization Details Last Updated DateTime 02/01/2022 160.02 cm 28.7 kg/m2 100 mm[Hg] 62 mm[Hg] Marianna Salmeron MA [facility] 02/01/2022 09:35:17 Date Recorded Body weight Provider Name an d Address Organization Details Last Updated DateTime 02/01/2022 06134.23609 g TALITA PULIDO Attn: Accounting,[address] [place], [address] [place] [address] 02/01/2022 09:45:56 Date Recorded Body height Body mass index (BMI) Body temperature Heart rate Oxygen saturation Oxygen saturation in Arterial blood by Pulse oximetry Systolic blood pressure Diastolic blood pressure Provider Name and Address Organization Details Last Updated DateTime 160.02 cm 28.6 kg/m2 98.5 [degF] 90 /min 98 % 98 % 108 mm[Hg] 71 mm[Hg] Rosa Humphries MA [facility] 2 14:46:58 Date Recorded Body weight Provider Name an d Address Organization Details Last Updated DateTime 02/22/2022 45914.190851 g Aparna karimi MD Attn: Accounting,[address] [place], [address] 02/24/2022 21:31:29 Date Recorded Body height Body mass index (BMI) Provider Name and Address Organization Details Last Updated DateTime 02/28/2022 160.02 cm 29.2 kg/m2 Rosetta Cortez MA [facility] 02/28/2022 15:58:52 Date Recorded Body weight Systolic blood pressure Diastolic blood pressure Provider Name and Address Organization Details Last Updated DateTime 02/28/2022 29094.7410 5 g 116 mm[Hg] 62 mm[Hg] Aparna Bah MD Attn: Accounting,[address] [facility], [place], [address], [place] - [place] 02/28/2022 16:55:15 Social History Question Answer Notes LastModified by Organizat ion Details LastModified Time Tobacco Smoking Status Never Smoker Ludivina Aleman MA null, [place] - [place] 05/11/2015 10:25:51 Do You Have An Advance Directive? No Information not available 12/20/2015 If You Are , What Was Your Level Of Alcohol Consumption Prior To ? None [email or web address] Information not available 12/20/2015 How Many Years Have You Consumed Alcohol? 0 [email or web address] Information not available 12/20/2015 Is Anesthesia Consult Planned? Yes Information not available 12/20/2015 Animal Exposure? No Information not available 05/11/2015 Plan No Information no t available 12/20/2015 Is Blood Transfusion Acceptable In An Emergency? No Information not available 12/20/2015 What Is Your Level Of Caffeine Consumption? Moderate Information not available 05/11/2015 Live With Cats/exposure To Cat Litter No Information not available 12/20/2015 How Much Tobacco Do You Chew? None Information not available 12/20/2015 What Type Of Diet Are You Following? REGULAR Information not available 05/11/2015 Which Illicit Or Recreational Drugs Have You Used? Denies [email or web address] Information not available 12/20/2015 Education 12 Information no t available 12/20/2015 Have There Been Any Changes To Your Family Or Social Situation? No Information not available 05/11/2015 What Is The Fluoride Status Of Your Home? Fluoridated Information not available 05/11/2015 Frequent Air Travel No Information not available 12/20/2015 Are There Any Guns Present In Your Home? No Information not available 05/11/2015 What Is Your Home Situation? Mother Jessica Hudson Information not available 05/11/2015 Illicit Drugs Pre- Denies None [email or web address] Information not available 12/20/2015 How Many Years Have You Used Illicit Or Recreational Drugs? 0 [email or web address] Information not available 12/20/2015 Live Alone Or With Others? With Others Information not available 12/20/2015 Parent Involvement? Both Parents Involved Information not available 05/11/2015 Marital Status Informatio n not available 12/20/2015 Mosquito Repellent Used Routinely No Information not available 05/11/2015 What Was The Date Of Your Most Recent Tobacco Screening? 02/28/2022 [email or web address] Information not available 02/28/2022 How Many Children Do You Have? 0 Information not available 12/20/2015 What Is Your Parents' Marital Status? Information not available 05/11/2015 Pool Exposure Yes Information not available 05/11/2015 What Is Your Relationship Status? Single Information not available 09/07/2021 What Is The Name Of Your School? [employer] Information not available 05/11/2015 Do You Use Your Seat Belt Or Car Seat Routinely? Yes Information not available 05/11/2015 Seat Belts Used Routinely Yes Information not available 12/20/2015 Are You Sexually Active? Yes Information not available 09/07/2021 Do You Have Any Siblings? 3 Information not available 05/11/2015 Do You Have Smoke And Carbon Monoxide Detectors In Your Home? Yes Information not available 05/11/2015 Are You Passively Exposed To Smoke? No Information not available 05/11/2015 How Much Tobacco Do You Smoke? No [email or web address] Information not available 12/20/2015 Smoking Pre- No Information not available 12/20/2015 General Stress Level Low Information not available 12/20/2015 Do You Use Sunscreen Routinely? No Information not available 05/11/2015 Supplements Vitamin [email or web address] Information not available 01/05/2016 Has Tobacco Cessation Counseling Been Provided? No Information not available 09/07/2021 How Many Years Have You Smoked Tobacco? 0 Information not available 12/20/2015 Year In School 12 Informatio n not available 05/11/2015 Sex: Unknown Functional Status Question Answer Note LastModified by Organizat ion Details LastModified Time Do you use any illicit or recreational drugs? No Information not available 09/07/2021 Do you or have you ever used any other forms of tobacco or nicotine? No [email or web address] Information not available 11/27/2021 What is your level of alcohol consumption? None Information not available 05/11/2015 Are you currently employed? No [email or web address] Information not available 01/05/2016 What is your occupation? Unemployed, with no work experience in the last 5 years or earlier or never worked [email or web address] Information not available 01/05/2016 What is your exercise level? Occasional Information not available 05/11/2015 Mental Status Question Answer Note LastModified by Organization D etails LastModified Time Are you or have you been involved with bullying? No Information not available 05/11/2015 Family History Nothing Reported. Medical History Condition Response Other N High Blood Pressure N Blood Diseases N Breast Cancer N Depression N Blood Clots N Lung Disease N Developmental or Behavioral Disorders N Breast Problem N Premature N Anesthesia Complications N Headaches/Migraines Y Anxiety Disorder N Muscle, Joint, or Bone Problems N Vision or Eye Problems N Head Injury/Concussion N Polyps N Infertility N Acid Reflux (GERD) N Cancer N ADHD N Endometriosis N Bladder or Kidney Problems N High Cholesterol N Liver Disease N Headaches N Ear or Hearing Problems N Thyroid Problems N Kidney or Bladder Problems N GI Problems N Acne N Skin Problems N Eating Disorder N Anemia N Constipation N Ovarian Cancer N Diabetes N Bedwetting N Blood Transfusions N Seizures/Epilepsy N Heart Problems/Murmur N Urinary Tract Infection Y Abuse/Domestic Violence N Allergies N Asthma N Substance Abuse N Hepatitis N Heart Disease N Pre-Eclampsia N Osteoporosis N Chicken Pox Y Autism Spectrum Disorder (ASD) N Gynecological History Statement/Question Response Date of LMP 06/28/2021 On BCP's at Conception? N STIs/STDs N HPV Vaccine Y Age at Menarche 18 Current Control Method Sexually Active? Y Menses Monthly N Date of Last Pap Smear 09/07/2021 Sexual Problems? N LMP Approximate Desired Control Method None Obstetrics History GPAL:G 2 P 1 0 0 1 Type Value Multiple Births 0 Full Term 1 Induced 0 Spontaneous 0 Premature 0 Living 1 Ectopics 0 Total 2 Immunizations Vaccine Type Date Status Note Provider Nam e and Address Organization Details Recorded Time DTaP, unspecified formulation 2 completed Not Available [facility] 03/26/2022 02:32:50 DTaP, unspecified formulation 8 completed Not Available [facility] 03/26/2022 02:32:50 DTaP, unspecified formulation 9 completed Not Available [facility] 03/26/2022 02:32:50 DTaP, unspecified formulation 8 completed Not Available [facility] 03/26/2022 02:32:50 DTaP, unspecified formulation 8 completed Not Available [facility] 03/26/2022 02:32:50 Hib, unspecified formulation 8 completed Not Available [facility] 03/26/2022 02:32:50 Hib, unspecified formulation 9 completed Not Available [facility] 03/26/2022 02:32:50 Hib, unspecified formulation 8 completed Not Available [facility] 03/26/2022 02:32:50 Hib, unspecified formulation 8 completed Not Available [facility] 03/26/2022 02:32:50 Hep A, unspecified formulation 2 completed Not Available [facility] 03/26/2022 02:32:50 Hep A, unspecified formulation 1 completed Not Available [facility] 03/26/2022 02:32:50 Hep B, unspecified formulation 8 completed Not Available [facility] 03/26/2022 02:32:50 Hep B, unspecified formulation 8 completed Not Available [facility] 03/26/2022 02:32:50 Hep B, unspecified formulation 8 completed Not Available [facility] 03/26/2022 02:32:50 HPV, unspecified formulation 1 completed Not Available [facility] 03/26/2022 02:32:50 HPV, unspecified formulation 9 completed Not Available [facility] 03/26/2022 02:32:50 HPV, unspecified formulation 2 completed Not Available [facility] 03/26/2022 02:32:50 influenza, unspecified formulation 1 completed Not Available [facility] 03/26/2022 02:32:50 MMR 2 completed Not Available [facility] 03/26/2022 02:32:50 MMR 9 completed Not Available [facility] 03/26/2022 02:32:50 meningococcal ACWY, unspecified formulation 9 completed Not Available [facility] 03/26/2022 02:32:50 Pneumococcal conjugate PCV 13 1 completed Not Available [facility] 03/26/2022 02:32:50 polio, unspecified formulation 8 completed Not Available [facility] 03/26/2022 02:32:50 polio, unspecified formulation 2 completed Not Available [facility] 03/26/2022 02:32:50 polio, unspecified formulation 8 completed Not Available [facility] 03/26/2022 02:32:50 polio, unspecified formulation 9 completed Not Available [facility] 03/26/2022 02:32:50 Tdap 9 completed Not Available [facility] 03/26/2022 02:32:50 varicella 9 completed Not Available [facility] 03/26/2022 02:32:50 varicella 9 completed Not Available [facility] 03/26/2022 02:32:50 Tdap 2 completed TALITA PULIDO Attn: Accounting,[address] [facility], [place], [address], [facility] - [place] 02/05/2022 13:52:28 Influenza, split virus, quadrivalent, PF 2 completed JOSE MIGUEL [place], [place] - [place] 02/08/2022 11:08:20 Meningococcal MCV4O 6 completed Not Available [facility] 05/15/2019 02:31:36 Past Encounters Encounter ID Performer Location Encounter Start Date Encounter Closed Date Diagnosis/Indication Diagnosis SNOMED-CT Code Diagnosis ICD10 Code Diagnosis Note [id number] Héctor Nina MD [facility] (Peds) [address] [place] [address] 05/11/2015 09:40:59 05/12/2015 03:48:35 Well child 039919246 Z00.129 Overweight 344975463 E66 .3 Acne vulgaris 70197128 L 70.0 [id number] MD Damian Ladd (BODY PRESS OPERATOR) [address] [place] [id number] 12/20/2015 10:15:29 12/20/2015 17:37:09 Routine care 929922501 Z34.92 Anemia of 2734 2003 O99.019 [id number] MD Damian Ladd (BODY PRESS OPERATOR) [address] [place] [id number] 01/05/2016 14:55:43 01/08/2016 10:09:13 Routine care 325590392 Z34.92 [id number] [facility] [address] [place] [id number] 01/15/2016 14:04:32 01/19/2016 11:16:07 Vomiting of 20312205 O21.9 Routine an tenatal care 548335686 Z34.92 Epistaxis 96800608 R04.0 [id number] MD Damian Ladd (BODY PRESS OPERATOR) [address] [place] [id number] 0 01/22/2016 16:00:45 01/23/2016 09:52:53 Biliary sludge 65382069 K83.8 [id number] MD Damian Ladd (BODY PRESS OPERATOR) [address] [place] [id number] 0 02/07/2016 12:16:36 02/08/2016 10:47:25 High risk 30580639 O09.92 Biliary sludge with nausea and vomiting Routine an tenatal care 151678961 Z34.92 [id number] MD Damian Ladd (BODY PRESS OPERATOR) [address] [place] [id number] 0 02/28/2016 14:42:20 02/29/2016 10:33:52 Routine care 181054918 Z34.92 [id number] [facility] [address] [place] [id number] 0 03/13/2016 15:29:32 03/13/2016 17:30:22 Routine care 021468132 Z34.92 [id number] MD Damian Ladd (BODY PRESS OPERATOR) [address] [place] [id number] 0 04/03/2016 12:16:08 04/04/2016 10:43:14 Routine care 840898686 Z34.92 [id number] [facility] [address] [place] [id number] 0 05/02/2016 16:34:59 05/03/2016 10:05:53 Routine care 444065579 Z34.92 [id number] [facility] [address] [place] [id number] 09/07/2021 08:27:54 09/12/2021 09:40:34 Routine care 660017892 Z34.90 26 y/o female presents today for a NOB visit. LMP was on 06/28/21, with approximat e gestationa l age of 10 weeks, 1 day. Pt has had daily nausea and vomiting worse with PO challenge, will provide a prescripti on for promethazi ne for symptomati c relief. Denies vaginal bleeding or discharge, abdominal pain or cramping. Initial labs drawn today, order for first trimester US provided. OB education provided and ectopic and SAB precaution s discussed. RTC in 4 weeks, cfDNA at next visit. [id number] TALITA PULIDO (BODY PRESS OPERATOR) [address] [place] [id number] 11/27/2021 15:35:25 11/28/2021 13:24:01 Routine care 797753146 Z34.92 26 y/o female presents today for a HEYDI at 21+5 weeks. c/b chlamydia. This is her first return visit since her initial appointmen t in August. She has no concerns today. Denies any vaginal bleeding or discharge, LOF, contractio ns/crampin g. Her fundal height today is LGA around 23-24 weeks. She completed her first US today prior to this appointmen t, awaiting report. cfDNA drawn today. RTC in 4 weeks. History of chlamydial infection 732042482 Z86.19 S/p azithromyc in. Pt reports that partner was treated as well. She is currently asymptomat ic. Will retest today. Safe sex practices discussed. [id number] [facility] [address] [place] [id number] 12/04/2021 16:22:12 12/06/2021 12:18:10 Gonorrhea 15205020 A54.9 [id number] [facility] OPERATOR) [address] [place] [id number] 02/01/2022 09:17:45 02/05/2022 14:09:11 Routine care 634511230 Z34.93 26 y/o female presents today for a HEYDI at 33 weeks. c/b chlamydia, gonorrhea, and insufficie nt care. Denies any vaginal bleeding or discharge, LOF, contractio ns/crampin g. Obstetric US on 12/04 with [facility] showed weight 67%, KESHAWN WNL, mild right sided renal pelvis dilation, likely physiologi c. Pt needs to follow up with US to reassess. Her fundal height today is 27 cm. FHT 138 bpm. Referral to [facility] for SGA fetus. Tdap and flu shot administer ed. 1 hour GCT completed today.-Fet al movement and kick counts reviewed-P re-eclamps ia and pre-term labor precaution s reviewed-T OC to [facility] for remainder of care History of sexually transmitted disease 310087365 Z86.19 c/b chlamydia and gonorrhea. S/p treatment, repeat testing today. Safe sex practices discussed. Insufficie nt care 2944751471 109 O09.33 Small for gestational age fetus 077423402 O36.5999 Fundal height today was SGA at 27 cm. Further eval with MFM. Administra tion of influenza vaccine 33418293 Z23 [id number] Leana Carey MD [place] [address] [address] 02/22/2022 14:19:50 02/25/2022 17:23:38 Routine care 998924275 Z34.83 26yo G{{1 2* 3 4 5 6 7 8 9}}P{{0 1* 2 3 4 5 6 7 8 9}}{{ 0* 1 2 3 4 5 6 7 8 9 }}{{0* 1 2 3 4 5 6 7 8 9}}{{0 1* 2 3 4 5 6 7 8 9}} femaleHigh -risk ? {{no* yes} }Final IDRIS: {{Apr Ma y Sep Nov* D ec}}{{1 2 3 4 5 6 7 8 9 10 11 12 13 14 1 5 16 17 18 19 20 21 22 23 24 2 5* 26 27 2 8 30 31}}{ {2021* 202 3 2023}} based on {{1st trimester US 2nd trimester US* 3rd trimester US LMP}} PMH: Anemia complicate d by: chlamydia in 2TM (treated) , gonorrhea in 3TM (treated) , and trichomona s infection in 3TM (treated), insufficie nt care Rh: {{positive negative* }}RhoGAM given: {{n/a* yes no ordere d}} : {{no* yes} } labs: {{normal a bnormal*}} Abnormal lab: {{none blo od count plat elets HbSA g RPR Anti body screen Rh negative U A urine culture Ru bellea Non-Immune sickle cell UDS G C chlamydi a gonorrhe a trichomo dang CF pap hepatitis C Quad screen 1 hr GTT* 3 hr GTT}} Anemia Plan for abnormal results if indicated: 3hr GTT normal. Iron supplement ation for anemia 2nd trimester US: {{normal a bnormal* n ot done}}show ing mild left sided pelvic dilatation . Repeat 3TUS normal. Total weight gain: Pre-pregna ncy weight 162lbs, 161lbs today. Recommende d weight gain: {{BMI <18.5 28-40 lbs BMI 18.5-24.9 25-35 lbs BMI 25-29.9 15-25 lbs* BMI >30 11-20}} Flu vaccine: {{UTD* dec lined give n today will offer in season Nov-July} } Covid vaccine: {{UTD decl ined* give n today}} Tdap: {{UTD* dec lined give n today}} Vertex scan done: {{yes, vertex* ye s, not vertex no} } GBS status: {{to be collected 36+ weeks crow ected* neg ative posi tive}} Breast pump ordered: {{yes no d eclined wi ll order today#}}MF M referral: {{no* yes} }Behaviora l Health: {{no* yes} } Follow-up: {{1* 2 3 4 5 6 7 8 9 10 11 12 13}}{{days week{s}* month(s)}} - movement and kick counts reviewed-P re-eclamps ia and pre-term labor precaution s reviewed-R eviewed labor expectatio ns (anesthesi a, support people) and induction of labor: Does not want any pain control during labor.-Rev iewed labor precaution s-Send PNV-Discus sed contracept ion and reviewed sterilizat ion consent if desired. Plans to use condoms- Patient desires water . Discussed with patient we do not have the equipment for water births at our hospital-D iscussed choice of provider for pediatric care, will come to [facility] clinic- GBS swab today Trichomona l vaginitis in 482703886 O98.319 Positive trich on 02/01Patie nt and partner treated with flagyl 500mg bid x7 days- will repeat nuswab today Glucose to lerance test outside reference range 716948131 R73.09 1hr GTT 1423hr GTT WNL Maternal g onorrhea during 6010826615 98836 A54.9 MARGARITA on 02/01Wi repeat nuswab today Chlamydia trachomatis infection in 2023630936 101 O23.93 MARGARITA on 11/27/21Wi repeat nuswab today Iron defic iency anemia 80101854 D50.9 3TM Hgb 9.01TM Hgb WNL- Will repeat CBC today- Continue PO iron [id number] Leana Carey MD [facility] [address] [address] 02/28/2022 15:44:54 03/04/2022 11:51:40 Routine care 448757595 Z34.83 26yo G{{1 2* 3 4 5 6 7 8 9}}P{{0 1* 2 3 4 5 6 7 8 9}}{{ 0* 1 2 3 4 5 6 7 8 9 }}{{0* 1 2 3 4 5 6 7 8 9}}{{0 1* 2 3 4 5 6 7 8 9}} femaleHigh -risk ? {{no* yes} }Final IDRIS: {{Apr Ma y Sep Nov* D ec}}{{1 2 3 4 5 6 7 8 9 10 11 12 13 14 1 5 16 17 18 19 20 21 22 23 24 2 5* 26 27 2 8 30 31}}{ {2021* 2023}} based on {{1st trimester US 2nd trimester US* 3rd trimester US LMP}} PMH: Anemia complicate d by: chlamydia in 2TM (treated) , gonorrhea in 3TM (treated) , and trichomona s infection in 3TM (treated), insufficie nt care Rh: {{positive negative* }}RhoGAM given: {{n/a* yes no ordere d}} : {{no* yes} } labs: {{normal a bnormal*}} Abnormal lab: {{none blo od count plat elets HbSA g RPR Anti body screen Rh negative U A urine culture Ru bellea Non-Immune sickle cell UDS G C chlamydi a gonorrhe a trichomo dang CF pap hepatitis C Quad screen 1 hr GTT* 3 hr GTT}} Anemia, nuswab in 2TM and 3TM Plan for abnormal results if indicated: 3hr GTT normal. Iron supplement ation for anemia. Repeat 3TM nuswab on 02/21/22 negative. 2nd trimester US: {{normal a bnormal* n ot done}}show ing mild left sided pelvic dilatation . Repeat 3TUS normal. Total weight gain: Pre-pregna ncy weight 162lbs, 165lbs today Recommende d weight gain: {{BMI <18.5 28-40 lbs BMI 18.5-24.9 25-35 lbs BMI 25-29.9 15-25 lbs* BMI >30 11-20}} Flu vaccine: {{UTD* dec lined give n today will offer in season Nov-July} } Covid vaccine: {{UTD decl ined* give n today}} Tdap: {{UTD* dec lined give n today}} Vertex scan done: {{yes, vertex* ye s, not vertex no} } GBS status: {{to be collected 36+ weeks crow ected nega tive posit dilma*}} Breast pump ordered: {{yes no d eclined wi ll order today#}}MF M referral: {{no* yes} }Behaviora l Health: {{no* yes} } Follow-up: {{1* 2 3 4 5 6 7 8 9 10 11 12 13}}{{days week{s}* month(s)}} - movement and kick counts reviewed-P re-eclamps ia and pre-term labor precaution s reviewed-R eviewed labor expectatio ns (anesthesi a, support people) and induction of labor: Does not want any pain control during labor.-Rev iewed labor precaution s-Discusse d contracept ion and reviewed sterilizat ion consent if desired. Plans to use condoms- Patient desires water . Discussed with patient we do not have the equipment for water births at our hospital.- Discussed choice of provider for pediatric care, will come to [facility] clinic-Dis cussed risks/bene fits of circumcisi on for baby, patient will take some time to think about it Trichomona l vaginitis in 025217213 O98.319 Positive trich on 02/01Patie nt and partner treated with flagyl 500mg bid x7 days- MARGARITA on 02/21 negative Glucose to lerance test outside reference range 621618495 R73.09 1hr GTT 1423hr GTT WNL Maternal g onorrhea during 6435073122 34371 A54.9 MARGARITA on 02/01- repeat 3TM nuswab negative Chlamydia trachomatis infection in 2140280734 101 O23.93 MARGARITA on 11/27/21- repeat 3TM nuswab negative Iron defic iency anemia 37128842 D50.9 1TM Hgb WNL1: 3TM Hgb 9.0- repeat 3TM 02/21: Hgb 8.7- Continue PO iron every other day- Will order Venofer 200mg in light of Hgb decreasing in spite of patient taking PO iron [employer] [facility] reptococcus carrier 5085552752 103 Z22.330 GBS positive on 02/21/22- Will require intrapartu m prophylaxi s with Penicillin Health Concerns Section Related Observation LastModified by Organization Detai ls LastModified Time None Recorded Concern Status LastModified by Organization Details LastModified Time None Recorded Advance Directives Directive N: Payers Encounter Date Sequence Insurance Name Policy Number Policy Mark Covered Member ID Mark Member ID Guarantor Name 11/27/2021 1 [employer] [place] ON [place] 2020 (MEDICAID REPLACEMENT - HMO) Nancy Byrne [id number] Nancy Byrne 12/04/2021 1 [employer] [place] REPLACEMENT - HMO) Nancy Byrne [id number] Nancy Byrne 02/01/2022 1 [employer] [place] 2020 [place]PLAC[place] - HMO) Nancy Byrne [id number] Nancy Byrne 02/22/2022 1 [employer] [place]PLAC[place] - [place]MO) Nancy Byrne [id number] Nancy Byrne 02/28/2022 1 [employer] [place] REPLAC[place] - [place]MO) Nancy Byrne [id number] Nancy Byrne Notes Date Note Type Note Provider Name and Address Organization Details Recorded Time 11/27/2021 text/html 26 y/o female presents today for a HEYDI at 21+5 weeks. c/b chlamydia. This is her first return visit since her initial appointment in August. She has no concerns today. She completed her first US today prior to this appointment. Was told she was measuring further along than her LMP suggests. + movement. Denies any vaginal bleeding or discharge, LOF, contractions/cramp ing. TALITA PULIDO Attn: Accounting,[address] [place], [address], [facility] - [facility] 11/28/2021 10:05:05 02/01/2022 text/html 26 y/o female presents today for a HEYDI at 33 weeks. c/b chlamydia, gonorrhea, and insufficient care. She has no concerns today. Baby moving well, feels the baby kicking mostly at night. She is still having nausea and vomiting in the AM. No spotting, cramping, fluid leakage or contractions. TALITA PULIDO Attn: Accounting,[address] [facility], [place], [address], [facility] - [facility]IF 02/05/2022 14:01:02 02/22/2022 text/html 26yr old female at 36w0d [place] d/t second trimester US presenting for routine OB visit. Transfer from [facility]. complicated by gonorrhea infection in 3TM, chlamydia infection in 2TM (treated), Trichomonas infection in 3TM (treated). Mild dilated left renal pelvis on 2TM US (resolved) No acute concerns today Is having a boy Has not been taking PNV. States her previous provider did not send in the medication to her pharmacyHas been taking iron Desires water Denies fever, headaches, blurry vision, contractions, decreased movement, vaginal discharge, vaginal bleeding, LE swelling Bharathi Llanos MD Attn: Accounting[address] [place], [address], [place] - [facility] 02/28/2022 16:36:35 02/28/2022 text/html 26yr old female at 36w6d [place] d/t second trimester US presenting for routine OB visit. complicated by gonorrhea infection in 3TM, chlamydia infection in 2TM (treated), Trichomonas infection in 3TM (treated). Mild dilated left renal pelvis on 2TM US (resolved), insufficient care GBS swab positive No acute concerns today. Is having a boy Denies fever, headaches, blurry vision, contractions, decreased movement, vaginal discharge, vaginal bleeding, LE swelling Lo Gupta MD Attn: Accounting,[address] [facility], [place], [address], [place] 03/01/2022 14:26:06 OBGyn Episode Ob Episode Information Episode Created Date Number of Fetuses Patient Bloodtype Patient rh Status Prepregnancy Weight lbs Domestic Partner Domestic Partner Phone Father Name Pizzamaker Status 09/08/19 22 1 O Positive 162 CLOSED Fetus Data First Name Last Name Admitted to NICU Weight (g) Sex Living Outcome Pediatric Complications Fetus ID Race Codes Race Delivery Type false 3515.33 8 M [id number] [id number] White Vaginal Problems Problem Notes Boy Problem Name Start Date End Date Resolution Snomed Code Not e Infection by Trichomonas 02/01/2022 MEDICATION [id number] Will perform TO C on 02/22 Group B Streptococcus carrier 02/28/2022 [id number] Maternal gonorrhea during 12/04/2021 [id number] MARGARITA 02/01 Insufficient care 02/01/2022 [id number] Chlamydial infection 09/18/2021 [id number] MARGARITA 11/27/21 Idris Calculation Initial Idris Date Initial Exam Date Initial Exam Provider Initial Ultrasound Date Last Menstrual Period Date Ultra Sound Weeks Gestation 03/22/2022 09/07/2021 [email or web address] 11/28/2021 06/28/2021 23 Eighteen To Twenty Week Idris Update Ultra Sound Date Fundal Height At Umbil Quickening Date Ultra Sound Latest Weeks Gestation Final Idris Confirmed By Final Idris Confirmed Date Final Idris Date Ultra Sound Latest Days Gestation 11/29/19 23 [email or web address] 11/28/2021 022 4 Pre- Flowsheet Flowsheet Date 09/07/2021 Bates Score Blood Edema Fundus Height Fundus Units Glucose Ketones Leukocytes Nitrite Labor Signs Protein Cervic Dilation Cervic Effacement Cervic Station 10 wks Type Weight in lbs Pre/Post Dialysis Refused With clothes 162.057473415460 BP Diastolic BP Location Tested BP Systolic BP Type 68 100 sitting Fetus Heart Rate Present Fetus Movement Comments 26 y/o female presen ts today for a NOB visit. LMP was on 06/28/21, with approximate gestational age of 10 weeks, 1 day. Pt has had daily nausea and vomiting worse with PO challenge, will provide a prescription for promethazine for symptomatic relief. Denies vaginal bleeding or discharge, abdominal pain or cramping. Initial labs drawn today, order for first trimester US provided. OB education provided and ectopic and SAB precautions discussed. RTC in 4 weeks, cfDNA at next visit. Flowsheet Date 11/27/2021 Bates Score Blood Edema Fundus Height Fundus Units Glucose Ketones Leukocytes Nitrite Labor Signs Protein Cervic Dilation Cervic Effacement Cervic Station neg none 24 wks none trace none neg Type Weight in lbs Pre/Post Dialysis Refused With clothes 158.501701383718 BP Diastolic BP Location Tested BP Systolic BP Type 62 108 sitting Fetus Heart Rate Present A 145 Present Fetus Movement A Yes Comments 26 y/o female presen ts today for a HEYDI at 21+5 weeks. c/b chlamydia. This is her first return visit since her initial appointment in August. She has no concerns today. Denies any vaginal bleeding or discharge, LOF, contractions/cramping. Her fundal height today is LGA around 23-24 weeks. She completed her first US today prior to this appointment, awaiting report. cfDNA drawn today. MARGARITA for chlamydia. RTC in 4 weeks. Flowsheet Date 12/04/2021 Bates Score Blood Edema Fundus Height Fundus Units Glucose Ketones Leukocytes Nitrite Labor Signs Protein Cervic Dilation Cervic Effacement Cervic Station Type Weight in lbs Pre/Post Dialysis Refused BP Diastolic BP Location Tested BP Systolic BP Type Fetus Heart Rate Present Fetus Movement Comments Flowsheet Date 02/01/2022 Bates Score Blood Edema Fundus Height Fundus Units Glucose Ketones Leukocytes Nitrite Labor Signs Protein Cervic Dilation Cervic Effacement Cervic Station neg none 27 cm none negative none neg Type Weight in lbs Pre/Post Dialysis Refused With clothes 162.930938184167 BP Diastolic BP Location Tested BP Systolic BP Type 62 100 sitting Fetus Heart Rate Present A 138 Present Fetus Movement A Yes Comments 26 y/o female presen ts today for a HEYDI at 33 weeks. c/b chlamydia, gonorrhea, and insufficient care. Denies any vaginal bleeding or discharge, LOF, contractions/cramping. Obstetric US on 12/04 with [facility] showed weight 67%, KESHAWN WNL, mild right sided renal pelvis dilation, likely physiologic. Pt needs to follow up with US to reassess. Her fundal height today is 27 cm. Referral placed to [facility] for SGA fetus. Tdap and flu shot administered. 1 hour GCT completed today. MARGARITA for STDs. movement and kick counts reviewed. Pre-eclampsia and pre-term labor precautions reviewed. [facility] to [facility] for remainder of care and delivery. Flowsheet Date 02/22/2022 Bates Score Blood Edema Fundus Height Fundus Units Glucose Ketones Leukocytes Nitrite Labor Signs Protein Cervic Dilation Cervic Effacement Cervic Station Type Weight in lbs Pre/Post Dialysis Refused With clothes 161.30920534745 BP Diastolic BP Location Tested BP Systolic BP Type 71 108 sitting Fetus Heart Rate Present A 135 Fetus Movement Comments 26 y/o female EGA 36 w0d d/t 2TM US presenting for heydi. Transfer from [facility]. c/b chlamydia, gonorrhea, trich, anemia (on PO iron), insufficient care. No acute concerns today. Will obtain nuswab and GBS swab. Will repeat CBC today. Discussed labor precautions, pre-eclampsia, PNV, pain management (patient declines pain medications during labor). movement and kick counts reviewed. F/u 1 week Flowsheet Date 02/28/2022 Bates Score Blood Edema Fundus Height Fundus Units Glucose Ketones Leukocytes Nitrite Labor Signs Protein Cervic Dilation Cervic Effacement Cervic Station 35.5 wks Type Weight in lbs Pre/Post Dialysis Refused Weight 165.810604540015 BP Diastolic BP Location Tested BP Systolic BP Type 62 116 sitting Fetus Heart Rate Present A 140 Present Fetus Movement Comments 26y/o EGA 36w6d d/b 2TM US presenting for HEYDI. c/b chlamydia, gonorrhea, trich, anemia (on PO iron), insufficient care, GBS positive swab. No acute concerns. Hgb 8.7 (down from 9.0 3 weeks ago). Patient reports compliance with PO iron. Will order IV Venofer. Discussed risks/benefits of Circumcision, patient states she would like to think about it. ER return precautions provided. F/u 1 week Flowsheet Date 02/28/2022 Bates Score Blood Edema Fundus Height Fundus Units Glucose Ketones Leukocytes Nitrite Labor Signs Protein Cervic Dilation Cervic Effacement Cervic Station Type Weight in lbs Pre/Post Dialysis Refused BP Diastolic BP Location Tested BP Systolic BP Type Fetus Heart Rate Present Fetus Movement Comments Menstrual History Last Menstrual Date Menses Monthly On Bcp Conception Prior Menses Frequency Hcg Plus Date Menarche Onset Age 0306/28/2021 true false 16 Genetic Screening And Infection History Question Response Note Patient's Age Will Be 35 Years Or Older At Estim ated Date of Delivery false Thalassemia (Lao, Gambian, Mediterranean, Or Background): MCV < 80 false Neural Tube Defect (Meningomyelocele, Spina Bifi da, Or Anencephaly) false Congenital Heart Defect false Down Syndrome false Kirby-Sachs (eg, Taoism, Cajun, Wallisian-[place]) f alse Emily Disease false Sickle Cell Disease Or Trait () false Hemophilia Or Other Blood Disorders false Muscular Dystrophy false Cystic Fibrosis false Quinault's Chorea false Mental Retardation/Autism false If Yes, Was Person Tested For [...] STD, Gonorrhea, Chlamydia, HPV, Syphi lis true CT Other Infection History false History of HIV false History of Hepatitis false Prior GBS-infected child false Plans and Education First Trimester Discussed Date Discussion Item Discussion Note Discuss ed By 09/11/2021 Anticipated course of care [email or web address] 09/11/2021 Alcohol [email or web address] 09/11/2021 Intimate partner violence veto [email or web address] 09/11/2021 Environmental/work hazards j [email or web address] 09/11/2021 Screening for aneuploidy jco [email or web address] 09/11/2021 Nutrition counseling ; special diet; dietary precautions (mercury, listeriosis) [place] [address] 09/11/2021 Childbirth classes/hospital facilities [place] [address] 09/11/2021 HIV and other routine tests [place] [address] 09/11/2021 Risk factors identif ied by history [place] [address] 09/11/2021 [facility] Exercise [place] [address] 09/11/2021 Teratogens [place] [address] 09/11/2021 Use of any medicatio ns (including supplements, vitamins, herbs, or OTC drugs) [place] [address] 09/11/2021 [place] [address] 09/11/2021 Sexual activity [place] [address] 09/11/2021 Tobacco/smoking cess ation counseling (ask, advise, assess, assist, and arrange) [place] [address] 09/11/2021 Illicit/recreational drugs [place] [address] 09/11/2021 Dental care [place] [address] 09/11/2021 Travel [place] [address] 09/11/2021 Seat belt use [place] [address] 09/11/2021 Indications for ultrasonography [place] [address] 09/11/2021 Avoidance of saunas or hot tubs [place] [address] 09/11/2021 Toxoplasmosis precautions (cats/raw meat) [place] [address] Second Trimester Discussed Date Discussion Item Discussion Note Discuss ed By 11/27/2021 [facility] 11/27/[address] [facility]ning[facility] 11/27/2021 Depression screening (when indicated[facility] 11/27/2021 Abnormal lab values jcortopa [email or web address] 11/27/2021 Signs and symptoms of labor [email or web address] 11/27/2021 Intimate partner violence veto [email or web address] 11/27/2021 Tobacco/smoking cess ation counseling (ask, advise, assess, assist, and arrange) [place] [address] Third Trimester Discussed Date Discussion Item Discussion Note Discuss ed By Delivery Information Delivery Date Delivery Type Labor Anesthesia Weeks Gestation Incision Type Labor Labor Length Hrs Delivered By Post Complications Tubal Sterilization Discharge Date Comments 11/25/202 2 Sponta neous 40 None Discharge Information Feeding Method Contraceptive Method Maternal HG B and HCT Levels Ob Episode Information Episode Created Date Number of Fetuses Patient Bloodtype Patient rh Status Prepregnancy Weight lbs Domestic Partner Domestic Partner Phone Father Name Pizzamaker Status 12/20/19 16 1 O Positive 156 Chava Mcleod CLOSED Fetus Data First Name Last Name Admitted to NICU Weight (g) Sex Living Outcome Pediatric Complications Fetus ID Race Codes Race Delivery Type Carly Mcleod false 3373.59 05 F true Full Term 80663 2106-3 White Vaginal Problems Problem Notes vaginal delivery, pt no epid ual,baby girl, [place], both breast and bottle feed, pt to let know next visit on Peds for baby, 04/03/16 cbma Problem Name Start Date End Date Resolution Snomed Code Not e Anemia of 03197769 Biliary sludge 36639561 Placental abnormality, antepartum 590405540900 Ultrasound scan abnormal 47538 5008 Anemia 691971529 Epistaxis 63466775 Vomiting of [id number] Idris Calculation Initial Idris Date Initial Exam Date Initial Exam Provider Initial Ultrasound Date Last Menstrual Period Date Ultra Sound Weeks Gestation 05/06/2016 12/20/2015 [facility] 07/31/2015 0 Eighteen To Twenty Week Idris Update Ultra Sound Date Fundal Height At Umbil Quickening Date Ultra Sound Latest Weeks Gestation Final Idris Confirmed By Final Idris Confirmed Date Final Idris Date Ultra Sound Latest Days Gestation 01/10/20 16 23 [facility] 01/11/2016 05/06/19 17 2 Pre- Flowsheet Flowsheet Date 12/20/2015 Bates Score Blood Edema Fundus Height Fundus Units Glucose Ketones Leukocytes Nitrite Labor Signs Protein Cervic Dilation Cervic Effacement Cervic Station neg none 21 none negative Other (see comments ) trace 0cm 0% -4 Type Weight in lbs Pre/Post Dialysis Refused 146.425600664534 BP Diastolic BP Location Tested BP Systolic BP Type 62 102 sitting Fetus Heart Rate Present A 145 Fetus Movement A Yes Comments C/O LOF since 4 weeks.NITRAZ INE TEST NEGATIVE IN OFFICE TODAYFerning test negative in office today18 YO @ 20 WK 2 days by LMP- new OB visitTrimester counseling done (refer to [facility])PTL precautions discusedPrenatal vitamins prescribedprenatal labs orderedTold nurse to get her records - Patient signed record releaseAnatomy US Ultrasound orderedRTC in 2 weeks Flowsheet Date 01/05/2016 Bates Score Blood Edema Fundus Height Fundus Units Glucose Ketones Leukocytes Nitrite Labor Signs Protein Cervic Dilation Cervic Effacement Cervic Station Type Weight in lbs Pre/Post Dialysis Refused BP Diastolic BP Location Tested BP Systolic BP Type Fetus Heart Rate Present Fetus Movement Comments Flowsheet Date 01/15/2016 Bates Score Blood Edema Fundus Height Fundus Units Glucose Ketones Leukocytes Nitrite Labor Signs Protein Cervic Dilation Cervic Effacement Cervic Station neg none 25.5 cm none negative Other (see comments ) trace 0cm 0% -4 Type Weight in lbs Pre/Post Dialysis Refused 145.3348082401 BP Diastolic BP Location Tested BP Systolic BP Type 82 120 sitting Fetus Heart Rate Present A 148 Present Fetus Movement A Yes Comments occasional leaking of fluid - Amino test negative in office today. She says she has been vomiting recently. She say she went to ER on 01/01/16 for abdominal pain and was sent home. she says she started vomiting since 01/12/16. She is c/o acid reflex with it. She say she had nose bleeds at the same time. she say she swallowed the blood and vomited the same. Her UA is negative for ketones. - will order CMP,Amylase, Lipase, PT,PTT,INR,CBC,US abdomen. Advised patient to go to ER if symptoms get worse. OB US in 4 weeks. Advised patient to take zantac. Reglan prescribed for vomiting. RTC in 1 weekAlso advised patient to f/u with PCP for nose bleeds Flowsheet Date 01/22/2016 Bates Score Blood Edema Fundus Height Fundus Units Glucose Ketones Leukocytes Nitrite Labor Signs Protein Cervic Dilation Cervic Effacement Cervic Station trace none 24.5 none small none 1+ Type Weight in lbs Pre/Post Dialysis Refused 146.046705880077 BP Diastolic BP Location Tested BP Systolic BP Type 72 112 sitting Fetus Heart Rate Present A 152 Fetus Movement A Yes Comments Patient says she still vomit ing but able to keep some food. Her nose bleeds improved as per patient. D/w patient all lab work and ultrasound results. Counseled about biliary sludge. refer to MFM. RTC in 1 week Flowsheet Date 02/07/2016 Bates Score Blood Edema Fundus Height Fundus Units Glucose Ketones Leukocytes Nitrite Labor Signs Protein Cervic Dilation Cervic Effacement Cervic Station neg none 27 none negative none neg Type Weight in lbs Pre/Post Dialysis Refused 148.412894074512 BP Diastolic BP Location Tested BP Systolic BP Type 78 112 sitting Fetus Heart Rate Present A 147 Present Fetus Movement A Yes Comments She say she saw M and has follow up appointment next week. She says her nausea and vomiting improved. Schedule NST BPP from 28 weeks. PTL precautions discussed Flowsheet Date 02/28/2016 Bates Score Blood Edema Fundus Height Fundus Units Glucose Ketones Leukocytes Nitrite Labor Signs Protein Cervic Dilation Cervic Effacement Cervic Station neg none 30 cm none negative none neg Type Weight in lbs Pre/Post Dialysis Refused 150.931333612292 BP Diastolic BP Location Tested BP Systolic BP Type 78 112 sitting Fetus Heart Rate Present A 145 Present Fetus Movement A Yes Comments PTL precautions discussed. s he say she did 1 hr GTT at [place]. Advised nurse Krissy to get records. She is scheduled for Biweekly NST, BPP Flowsheet Date 03/13/2016 Bates Score Blood Edema Fundus Height Fundus Units Glucose Ketones Leukocytes Nitrite Labor Signs Protein Cervic Dilation Cervic Effacement Cervic Station neg none 32 cm none small none neg Type Weight in lbs Pre/Post Dialysis Refused 152.439594482646 BP Diastolic BP Location Tested BP Systolic BP Type 64 112 sitting Fetus Heart Rate Present A 126 Present Fetus Movement A Yes Comments PTL and kick counts discusse d. 1 hr GTT 130 done at [facility]. Flowsheet Date 04/03/2016 Bates Score Blood Edema Fundus Height Fundus Units Glucose Ketones Leukocytes Nitrite Labor Signs Protein Cervic Dilation Cervic Effacement Cervic Station neg none 34.5 cm none trace none trace 0cm 0% -4 Type Weight in lbs Pre/Post Dialysis Refused 152.972413528865 BP Diastolic BP Location Tested BP Systolic BP Type 70 108 sitting Fetus Heart Rate Present A 145 Present Fetus Movement A Yes Comments GBS, Nuswab done today.Patie nt say she did not do NST. Non compliant.Counseled about importance of doing NST,BPP. Advised nurse Wilian to schedule NST and BPP. Flowsheet Date 05/02/2016 Bates Score Blood Edema Fundus Height Fundus Units Glucose Ketones Leukocytes Nitrite Labor Signs Protein Cervic Dilation Cervic Effacement Cervic Station neg none 39.5 cm none negative none neg 0cm 0% - 4 Type Weight in lbs Pre/Post Dialysis Refused 159.658584799084 BP Diastolic BP Location Tested BP Systolic BP Type 64 102 sitting Fetus Heart Rate Present A 145 Present Fetus Movement A Yes Comments Menstrual History Last Menstrual Date Menses Monthly On Bcp Conception Prior Menses Frequency Hcg Plus Date Menarche Onset Age 0407/31/2015 true false 28 6 16 Genetic Screening And Infection History Question Response Note Patient's Age Will Be 35 Yea rs Or Older At Estimated Date of Delivery false Thalassemia (Lao, Gambian, Mediterranean, Or Background): MCV < 80 false Neural Tube Defect (Meningom yelocele, Spina Bifida, Or Anencephaly) false Congenital Heart Defect false Down Syndrome false Kirby-Sachs (eg, Taoism, Cajun, Wallisian-[place]) f alse Emily Disease false Sickle Cell Disease Or Trait () false Hemophilia Or Other Blood Disorders false Muscular Dystrophy false Cystic Fibrosis false Gaurang's Chorea false Mental Retardation/Autism false If Yes, Was Person Tested For Fragile X? false Other Inherited Genetic Or Chromosomal Disorder false Maternal Metabolic Disorder (eg, Type 1 Diabetes , PKU) false Patient Or Baby's Father Had A Child With Defects Not Listed Above false Recurrent Loss, Or A Stillbirth false Medications (including Suppl ements, Vitamins, Herbs, OTC Drugs), Illicit/Recreational Drugs, Alcohol true v itamin If Yes, Agent(s) And Strength/Dosage false Any Other Genetic History false Live With Someone With TB Or Exposed To TB false Patient Or Partner Has History Of Genital Herpes false Rash Or Viral Illness Since Last Menstrual Perio d false History Of STD, Gonorrhea, Chlamydia, HPV, Syphi lis false Other Infection History false Plans and Education First Trimester Discussed Date Discussion Item Discussion Note Discuss ed By 12/20/2015 Anticipated course of care natalya 12/20/2015 Alcohol [place] 12/20/2015 Intimate partner violence [place]ie 12/20/2015 Environmental/work hazards s meena 12/20/2015 Screening for aneuploidy [place] 12/20/2015 Nutrition counseling ; special diet; dietary precautions (mercury, listeriosis) [facility] 12/20/2015 Childbirth classes/hospital facilities [facility] 12/20/2015 HIV and other routine tests [facility] 12/20/2015 Risk factors identif ied by history [facility] 12/20/2015 Weight gain counseling [facility] 12/20/2015 Exercise [facility] 12/20/2015 Teratogens [facility] 12/20/2015 Use of any medicatio ns (including supplements, vitamins, herbs, or OTC drugs) [facility] 12/20/2015 Both [facility] 12/20/2015 Sexual activity [facility] 12/20/2015 Tobacco/smoking cess ation counseling (ask, advise, assess, assist, and arrange) [facility] 12/20/2015 Illicit[facility]recreational drugs [facility] 12/20/2015 Dental care [facility] 12/20/2015 Travel [facility] 12/20/2015 Seat belt use [facility] 12/20/2015 Indications for ultrasonography [facility] 12/20/2015 Avoidance of saunas or hot tubs [facility] 12/20/2015 Toxoplasmosis precautions (cats/raw meat) [facility] Second Trimester Discussed Date Discussion Item Discussion Note Discuss ed By 12/20/2015 Selecting a care provider not dec ided yet [facility] 02/07/[address] anning/tubal sterilization Declines control [facility] 12/20/2015 Depression screening (when indicated) [facility] 02/07/2016 Abnormal lab values [facility] 12/20/2015 Signs and symptoms o f labor [facility] 12/20/2015 [facility] 12/20/2015 Tobacco/smoking cess ation counseling (ask, advise, assess, assist, and arrange) [facility] Third Trimester Discussed Date Discussion Item Discussion Note Discuss ed By 02/07/2016 [facility] 01/05/2016 Anesthesia plans Natural [email or web address] 02/07/2016 education (n ewborn screening, jaundice, SIDS/safe sleeping position, car seat) [facility] Circumcision pt having baby girl 02/07/2016 [facility] 02/07[facility]2016 movement monitoring uyysatyau 01/05/2016 Both [email or web address] 02/07/2016 Labor signs [facility] 02/07/2016 depression [facility] 02/07/2016 Family medical leave or disability forms [facility] 02/07/2016 Tobacco/smoking cess ation counseling (ask, advise, assess, assist, and arrange) [facility] 02/07/2016 Signs and symptoms of preeclampsia [facility] Delivery Information Delivery Date Delivery Type Labor Anesthesia Weeks Gestation Incision Type Labor Labor Length Hrs Delivered By Post Complications Tubal Sterilization Discharge Date Comments 7 Induce d None 40.[address] Walton None false Discharge Information Feeding Method Contraceptive Method Maternal HG B and HCT Levels Combination
[2024-09-20 04:29] VITALS: BMI 33.7
--- NOTE | 2024-09-20 04:29 | OBADM ---
This patient, Nancy Byrne, admitted to the OB room Labor/Delivery/Recovery 107 for observation. Patient/family oriented to hospital policies and general routines including ID bracelet, bed and alarms, visiting hours, pain management, procedures, bathroom and other care routines, personal items, smoking policy, room service/diet, and visiting hours. Patient/Family are encouraged to report perceived risks to care and to ask questions if they do not understand what they are told or what they should do.
--- NOTE | 2024-09-22 07:07 | PM.OBTRLD ---
OB - Triage/Final Diagnosis Visit Information Date of evaluation: 09/19/24 Reason for evaluation: threatened labor Comments/Additional reasons for admission: I have assessed the risk for this patient, Nancy Byrne, and determined that she would benefit from observation care.
== END 2024-09-20 04:45 | disposition home or self-care (01) ==
PROVIDERS: Admitting Provider Obstetrics & Gynecology; Visit Provider Obstetrics & Gynecology
DX: O47.1 False labor at or after 37 completed weeks of gestation (principal); Z3A.39 39 weeks gestation of pregnancy
CPT/HCPCS: G0378; G0379

== ENCOUNTER 2024-09-21 21:36 | Inpatient (IN) | payer OTHER, SELFPAY ==
--- OUTSIDE RECORDS SUMMARY | 2024-09-21 21:40 | XMS_ITS | Clinical Summary ---
Author Organization [facility] Care Team Providers Care Field Sales Associate Name Role Phone Unavailable Primary Care Provider Unavailabl e Social History Tobacco Use Types Packs/Day Years Used Date Smoking Tobacco: Never Assessed Comments Unknown Sex and Gender Information Value Date Recorded Sex Assigned at Not on file Legal Sex Female 12:37 PM [employer] Gender Identity Not on file Sexual Orientation [...]
--- OUTSIDE RECORDS SUMMARY | 2024-09-21 21:40 | XMS_ITS | Continuity of Care Document ---
Author Organization [employer] [facility] Address [address] [place] [address] Phone Care Team Providers Care Slip Caster Name Role Phone Management, Case Unavailable Unavailable [...] Diagnoses Date Provider Providers Copied on Encounter [employer] [facility] , [address], [place], [place], [id number], [place] tel:[phone] [facility] No Information Management Case. [address], [place], [place], [address], [place]. tel:[phone] Referring Provider: Sita Hudson, [address], [place], [address]. tel:[phone] lting Provider: Maribel Leo, [address], [place], [address]. tel:[phone] OFFICE OUTPT EST 25 MIN [facility] , [address], [place], [place], [address] [place] [address], [place] tel:[phone] [facility] routine (chief complaint) Encntr for suprvsn of normal first preg, second [id number] weeks gestation of Tristan Sita. [address], [place], [place], [address], [place]. tel:[phone] Referring Provider: Sita Albrightegan, [address], [place], [address]. tel:[phone] [facility] , [address], [place], [place], [address], [place] tel:[phone] [facility] [place] No Information Aldo Barlow. [address], [place], [address] [place] [address], [place]. tel:[phone] Referring Provider: Yen Carlson, [address], [place], [address]. tel:[phone] [employer] [facility] , [address], [place], [place], [address], [place] tel:[phone] [facility] routine (chief complaint) Encntr for suprvsn of normal first preg, first [id number] weeks gestation of Management Case. [address], [place], [place], [address], [place]. tel:[phone] Referring Provider: Bharathi Elizalde, [address], [place], [address]. tel:[phone] lting Provider: Maribel Leo, [address], [place], [address]. tel:[phone] [facility] , [address], [place], [place], [address], [place] tel:[phone] [facility] [place] Encounter for test, result unknown Tristan Buckner. [address], [place], [place], [address], [place]. tel:[phone] Referring Provider: Registered Nurse, [address], [place], [address]. tel:[phone] lting Provider: Freddie Aggarwal [address], [place], [address]. tel:[phone] Family History Family Member Type Diagnosis Age At Onset No Information Payers Payer name Insurance type Covered libertarian ID Authoriza tion(s) No Information Social History [...] routine 11/01/15 PN intak e completed at [facility] with 20yo g1 at 13 2/7 wks by LMP 07/31/15, EDC 05/06/16. Bahraini speaking. RF99 Lives with partner, family supportive. See scanned documents for more information. Referred to [facility], WIC, gordoning. class teaching reviewed as follows; anticipated course [...]
--- OUTSIDE RECORDS SUMMARY | 2024-09-21 21:40 | XMS_ITS | Clinical Summary ---
Author Organization [facility] Address [address] [place] [address] Care Team Providers Care Field Artillery Cannoneer Name Role Phone Trace Holland MD Primary Care Provider [phone] Source Comments [facility],non-owned Affiliates and Associated Physician Practices is amultiple site organization consisting of ambulatory clinics and hospital sitesin [place], [place], [place] and [place]. This disclosure is being madepursuant to the Care Everywhere program and may not contain all information available regarding this patient. Last updated 18.[facility] Allergies No known active allergies Medications [...] migh t be different from the original. [facility] 01/2016 Problem Noted Date Diagnosed Date Uterine [...] CDT Oxygen Saturation 100% 03/09/2014 5:56 PM INFORMATICS SCIENTIST Inhaled Oxygen Concentration - - Weight 67.1 [...] SCREEN ACUTE (02/21/2016 3:41 PM CDT) Pathologist [facility] HAV Antibody IgM Non Reactive Non Reactive 02/21/2016 5:01 PM CDT [facility] HBsAg Non Reactive Non Reactive 02/21/2016 5:01 PM CDT [facility] HBc Antibody IgM Non Reactive Non Reactive 02/21/2016 5:01 PM CDT [facility] HCV Antibody Screen Non Reactive Non Reactive 02/21/2016 5:01 PM CDT [facility] HCV S/C Ratio 0.06 0.00 - 0.79 02/21/2016 5:01 PM CDT [facility] Comment: Aoqrcx-qb-dvsodj ratio (S/CO) <0.80: Non Reactive Blood BLOOD SPECIMEN / Unknown 02/21/2016 3:41 PM CDT 02/21/2016 3:58 PM CDT Narrative [facility] - 02/21/2016 5:01 PM CDT Non Reactive - Antibodies to Hepatitis C virus (HCV) were not detected, result does not exclude early acute HCV infection. Non Reactive - Antibodies to Hepatitis C virus (HCV) were not detected, result does not exclude early acute HCV infection. us Shelly Mars MD LAB - CHEMISTRY ORDERABLES nal Result Performing Organization Address [facility] Co de Phone Number [facility] [address] [place] [id number] * GLUCOSE CHALLENGE (02/21/2016 3:32 PM CDT) Pathologist [facility] Glucose Challenge 130 64 - 140 mg/dL 02/21/2016 4:43 PM CDT [facility] Glucose Challenge Time 02/21/2016 4:43 PM CDT [facility] Blood BLOOD SPECIMEN / Unknown Venipuncture / Unknown 02/21/2016 3:32 PM CDT 02/21/2016 3:45 PM CDT us Shelly Mars MD LAB - CHEMISTRY ORDERABLES Fi nal Result Performing Organization Address City/[facility] Co de Phone Number [facility] [address] [place], [place] [id number] from Last 3 Months or Most Recently Relevant to Health Maintenance Insurance MEDICAID [facility] Care Teams Field Artillery Cannoneer Relationship Specialty Start Date End Date Trace Holland MD [address] [address] PCP - General 02/14/22
--- OUTSIDE RECORDS SUMMARY | 2024-09-21 21:40 | XMS_ITS | Data Portability ---
Author Organization [facility] [place] Address [address] [place] [place] [address] Assessment Encounter Date Assessment Date Assessment LastModified by Organization Details LastModified Time 09/15/2024 09/15/2024 Patient is ___weeks . Discussed plan. [email or web address] Not available 09/15/2024 11:34:06 Plan of Treatment Reminders Order Date Submit Date Provider Last Modified By Organization Details Last Modified Time Details Appointments INDUCTION 2024 04:00P Jacqueline Loyola CNM Not available Not available Not available OB ROUTINE 2024 10:45A Jacqueline Loyola CNM Not available Not available Not available Lab None recorded. Referral None recorded. Procedures None recorded. Surgeries None recorded. Imaging US, obstetric , biophysic al profile + non-stres s test 2024 025 [email or web address] [facility] [place], [address], [place], [address], 09/15/2024 13:27:35 non-stres s test 2024 025 [facility], [address], [place], [address], 09/16/2024 09:10:12 US, obstetric , follow-up 2024 025 [email or web address] [facility], [address], [place], [address], 09/07/2024 22:02:45 Medication Orders None recorded. Patient TargetsNo targets recorded. Patient InstructionsNo instructions recorded. Reason for Referral None Reported. Results Created Date Observation Date Name Description Value Unit Range Abnormal Flag Note LastModifiedBy Organization Detail LastModifiedTime 09/08/1909/07/2024 CBC W/DIF F WBC 8.1 10'3/ uL 3.5-10 .5 Not Available [facility] (Lab) [address], [place], [address], 09/08/2024 11:10:17 09/08/1909/07/2024 CBC W/DIF F RBC 3.90 10'6/ uL (based on docume nted legal sex) 3.80-5 .20 Not Available [facility] (Lab) [address], [place], [address], 09/08/2024 11:10:17 09/08/19 25 09/07/2024 CBC W/DIF F HGB 9.0 g/dL (based on docume nted legal sex) 11.6-1 5.4 low Not Available [facility] (Lab) [address], [place], [address], 09/08/2024 11:10:17 09/08/19 25 09/07/2024 CBC W/DIF F HCT 30.0 % (based on docume nted legal sex) 34.0-4 5.0 low Not Available [facility] (Lab) [address] [place], [address], 09/08/2024 11:10:17 09/08/1909/07/2024 CBC W/DIF F MCV 76.9 fL 80.0-9 9.0 low Not Available [facility] (Lab) [address] [place], [address], 09/08/2024 11:10:17 09/08/1909/07/2024 CBC W/DIF F MCH 23.1 pg 27.0-3 4.0 low Not Available [facility] (Lab) [address] [place], [address], 09/08/2024 11:10:17 09/08/19 25 09/07/2024 CBC W/DIF F MCHC 30.0 g/dL 32.0-3 5.5 low Not Available [facility] (Lab) [address] [facility], [place], [address], 09/08/2024 11:10:17 09/08/19 25 09/07/2024 CBC W/DIF F RDW 15.7 % 11.0-1 5.0 high Not Available [facility] (Lab) [address] [facility], [place], [address], 09/08/2024 11:10:17 09/08/19 25 09/07/2024 CBC W/DIF F plt 219 10'3/ uL 150-40 0 Not Available [facility] (Lab) [address] [facility], [place], [address], 09/08/2024 11:10:17 09/08/19 25 09/07/2024 CBC W/DIF F MPV 11.3 fL 8.8-12 .1 Not Available [facility] (Lab) [address] [facility], [place], [address], 09/08/2024 11:10:17 09/08/19 25 09/07/2024 CBC W/DIF F NRBC's 0.0 % 0.0 Not Available [facility] (Lab) [address] [facility], [place], [address], 09/08/2024 11:10:17 09/08/19 25 09/07/2024 CBC W/DIF F absolute NRBCs 0.0 10'3/ uL no refere nce range establ ished Not Available [facility] (Lab) [address] [facility], [place], [address], 09/08/2024 11:10:17 09/08/19 25 09/07/2024 CBC W/DIF F neutrophils 60.9 % 34.0-7 3.0 Not Available [facility] (Lab) [address] [facility], [place], [address], 09/08/2024 11:10:17 09/08/19 25 09/07/2024 CBC W/DIF F lymphocytes 26.5 % 15.0-5 0.0 Not Available [facility] (Lab) [address] [facility], [place], [address], 09/08/2024 11:10:17 09/08/19 25 09/07/2024 CBC W/DIF F monocytes 10.6 % 1.0-15 .0 Not Available [facility] (Lab) [address] [facility], [place], [address], 09/08/2024 11:10:17 09/08/19 25 09/07/2024 CBC W/DIF F eosinophils 0.9 % 0.0-8. 0 Not Available [facility] (Lab) [address] [facility], [place], [address], 09/08/2024 11:10:17 09/08/19 25 09/07/2024 CBC W/DIF F basophils 0.4 % 0.0-2. 0 Not Available [facility] (Lab) [address] [facility], [place], [address], 09/08/2024 11:10:17 09/08/19 25 09/07/2024 CBC W/DIF [...] separ ately if prese nt. Not Available [facility] (Lab) [address] [facility], [place], [address], 09/08/2024 11:10:17 09/08/19 25 09/07/2024 CBC W/DIF F absolute neutrophils 5.0 10'3/ uL 1.5-8. 0 Not Available [facility] (Lab) [address] [facility], [place], [address], 09/08/2024 11:10:17 09/08/1909/07/2024 CBC W/DIF F absolute lymphocytes 2.2 10'3/ uL 1.0-4. 0 Not Available [facility] (Lab) [address] [facility], [place], [address], 09/08/2024 11:10:17 09/08/1909/07/2024 CBC W/DIF F absolute monocytes 0.9 10'3/ uL 0.2-1. 0 Not Available [facility] (Lab) [address] [facility], [place], [address], 09/08/2024 11:10:17 09/08/19 25 09/07/2024 CBC W/DIF F absolute eosinophils 0.1 10'3/ uL 0.0-0. 6 Not Available [facility] (Lab) [address] [facility], [place], [address], 09/08/2024 11:10:17 09/08/1909/07/2024 CBC W/DIF F absolute basophils 0.0 10'3/ uL 0.0-0. 3 Not Available [facility] (Lab) [address] [place], [address], 09/08/2024 11:10:17 09/08/1909/07/2024 CBC W/DIF F absolute immature granulocytes 0.1 10'3/ uL 0.00-0 .10 Refer ence range s for nonbi nary/ inter sex or unspe cifie d gende r patie nts have not been estab lishe d. Pleas e refer to the angi palma table for range s estab lishe d for cisge nder patie nts and evalu ate in the clini joseph arlin xt of the indiv idual patie nt: [email or web address] :[email or web address] [email or web address] book. nm.or g/gen derx Not Available [facility] (Lab) [address], [place], [address], 09/08/2024 11:10:17 09/08/19 25 09/07/2024 TYPE/ RH/SC REEN ABO/Rh type O POS Not Available [facility] (Lab) [address], [place], [address], 09/08/2024 11:10:18 09/08/19 25 09/07/2024 TYPE/ RH/SC REEN antibody screen NEG Not Available [facility] (Lab) [address], [place], [address], 09/08/2024 11:10:18 09/08/19 25 09/07/2024 TYPE/ RH/SC REEN exp date 2024 23:59 Not Available [facility] (Lab) [address], [place], [address], 09/08/2024 11:10:18 09/08/19 25 09/07/2024 HEMOG LOBIN [...] >8.0% Actio n sugge sted Not Available [facility] (Lab) [address], [place], [address], 09/08/2024 11:10:18 09/08/1909/07/2024 HIV 1/2 ANTIG EN/AN TIBOD Y, REFLE X CONFI RMATI ON HIV antigen/anti body Nonrea ctive nonrea ctive HIV-1 antig en and HIV-1 /HIV- 2 antib odies were not detec curtis. No labor atory evide nce of HIV infec tion. Not Available [facility] (Lab) [address] [facility], [place], [address], 09/08/2024 11:10:19 09/08/19 25 09/07/2024 HEPAT ITIS C ANTIB ALEKSANDR SCREE N, REFLE X TO CONFI RMATI ON hepatitis C antibody Non-re active non-re active Antib odies to HCV Not Detec curtis, does not exclu de the possi bilit y of expos ure to HCV. Not Available [facility] (Lab) [address] [facility], [place], [address], 09/08/2024 11:10:19 09/08/1909/07/2024 HEPAT ITIS B SURFA CE ANTIG EN hepatitis B surface antigen Non-re active non-re active This assay was perfo rmed using [employer] ratio n reage nts and test kits. Value s obtai hamlet with other assay metho ds or kits canno t be used inter flowers eably . Not Available [facility] (Lab) [address] [facility], [place], [address], 09/08/2024 11:10:19 09/08/19 25 09/07/2024 RUBEL LA IGG ANTIB ALEKSANDR, QUANT rubella antibodies, IgG Reacti ve reacti ve Not Available [facility] (Lab) [address] [place], [address], 09/08/2024 11:10:20 09/08/19 25 09/07/2024 RUBEL LA IGG ANTIB ALEKSANDR, QUANT rubella antibodies, IgG quant 45.8 IU/mL >=10 Non-r eacti ve (Non- Immun e) <10 IU/mL React dilma (Immu ne) > or = 10 IU/mL Not Available [facility] (Lab) [address] [place], [address], 09/08/2024 11:10:20 09/08/19 25 09/07/2024 RPR SCREE N, REFLE X TITER /CONF IRMAT ION RPR qualitative Nonrea ctive nonrea ctive Not Available [facility] (Lab) [address] [facility], [place], [address], 09/08/2024 11:10:20 09/08/19 25 09/07/2024 CT/GC AND TRICH OMONA S VAGIN RADHA (RRNA ), URINE chlamydia trachomatis, PCR Negati ve negati ve Not Available [facility] (Lab) [address] [facility], [place], [address], 09/10/2024 15:02:53 09/08/19 25 09/07/2024 CT/GC AND TRICH OMONA S VAGIN RADHA (RRNA ), URINE neisseria gonorrhoeae, PCR Negati ve negati ve Not Available [facility] (Lab) [address] [place], [address], 09/10/2024 15:02:53 09/08/19 25 09/07/2024 CT/GC AND TRICH OMONA S VAGIN RADHA (RRNA ), URINE trichomonas vaginalis ribosomal RNA (rrna) Negati ve negati ve Not Available [facility] (Lab) [address] [place], [address], 09/10/2024 15:02:53 09/08/19 25 09/07/2024 CULTU RE: URINE result report SEE RESULT S BELOW Test: Cultu re: Urine Speci men Sourc e: Urine - Clean Catch Speci men Type: Urine Speci men Date: 2024 1327 Resul t Date: 2024 0503 Resul t Statu s: Final resul t Abnor mal: No Resul ting Lab: [facility] [address] [facility] [address] Tel: CULTU RE ----- ----- ----- --- No growt h in 1 day (dete ction level of 10,00 0 colon ies / ml.) Not Available [facility] (Lab) [address] [facility], [place], [address], 09/10/2024 15:02:54 09/08/19 25 09/07/2024 CULTU RE: GROUP B STREP SCREE N, REFLE X SUSCE PTIBI LITY result report SEE RESULT S BELOW Test: Cultu re: Group B Strep , Refle x Susce ptibi lity ([facility]/ [facility] ) Speci men Sourc e: Vagin a/Rec ela Speci men Type: Vagin al/Re ctal Speci men Date: 2024 1327 Resul t Date: 2024 1359 Resul t Statu s: Final resul t Abnor mal: No Resul ting Lab: [facility] [address] [facility] [address] Tel: CULTU RE ----- ----- ----- --- No Group B strep isola curtis at 2 days (david ctive broth enhan cemen t) Not Available [facility] (Lab) [address] [facility], [place], [address], 09/10/2024 15:02:54 09/08/19 25 09/07/2024 drug scree n, urine Amphetamines : negati ve Not Available [facility] [address], [place], [address], 09/07/2024 12:59:52 09/08/19 25 09/07/2024 drug scree n, urine Cannabinoids : negati ve Not Available [facility] [address], [place], [address], 09/07/2024 12:59:52 09/08/19 25 09/07/2024 drug scree n, urine Cocaine: negati ve Not Available [facility] [address], [place], [address], 09/07/2024 12:59:52 09/08/19 25 09/07/2024 drug scree n, urine Opiates: negati ve Not Available [facility] [address], [place], [address], 09/07/2024 12:59:52 09/08/19 25 09/07/2024 drug scree n, urine Phenocyclidi ne: negati ve Not Available [facility] [address], [place], [address], 09/07/2024 12:59:52 09/08/19 25 09/07/2024 drug scree n, urine Barbiturates : negati ve Not Available [facility] [address], [place], [address], 09/07/2024 12:59:52 09/08/19 25 09/07/2024 drug scree n, urine Benzodiazepi karlo: negati ve Not Available [facility] [address], [place], [address], 09/07/2024 12:59:52 09/08/19 25 09/07/2024 drug scree n, urine Ethanol: negati ve Not Available [facility] [address], [place], [address], 09/07/2024 12:59:52 09/08/19 25 09/07/2024 drug scree n, urine Hallucinogen s: negati ve Not Available [facility] [address], [place], [address], 09/07/2024 12:59:52 09/08/19 25 09/07/2024 drug scree n, urine Inhalants: negati ve Not Available [facility] [address], [place], [address], 09/07/2024 12:59:52 09/08/19 25 09/07/2024 drug scree n, urine Anabolic Steroids: negati ve Not Available [facility] [address], [place], [address], 09/07/2024 12:59:52 09/08/19 25 09/07/2024 drug scree n, urine Other: negati ve Not Available [facility] [address], [place], [address], 09/07/2024 12:59:52 09/08/19 25 09/07/2024 US, obste tric, follo w-up No observ ation record ed. [email or web address] [facility] [address], [place], [address], 09/07/2024 12:03:04 09/08/19 25 09/07/2024 US, obste tric, follo w-up No observ ation record ed. [email or web address] [address] [facility], [place], [address], 09/07/2024 11:56:56 09/16/19 25 09/15/2024 non-s tress test No observ ation record ed. [email or web address] [facility] [address], [place], [address], 09/16/2024 18:26:10 09/16/19 25 non-s tress test No observ ation record ed. [email or web address] [facility] [address], [place], [address], 09/15/2024 11:25:07 09/16/19 25 09/15/2024 US, obstkaiden tric, bioph ysica l profi le + non-s tress test No observ ation record ed. [email or web address] [facility] [address], [place], [address], 09/15/2024 11:35:30 09/16/19 25 09/15/2024 US, obste tric, follo w-up No observ ation record ed. [email or web address] [address], [place], [address], 09/16/2024 09:46:10 Result Notes None recorded. Problems Name Problem SNOMED Code Status Onset Date Resolution Date Notes Provider Name and Address Organization Details Recorded Time Pregnanc y 14589577 Completed 202209/26/[address] [facility] 5 08:54:56 High hemoglob in A1c level 390065182 Completed 6.1 - early 1hr WNL, GTT NL Lizzeth Logn [facility] 4 10:42:57 Pica 66270187 Completed coffee grounds, [facility] 4 10:42:57 Anemia 557494285 Completed severe- Iron Infusion referral sent 06/[address] [facility] 4 10:42:57 Late entry into care 284919528 Active [address] [facility] 5 08:58:18 Pregnanc y 01758842 Active [address] [facility] 5 08:54:56 History of anemia 803754539 Active 2024 Enedelia Good [facility], [facility] 5 08:57:56 Late entry into care 413675141 Active [address] [facility] 5 08:58:18 History of chlamydi al infectio n 546463346 Active 2024 Ramonita Loyola, [facility] [address], [place], [address], [facility] 5 09:26:29 High hemoglob in A1c level 078551045 Active 2024 6.0 checking bs QID antenata l testing 39wk Fely Jeffery [facility], [facility] 5 09:04:05 Problem Notes None recorded. Medical Equipment None Reported. [...] index (BMI) Body weight Body weight Systolic And Diastolic Systolic And Diastolic Provider Name and Address Organization Details Last Updated DateTime 5 160.02 cm 32.9 kg/m2 99390.1 8 g 41909.1 8082 g 110/73 mm[Hg] 110/73 mm[Hg] Enedelia Good [facility] 5 08:58:43 Date Recorded Body weight Body mass index (BMI) Body height Systolic And Diastolic Provider Name and Address Organization Details Last Updated DateTime 09/15/2024 56599.773 19 g 33.1 kg/m2 160.02 cm 114/79 mm[Hg] Enedelia Good [facility] 09/15/2024 11:34:40 Date Recorded Body weight Systolic And Diastolic Provider Name and Address Organization Details Last Updated DateTime 09/15/2024 59707.86441 g 114/79 mm[Hg] Palak Neff [facility] 09/15/2024 11:19:21 Social History Question Answer Notes LastModified by Organizat ion Details LastModified Time Tobacco Smoking Status Former Smoker Enedelia ryan, [facility] 06/19/2023 15:18:41 If You Are , What Was Your Level Of Alcohol Consumption Prior To ? Occasional Information not available 06/19/2023 Are You Blind Or Do You Have Difficulty Seeing? No [email or web address] Information not available 06/19/2023 What Is Your Level Of Caffeine Consumption? Occasional [email or web address] Information not available 06/19/2023 In The 14 Days Before Symptom Onset, Have You Had Close Contact With A Laboratory-confir med COVID-19 While That Case Was Ill? No [email or web address] Information not available 06/19/2023 In The 14 Days Before Symptom Onset, Have You Had Close Contact With A Person Who Is Under Investigation For COVID-19 While That Person Was Ill? No [email or web address] Information not available 06/19/2023 Have You Been To An Area Known To Be High Risk For COVID-19? No [email or web address] Information not available 06/19/2023 Are You Deaf Or Do You Have Serious Difficulty Hearing? No [email or web address] Information not available 06/19/2023 What Type Of Diet Are You Following? REGULAR Information not available 06/19/2023 Do You Use Your Seat Belt Or Car Seat Routinely? Yes [email or web address] Information not available 06/19/2023 Do You Have Smoke And Carbon Monoxide Detectors In Your Home? Yes [email or web address] Information not available 06/19/2023 Do You Use Sunscreen Routinely? Yes [email or web address] Information not available 06/19/2023 Has Tobacco Cessation Counseling Been Provided? No Information not available 06/19/2023 Do You Have Difficulty Walking Or Climbing Stairs? No [email or web address] Information not available 06/19/2023 Sex: Unknown Functional Status Question Answer Note LastModified by Organizat ion Details LastModified Time Do you use any illicit or recreational drugs? No [email or web address] Information not available 06/19/2023 Do you or have you ever used any other forms of tobacco or nicotine? No [email or web address] Information not available 06/19/2023 What is your level of alcohol consumption? None [email or web address] Information not available 06/19/2023 Are you able to walk? YESWOREST [email or web address] Information not available 06/19/2023 Are you able to care for yourself? Yes [email or web address] Information n ot available 06/19/2023 Do you have difficulty dressing or bathing? No [email or web address] Information not available 06/19/2023 What is your exercise level? Occasional [email or web address] Information not available 06/19/2023 Mental Status Question Answer Note LastModified by Organization D etails LastModified Time Do you feel stressed (tense, restless, nervous, or anxious, or unable to sleep at night)? [id number] [email or web address] Information not available 06/19/2023 Family History Nothing Reported. Medical History Condition Response Allergies (Food, seasonal, environmental ) N Other Y Drug/Latex Allergies/Reactions N Breast Cancer N Blood Transfusion N Lung Disease N [...] Neurologic/Epilepsy N Endometriosis N High Cholesterol N Headaches N Fibromyalgia N Kidney Disease N Heart Problems N Thyroid Problems N Kidney or Bladder Problems N GI Problems Y Eating Disorder [...] SNOMED-CT Code Diagnosis ICD10 Code Diagnosis Note [id number] Micheal Kelly MD [facility] [address] [address] 03/27/2023 14:46:26 03/27/2023 15:58:35 screening 356485609 Z36.87 O26.843 Z3A.15 [id number] Micheal Kelly MD [facility] [address],[place] [address] 03/27/2023 14:58:21 03/27/2023 16:36:44 Routine care 571486516 Z34.90 [id number] MD Megan Lowe [address],[place] [address] 04/24/2023 14:20:57 04/24/2023 16:01:33 screening for malformation 880068856 Z36.3 Z3A.19 [id number] MD Megan Lowe [address],[place] [address] 04/24/2023 14:22:06 04/24/2023 16:31:49 Serum thyroid stimulating hormone level outside reference range 147270535 R89.1 Routine an tenatal care 062965978 Z34.90 [id number] Micheal Kelly MD [facility] [address],[place] [address] 05/22/2023 15:06:10 05/22/2023 15:51:13 Routine care 885667611 Z34.90 [id number] Micheal Kelly MD [facility] [address],[place] [address] 06/19/2023 15:06:32 06/19/2023 15:56:08 Routine care 982021992 Z34.90 [id number] Ramonita Loyola, [facility] [address],[place] [address] 07/04/2023 12:20:31 07/04/2023 13:06:20 Routine care 618530337 Z34.83 [id number] Micheal Kelly MD [facility] [address],[place] [address] 07/25/2023 11:55:05 07/25/2023 12:40:32 Routine care 780939761 Z34.90 [id number] Micheal Kelly MD [facility] [address],[place] [address] 07/31/2023 10:59:22 07/31/2023 11:34:00 Anemia of 46711257 O99.019 Z3A.33 [id number] Micheal Kelly MD [facility] [address],[place] [address] 08/08/2023 12:10:10 08/08/2023 12:29:21 Routine care 588741628 Z34.90 [id number] Micheal Kelly MD [facility] [address],[place] [address] 08/29/2023 10:59:15 08/29/2023 11:46:05 Routine care 722594763 Z34.90 [id number] Micheal Kelly MD [facility] [address],[place] [address] 09/17/2023 17:29:13 09/17/2023 18:22:23 Routine care 657757441 Z34.90 [id number] Micheal Kelly MD [facility] [address],[place] [address] 09/30/2023 16:57:51 10/01/2023 03:16:48 management 075831430 Z39.1 Pt here for consult. Pt delivered a full term on 09/21/23. Pt states the infant breast fed several times during her post hospital stay but has refused to latch since they were discharged . Pt states the infant has not latched and breastfed successful ly since 09/23/23 and she has been unable to pump because the pump from [employer] does not turn on. Pt states the [...] initially taking a bottle. Pt states the infant sucks differentl y than her other children but eventually coordinate s his suck and takes 3 ounces of formula. Pt does not appear to have a lip tie or a tongue tie. Pt sucked a bottle successful ly and was put to breast. Pt had an appropriat e hold and to the breast with a wide open mouth. to breast well but did not latch or suckle at the breast. Pt's nipple is inverted and the simply sat with the pt's nipple in his mouth but did not nurse. Pt informed the is not stimulated to suck because he does not feel her nipple on the roof of his mouth due to nipple shape. Pt provided with a new [employer] breast pump. Pt pumped and to breast again with the nipple pulled out but the still did not latch and nurse. Pt pumped for 15 minutes and got a small amount of milk. given expressed breast milk from the bottle. Pt instructed on pumping every 3 hours and pumping for only a short amount of time to pull the nipple out prior to attempting to breast feed. Pt verbalized understand ing. Pt will pump for several minutes every 3 hours, put the to breast, and pump for 15 minutes regardless of if the infant nurses or not so her breasts are stimulated more in attempt to increase her milk supply. Pt will encourage the infant to take a pacifier to help coordinate his suck and will continue to bottle feed the until he successful ly breast feeds. Pt will come to the office next week for follow up. Pt will call back with additional questions or concerns prior to her appt. Yen galvna, [employer] [facility] [id number] Micheal Kelly MD [facility] [address] [address] 06/15/2024 13:37:43 06/16/2024 06:23:35 screening for malformation 939406965 Z36.3 Z3A.25 [id number] Micheal Kelly MD [facility] [address] [address] 09/07/2024 11:16:19 09/07/2024 11:53:13 Insufficient care 8502621925 109 O09.33 Z3A.37 [id number] SWAPNA DobbinsLevi [facility] [address],[place] [address] 09/07/2024 11:17:13 09/08/2024 09:16:06 screening [id number] Z36.89 Candidiasis of vagina 72 887244 B37.31 care status 24 6475637 Z34.83 Bacterial disease screening 002144383 Z11.8 Gestation period, 37 weeks 74292859 Z3A.37 [id number] Ramonita Loyola CNM [facility] [address] [place] [address] 09/15/2024 10:40:14 09/15/2024 12:07:34 Gestation period, 39 weeks 90994585 Z3A.39 cont pnv [id number] [facility] [address],[place] [address] 09/15/2024 10:37:57 09/15/2024 11:36:16 High hemoglobin A1c level 460719173 R73.09 [id number] Micheal Kelly MD [facility] [address],[place] [address] 09/15/2024 10:44:17 09/15/2024 11:35:53 High risk 08643797 O09.33 Z3A.39 [id number] Ramonita Loyola [facility] [address],[place] [address] 09/21/2024 08:49:47 09/21/2024 13:39:49 Health Concerns Section Related Observation LastModified by Organization Detai ls LastModified Time None Recorded Concern Status LastModified by Organization Details LastModified Time None Recorded Advance Directives Directive None Recorded Payers Encounter Date Sequence Insurance Name Policy Number Policy Mark Covered Member ID Mark Member ID Guarantor Name 09/07/2024 1 [facility] ON OR AFTER 10/26/20 (MEDICAID REPLACEMENT - HMO) Nancy Byrne [id number] Nancy Byrne 09/15/2024 1 [facility] ON OR AFTER 10/26/20 (MEDICAID REPLACEMENT - HMO) Nancy Byrne [id number] Nancy Chavez 09/15/2024 1 [facility] ON OR AFTER 10/26/20 (MEDICAID REPLACEMENT - HMO) Nancy Byrne [id number] Nancy Byrne 09/15/2024 1 [facility] ON OR AFTER 10/26/20 (MEDICAID REPLACEMENT - HMO) Nancy Byrne [id number] Nancy Chavez 09/21/2024 1 [facility] ON OR AFTER 10/26/20 (MEDICAID REPLACEMENT - HMO) Nancy Byrne [id number] Nancy Byrne OBGyn Episode Ob Episode Information Episode Created Date Number of Fetuses Patient Bloodtype Patient rh Status Prepregnancy Weight lbs Domestic Partner Domestic Partner Phone Father Name Roll Plugger Machine Operator Status 03/27/20 23 1 CLOSED Fetus Data First Name Last Name Admitted to NICU Weight (g) Sex Living Outcome Pediatric Complications Fetus ID Race Codes Race Delivery Type 3175.14 4 F Full Term 60428 Vaginal Delivery Idris Calculation Initial Idris Date [...] Domestic Partner Domestic Partner Phone Father Name Roll Plugger Machine Operator Status 03/27/20 23 1 O Positive CLOSED Fetus Data First Name Last Name Admitted to NICU Weight (g) Sex Living Outcome Pediatric Complications Fetus ID Race Codes Race Delivery Type 3827.18 25 M true Full Term mec on ROM, thick/yellow 95427 Vaginal Delivery Problems Problem Notes Problem Name Start Date End Date Resolution Snomed Code Not e High hemoglobin A1c level 148693266 6.1 - early 1hr WNL, GTT NL Pica [id number] coffee radha unds, resolved after iron infusion Anemia 789872914 severe- Ir on Infusion referral sent 06/24 [...] Weight in lbs Pre/Post Dialysis Refused Weight 169.942665460352 BP Diastolic BP Location Tested BP Systolic [...] Weight in lbs Pre/Post Dialysis Refused Weight 171.678035315123 BP Diastolic BP Location Tested BP Systolic [...] Weight in lbs Pre/Post Dialysis Refused Weight 170.347686827323 BP Diastolic BP Location Tested BP Systolic [...] Weight in lbs Pre/Post Dialysis Refused Weight 174.27226193435 BP Diastolic BP Location Tested BP Systolic [...] Weight in lbs Pre/Post Dialysis Refused Weight 178.699250320140 BP Diastolic BP Location Tested BP Systolic [...] Weight in lbs Pre/Post Dialysis Refused Weight 177.294290056767 BP Diastolic BP Location Tested BP Systolic [...] Weight in lbs Pre/Post Dialysis Refused Weight 177.673190657465 BP Diastolic BP Location Tested BP Systolic [...] Weight in lbs Pre/Post Dialysis Refused Weight 180.952639272444 BP Diastolic BP Location Tested BP Systolic BP Type 67 L arm 103 sitting Fetus Heart Rate Present A 145 Fetus Movement A Yes Comments Patient c/o of [place] and pressure in lower abdomen , group B strep performed, cervix is posterior, could not reach. Flowsheet Date 09/17/2023 Bates Score Blood Edema Fundus Height Fundus Units Glucose Ketones Leukocytes Nitrite Labor Signs Protein Cervic Dilation Cervic Effacement Cervic Station neg none none trace Type Weight in lbs Pre/Post Dialysis Refused Weight 182.181091447815 BP Diastolic BP Location Tested BP Systolic [...] Estim ated Date of Delivery false Thalassemia (Chinese, Kiswahili, Mediterranean, Or Background): MCV < 80 false Neural Tube Defect (Meningomyelocele, Spina Bifi da, Or Anencephaly) false Congenital Heart Defect false Down Syndrome false Kirby-Sachs (eg, Mosque, Cajun, Korean-[place]) f alse Emily Disease false Sickle Cell Disease Or Trait () false Hemophilia Or Other Blood Disorders false Muscular Dystrophy false Cystic Fibrosis false [place]'s Chorea false Intellectual Disability/Autism false If Yes, [...] Post Complications Tubal Sterilization Discharge Date Comments [facility] 40.3 false Micheal Kelly MD Anemia,Hi gh hemoglobi n A1c level,Pic a Discharge Information Feeding Method Contraceptive Method Maternal HG B and HCT Levels Ob Episode Information Episode Created Date Number of Fetuses Patient Bloodtype Patient rh Status Prepregnancy Weight lbs Domestic Partner Domestic Partner Phone Father Name Roll Plugger Machine Operator Status 09/09/19 25 1 O Positive 182 Dominiq ue Cj OPEN Fetus Data First Name Last Name Admitted to NICU Weight (g) Sex Living Outcome Pediatric Complications Fetus ID Race Codes Race Delivery Type 40722 Problems Problem Notes Problem Name Start Date End Date Resolution Snomed Code Not e Late entry into care 09/08/2024 [id number] History of anemia 09/08/2024 634484798 High hemoglobin A1c level 09/15/2024 135800460 6.0 checking bs QID testing 39wk History of chlamydial infection 09/08/2024 733875025 Idris Calculation Initial Idris Date Initial Exam Date Initial Exam Provider Initial Ultrasound Date Last Menstrual Period Date Ultra Sound Weeks Gestation 09/22/2024 09/08/202406/15/2024 25 Eighteen To Twenty Week Idris Update Ultra Sound Date Fundal Height At Umbil Quickening Date Ultra Sound Latest Weeks Gestation Final Idris Confirmed By Final Idris Confirmed Date Final Idris Date Ultra Sound Latest Days Gestation 0 09/23/19 25 0 Pre-dion Flowsheet Flowsheet Date 09/07/2024 Bates Score Blood Edema Fundus Height Fundus Units Glucose Ketones Leukocytes Nitrite Labor Signs Protein Cervic Dilation Cervic Effacement Cervic Station neg trace none trace Type Weight in lbs Pre/Post Dialysis Refused 186.230773634500 BP Diastolic BP Location Tested BP Systolic BP Type 73 110 Fetus Heart Rate Present Fetus Movement Comments pt has not received any pren atal care since visit in may, efw 75% AC 98% no hx gdm, reviewed education and precautions. hx of 3 vaginal births, uncomplicated. plan labs, urine today encouraged f/u in one week, +FM bpp 12/03 Flowsheet Date 09/15/2024 Bates Score Blood Edema Fundus Height Fundus Units Glucose Ketones Leukocytes Nitrite Labor Signs Protein Cervic Dilation Cervic Effacement Cervic Station Type Weight in lbs Pre/Post Dialysis Refused 187.080858779678 BP Diastolic BP Location Tested BP Systolic BP Type 79 L arm 114 sitting Fetus Heart Rate Present Fetus Movement A Yes Comments Flowsheet Date 09/15/2024 Bates Score Blood Edema Fundus Height Fundus Units Glucose Ketones Leukocytes Nitrite Labor Signs Protein Cervic Dilation Cervic Effacement Cervic Station neg none Type Weight in lbs Pre/Post Dialysis Refused 187.572926809717 BP Diastolic BP Location Tested BP Systolic [...] Rate Present Fetus Movement Comments Flowsheet Date 09/21/2024 Bates Score Blood Edema Fundus Height Fundus [...] Domestic Partner Domestic Partner Phone Father Name Roll Plugger Machine Operator Status 03/27/20 23 1 CLOSED Fetus Data First Name Last Name Admitted to NICU Weight (g) Sex Living Outcome Pediatric Complications Fetus ID Race Codes Race Delivery Type 3175.14 4 M Full Term 31135 Vaginal Delivery Idris Calculation Initial Idris Date [...] Tubal Sterilization Discharge Date Comments 2 40 [facility] Discharge Information Feeding Method Contraceptive Method Maternal HG B and HCT Levels
--- OUTSIDE RECORDS SUMMARY | 2024-09-21 21:40 | XMS_ITS | Data Portability ---
[facility] Address [address] [place] [address] Care Team Providers Care Programmer Analyst Consultant Name Role Phone JUSTIN SAMUEL [employer] Assessment Encounter Date Assessment Date Assessment LastModified by Organization Details LastModified Time 02/01/2022 02/01/2022 Ifrah Jacobo PA-S Not available 02/01/2022 09:48:03 Plan of Treatment Reminders Order Date Submit Date Provider Last Modified By Organization Details Last Modified Time Details Appointments None recorded . Lab vaginal pathogen s panel, REAL+prob e, vaginal fluid 2021 [facility], [address], [address], [place], [address], 09:13:45 streptoc occus group B, culture, unspecif ied specimen 2021 [facility], [address], [address], [place], [address], 09:13:46 CBC w/ auto diff 2021 [facility], 2022 [address], [address], [place], [address], 09:13:46 urinalys is, dipstick 2021 [email or web address] In-Office Order, Internal Use Only DO Not Attach Compendium DO Not Attach Compendium, Do Not Delete/merge, [id number] 10:07:00 glucose toleranc e test, post-50G , 1-hour [address] [facility], 2022 [address] Moran, [address], [place], [address], 08:18:01 CBC w/ auto diff [address] [facility], 2022 [address], [address], [place], [address], 08:18:01 RPR (rapid plasma reagin), serum [address] [facility], 2022 [address], [address], [place], [address], 08:18:02 HIV 1 + 2, meaningf ul use set [address] [facility], 2022 [address], [address], [place], [address], 08:18:03 [email or web address] a trachoma tis + neisseri a gonorrho eae + trichomo dang vaginali s DNA panel, REAL+prob e, unspecif ied specimen [address] [facility], 2022 [address], [address], [place], [address], 20:08:00 chlamydi a trachoma tis + neisseri a gonorrho eae + trichomo dang vaginali s DNA panel, REAL+prob e, unspecif ied specimen [address] [facility], 2022 [address], [address], [place], [address], 16:09:20 urinalys is, dipstick 2021 [email or web address] In-Office Order, Internal Use Only DO Not Attach Compendium DO Not Attach Compendium, Do Not Delete/merge, [id number] 16:39:33 aneuploi dy risk and X & Y analysis , chromoso me specific circulat ing cell free (CCF) DNA, maternal serum 2021 [facility] , [address], [place], [address], 16:09:19 Referral None recorded . Procedures None recorded . Surgeries None recorded . Imaging US, obstetri c, biophysi joseph profile + non-stre ss test 2021 [facility], [address] [place] [address], [address], 12:44:37 US, doppler, umbilica l artery velocime try 2021 [facility], [address] [place] [address], [address], 12:44:37 US, obstetri c, 3rd trimeste r 2021 [facility], [address] [place] [address], [address], 12:44:37 Medication Orders Venofer 200 mg iron/10 mL intraven ous solution 2021 [facility], [address] [facility], [place], [address], 16:33:41 28 mg iron-800 mcg tablet 2021 [id number], [address] [facility], [place], [place], [id number], 16:09:31 ferrous sulfate 325 mg (65 mg iron) tablet 2021 [facility] #46052, [address], [place], [place], [id number], 16:09:30 ceftriax one 500 mg solution for injectio n 2021 [facility] #[id number], [address], [place], [place], [id number], 09:33:20 Patient TargetsNo targets recorded. Patient Instructions Encounter Date Encounter Id Patient Instructions Last Modified By Organization Details Last Modified Time 02/01/2022 [id number] counting your baby's kicks: care instructions Not available 02/01/2022 10:07:00 02/22/2022 [id number] High-risk OB? no EDC consistent with LMP?: no EDC confirmed with: 2nd trimester US Problem list UTD: yes Vitals reviewed and addressed if abnormal: yes Labs: ordered Plan for abnormal results documented: yes Anatomy scan: ordered scheduled normal abnormal abnormal, concerns for spine/renal abnormalties on folllowup appropriate and no additional followup per 02/11/22 GBS: positive position confirmed vertex by US: yes TdaP: UTD Flu vaccine: UTD Covid vaccine: declined Delivery plan documented: no Need for MFM or OB consult? no yes yes, MFM US, no additional followup Complete assessment and plan for all identified problems: yes Cosigner Name: MD Kyle. Second Sign: Bharathi Llanos MD per note pt requesting water need to confirm feasibiilty [place] [address] Not available 02/28/2022 16:34:08 02/28/2022 [id number] High-risk OB? no EDC consistent with LMP?: no EDC confirmed with: 2nd trimester US Problem list UTD: yes Vitals reviewed and addressed if abnormal: yes Labs: ordered normal ab normal abnormal, plans outlined Plan for abnormal results documented: yes Anatomy scan: ordered scheduled normal abnormal abnormal- followup appropriate GBS: positive position confirmed vertex by US: yes TdaP: UTD Flu vaccine: UTD Covid vaccine: declined Delivery plan documented: yes no discussed, but pending additional information Need for MFM or OB consult? no Complete assessment and plan for all identified problems: yes Cosigner Name: MD Kyle. 2nd signer, reviewed by oversight. agree with plan of care Lo Gupta MD [email or web address] Not available 03/01/2022 14:26:01 Reason for Referral None Reported. Results Created Date Observation Date Name Description Value Unit Range Abnormal Flag Note LastModifiedBy Organization Detail LastModifiedTime 11/28/19 22 12/01/2021 MATER NIT21 PLUS CORE gestation Single ton Not Available [facility] ([facility]) [address] [facility], [place], [address], 12/01/2021 16:09:19 11/28/19 22 12/01/2021 MATER NIT21 PLUS CORE fraction 7% Not Available [facility] ([facility]) [address] [facility], [place], [address], 12/01/2021 16:09:19 11/28/19 22 12/01/2021 MATER NIT21 PLUS CORE gestational age > or = 9W: Yes Not Available [facility] ([facility]) [address] [facility], [place], [address], 12/01/2021 16:09:19 11/28/19 22 12/01/2021 MATER NIT21 PLUS CORE test result Negati ve Not Available [facility] ([facility]) [address] [place], [address], 12/01/2021 16:09:19 11/28/19 22 12/01/2021 MATER NIT21 PLUS CORE 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 Clini joseph corre latio n is nisha do. Not Available [facility] ([facility]) [address] [facility], [place], [address], 12/01/2021 16:09:19 11/28/19 22 12/01/2021 MATER NIT21 PLUS CORE approved by Lily trent MD, PhD, [facility] tor, [place] [facility] Labor atori es Not Available [facility] ([facility]) [address] [place], [address], 12/01/2021 16:09:19 11/28/19 22 12/01/2021 MATER NIT21 PLUS CORE trisomy 21 (down syndrome) Negati ve Not Available [facility] ([facility]) [address] [place], [address], 12/01/2021 16:09:19 11/28/19 22 12/01/2021 MATER NIT21 PLUS CORE trisomy 18 (encarnacion syndrome) Negati ve Not Available [facility] ([facility] [address] [place], [address], 12/01/2021 16:09:19 11/28/19 22 12/01/2021 MATER NIT21 PLUS CORE trisomy 13 (patau syndrome) Negati ve Not Available [facility] ([facility]) [address] [place], [address], 12/01/2021 16:09:19 11/28/19 22 12/01/2021 MATER NIT21 PLUS CORE sex Lily yao Consi stent with Male Not Available [facility] ([facility]) [address] [place], [address], 12/01/2021 16:09:19 11/28/19 22 12/01/2021 MATER NIT21 PLUS CORE negative predictive value Note The Negat dilma Predi ctive Value (NPV) for triso my 21, 18, and 13 is great er than 99%. The NPV for SCA and ESS canno t be calcu lated as SCA and ESS are only repor curtis when an abnor malit y is detec curtis. Not Available [facility] ([facility]) [address] [place], [address], 12/01/2021 16:09:19 11/28/19 22 12/01/2021 MATER NIT21 PLUS CORE positive predictive value N/A Not Available [facility] ([facility] [address] [facility], [place], [address], 12/01/2021 16:09:19 11/28/19 22 12/01/2021 MATER NIT21 PLUS CORE about the test Commen t The Mater niT(R ) 21 PLUS labor atory -deve loped test (LDT) rkeha zes circu latin g cell- free DNA [...] yet been valid ated. Not Available [facility] ([facility] [address] [facility], [place], [address], 12/01/2021 16:09:19 11/28/19 22 12/01/2021 MATER NIT21 PLUS CORE test method Commen t Circu latin g cell- free DNA was purif ied from the plasm a compo nent of mater nal blood . The extra cted DNA was then conve rted into a qualifyor DNA gary ry for aneup loidy rekha [...] s 16 and 22. Not Available [facility] ([facility] [address] [facility], [place], [address], 12/01/2021 16:09:19 11/28/19 22 12/01/2021 MATER NIT21 PLUS CORE performance Commen t The perfo rmanc e kat cteri stics of the Mater niT(R ) 21 PLUS labor atory -deve loped test (LDT) have been deter mined in a clini joseph valid ation study with pregn ant women at incre ased risk for chrom osoma l aneup loidy .[1-4 ] Not Available [facility] ([facility] [address] [facility], [place], [address], 12/01/2021 16:09:19 11/28/19 22 12/01/2021 MATER NIT21 PLUS CORE performance characterist ics Note ----- ----- ----- ----- ----- ----- ----- ----- ----- ----- ----- ---- ! Sex ! Accur acy: 99.4% ! !---- ----- ----- ----- ----- ----- ----- ----- ----- ----- ----- ---! ! Antony n (shayla irwin syndr ome) ! Est. Sens# ! Est. Spec ! !---- ----- ----- ----- ----- ----- ----- ----- ----- ----- ----- ---! ! Triso my 21 (Down Syndr ome) ! 99.1% ! 99.9% ! !---- ----- ----- ----- ----- ----- ----- ----- ----- ----- ----- ---! ! Mendezo my 18 (Edwa rds Syndr ome) ! >99.9 % ! 99.6% ! !---- ----- ----- ----- ----- ----- ----- ----- ----- ----- ----- ---! ! Mendezo my 13 (Pata u Syndr ome) ! 91.7% ! 99.7% ! !---- ----- ----- ----- ----- ----- ----- ----- ----- ----- ----- ---! ! Sex Chrom osome Aneup loidi es## ! 96.2% ! 99.7% ! !---- ----- ----- ----- ----- ----- ----- ----- ----- ----- ----- ---! * As repor curtis in [employer] datab ase nstd3 7 [http s://w brannon.nc bi.nl .[facility] .gov/ dbvar /stud ies/n std37 / ] [...] ion bias, or seque nce bias. ## Bogdanl eton gesta tion only. Not Available [facility] ([facility] [address] [facility], [place], [address], 12/01/2021 16:09:19 11/28/19 22 12/01/2021 MATER NIT21 [...] ne(R) and Fragm in(R) ). Not Available [facility] [address] [facility], [place], [address], 12/01/2021 16:09:19 11/28/19 22 12/01/2021 MATER NIT21 PLUS CORE note [employer] is a subsi diary of Labor atory Corpo ratio n of [employer], using the brand [employer] This test was devel oped and its perfo rmanc e kat cteri stics deter mined by [employer]. It has not been clear ed or appro leo by the Food and Drug Admin istra tion. This labor atory is certi fied under the Clini joseph Labor atory Impro vemen t Amend ments (CLIA ) as quali fied to perfo rm high compl exity clini joseph labor atory testi ng and accre dited by the Orly saavedra of [employer] can Patho logis ts (CAP) . If there is futur e clini joseph need for addin g Mater niT GENOM E testi ng, this speci men will be avail able until term. [facility] sampl es will not be retai [place] beyon d 60 days. [facility] patie nts will have to send a new sampl e for re-se quenc ing ([facility] Test Code: 68263 4). Not Available [facility] ([facility] [address] [facility], [place], [address], 12/01/2021 16:09:19 11/28/19 22 12/01/2021 MATER NIT21 PLUS CORE references Commen t 1. Cuate SAAVEDRA, et al. [facility] Med. 2012; 14(3) :296- 305. 2. Blanca ANDERSON, et al. Prena t Diag. 2013; 33(6) :591- 597. 3. Jarrod C, et al. Clin Chem. 2015 Jul;6 1(4): 608-6 16. 4. Cuate SAAVEDRA, et al. [facility] Med. 2011; 13(11 ):913 -920. 5. ACOG/ SMFM Pract ice Bulle tin No. 226, Jan 2020. Not Available [facility] ([facility] [place] [facility] [address] [facility], [place], [address], 12/01/2021 16:09:19 11/28/19 22 12/01/2021 MATER NIT21 PLUS CORE pdf . Not Available [facility] ([facility] [address] [facility], [place], [address], 12/01/2021 16:09:19 11/28/19 22 11/29/2021 CT, NG, TRICH VAG BY REAL chlamydia by REAL Negati ve negati ve Not Available [facility] ([facility] [address] [facility], [place], [address], 12/01/2021 16:09:20 11/28/19 22 11/29/2021 CT, NG, TRICH VAG BY REAL gonococcus by REAL Positi ve negati ve abnormal Not Available [facility] ([facility] [address] [facility], [place], [address], 12/01/2021 16:09:20 11/28/19 22 11/29/2021 CT, NG, TRICH VAG BY REAL trich vag by REAL Negati ve negati ve Not Available [facility] ([facility] [address] [facility], [place], [address], 12/01/2021 16:09:20 11/28/19 22 11/27/2021 urina lysis , dipst ick Leukocytes Negati ve Not Available In-Office Order Internal Use Only DO Not Attach Compendium DO Not Attach Compendium, Do Not Delete/merge, [id number] 11/27/2021 15:54:27 11/28/19 22 11/27/2021 urina lysis , dipst ick Nitrite negati ve Not Available In-Office Order Internal Use Only DO Not Attach Compendium DO Not Attach Compendium, Do Not Delete/merge, [id number] 11/27/2021 15:54:27 11/28/19 22 11/27/2021 urina lysis , dipst ick Urobilinogen .2 Not Available In-Of fice Order Internal Use Only DO Not Attach Compendium DO Not Attach Compendium, Do Not Delete/merge, [id number] 11/27/2021 15:54:27 11/28/19 22 11/27/2021 urina lysis , dipst ick Protein Negati ve Not Available In-Office Order Internal Use Only DO Not Attach Compendium DO Not Attach Compendium, Do Not Delete/merge, [id number] 11/27/2021 15:54:27 11/28/19 22 11/27/2021 urina lysis , dipst ick pH 7.0 Not Available In-Office Order Internal Use Only DO Not Attach Compendium DO Not Attach Compendium, Do Not Delete/merge, [id number] 11/27/2021 15:54:27 11/28/19 22 11/27/2021 urina lysis , dipst ick Blood Negati ve Not Available In-Office Order Internal Use Only DO Not Attach Compendium DO Not Attach Compendium, Do Not Delete/merge, [id number] 11/27/2021 15:54:27 11/28/19 22 11/27/2021 urina lysis , dipst ick Specific Wilmer 1.020 Not Available In-Off ice Order Internal Use Only DO Not Attach Compendium DO Not Attach Compendium, Do Not Delete/merge, [id number] 11/27/2021 15:54:27 11/28/19 22 11/27/2021 urina lysis , dipst ick Ketone Trace Not Available In-Office Order Internal Use Only DO Not Attach Compendium DO Not Attach Compendium, Do Not Delete/merge, [id number] 11/27/2021 15:54:27 11/28/19 22 11/27/2021 urina lysis , dipst ick Bilirubin Negati ve Not Available In-Office Order Internal Use Only DO Not Attach Compendium DO Not Attach Compendium, Do Not Delete/merge, [id number] 11/27/2021 15:54:27 11/28/19 22 11/27/2021 urina lysis , dipst ick Glucose Negati ve Not Available In-Office Order Internal Use Only DO Not Attach Compendium DO Not Attach Compendium, Do Not Delete/merge, [id number] 11/27/2021 15:54:27 02/02/20 22 02/02/2022 GEST. DIABE [...] to 70 mg/dL . Not Available [facility] ([facility] [place] [facility] [address] [facility], [place], [address], 02/02/2022 08:18:01 02/02/20 22 02/02/2022 CBC WITH DIFFE RENTI AL/PL ATELE T WBC 7.6 x10e3 /uL 3.4-10 .8 Not Available [facility] ([facility] [address] [facility], [place], [address], 02/02/2022 08:18:01 02/02/20 22 02/02/2022 CBC WITH DIFFE RENTI AL/PL ATELE T RBC 3.72 x10e6 /uL 3.77-5 .28 below low normal Not Available [facility] ([facility] [address] [facility], [place], [address], 02/02/2022 08:18:01 02/02/20 22 02/02/2022 CBC WITH DIFFE RENTI AL/PL ATELE T hemoglobin 9.0 g/dL 11.1-1 5.9 below low normal Not Available [facility] ([facility] [address] [facility], [place], [address], 02/02/2022 08:18:01 02/02/20 22 02/02/2022 CBC WITH DIFFE RENTI AL/PL ATELE T hematocrit 28.8 % 34.0-4 6.6 below low normal Not Available [facility] ([facility] [address] [place], [address], 02/02/2022 08:18:01 02/02/20 22 02/02/2022 CBC WITH DIFFE RENTI AL/PL ATELE T MCV 77 fL 79-97 below low normal Not Available [facility] ([facility] [address] [place], [address], 02/02/2022 08:18:01 02/02/20 22 02/02/2022 CBC WITH DIFFE RENTI AL/PL ATELE T MCH 24.2 pg 26.6-3 3.0 below low normal Not Available [facility] ([facility] [address] [facility], [place], [address], 02/02/2022 08:18:01 02/02/20 22 02/02/2022 CBC WITH DIFFE RENTI AL/PL ATELE T MCHC 31.3 g/dL 31.5-3 5.7 below low normal Not Available [facility] ([facility] [address] [facility], [place], [address], 02/02/2022 08:18:01 02/02/20 22 02/02/2022 CBC WITH DIFFE RENTI AL/PL ATELE T RDW 14.1 % 11.7-1 5.4 Not Available [facility] ([facility] [address] [facility], [place], [address], 02/02/2022 08:18:01 02/02/20 22 02/02/2022 CBC WITH DIFFE RENTI AL/PL ATELE T platelets 256 x10e3 /uL 150-45 0 Not Available [facility] ([facility] [address] [facility], [place], [address], 02/02/2022 08:18:01 02/02/20 22 02/02/2022 CBC WITH DIFFE RENTI AL/PL ATELE T neutrophils 69 % notest ab. Not Available [facility] ([facility] [address] [place], [address], 02/02/2022 08:18:01 02/02/20 22 02/02/2022 CBC WITH DIFFE RENTI AL/PL ATELE T lymphs 22 % notest ab. Not Available [facility] ([facility] [address] [facility], [place], [address], 02/02/2022 08:18:01 02/02/20 22 02/02/2022 CBC WITH DIFFE RENTI AL/PL ATELE T monocytes 7 % notest ab. Not Available [facility] ([facility] [address] [facility], [place], [address], 02/02/2022 08:18:01 02/02/20 22 02/02/2022 CBC WITH DIFFE RENTI AL/PL ATELE T eos 1 % notest ab. Not Available [facility] ([facility] [address] [facility], [place], [address], 02/02/2022 08:18:01 02/02/20 22 02/02/2022 CBC WITH DIFFE RENTI AL/PL ATELE T basos 0 % notest ab. Not Available [facility] ([facility] [place] [facility] [address] [facility], [place], [address], 02/02/2022 08:18:01 02/02/20 22 02/02/2022 CBC WITH DIFFE RENTI AL/PL ATELE T neutrophils (absolute) 5.2 x10e3 /uL 1.4-7. 0 Not Available [facility] ([facility] [address] [facility], [place], [address], 02/02/2022 08:18:01 02/02/20 22 02/02/2022 CBC WITH DIFFE RENTI AL/PL ATELE T lymphs (absolute) 1.7 x10e3 /uL 0.7-3. 1 Not Available [facility] ([facility] [address] [facility], [place], [address], 02/02/2022 08:18:01 02/02/20 22 02/02/2022 CBC WITH DIFFE RENTI AL/PL ATELE T monocytes(ab solute) 0.5 x10e3 /uL 0.1-0. 9 Not Available [facility] ([facility] [address] [facility], [place], [address], 02/02/2022 08:18:01 02/02/20 22 02/02/2022 CBC WITH DIFFE RENTI AL/PL ATELE T eos (absolute) 0.0 x10e3 /uL 0.0-0. 4 Not Available [facility] ([facility] [address] [place], [address], 02/02/2022 08:18:01 02/02/20 22 02/02/2022 CBC WITH DIFFE RENTI AL/PL ATELE T baso (absolute) 0.0 x10e3 /uL 0.0-0. 2 Not Available [facility] ([facility] [address] [facility], [place], [address], 02/02/2022 08:18:01 02/02/20 22 02/02/2022 CBC WITH DIFFE RENTI AL/PL ATELE T immature granulocytes 1 % notest ab. Not Available [facility] ([facility] [address] [facility], [place], [address], 02/02/2022 08:18:01 02/02/20 22 02/02/2022 CBC WITH DIFFE RENTI AL/PL ATELE T immature grans (abs) 0.1 x10e3 /uL 0.0-0. 1 Not Available [facility] ([facility] [address] [place], [address], 02/02/2022 08:18:01 02/02/20 22 02/02/2022 RPR, RFX QN RPR/C ONFIR M TP RPR Non Reacti ve nonrea ctive Not Available [facility] ([facility] [address] [place], [address], 02/02/2022 08:18:02 02/02/20 22 02/02/2022 HIV AB/P2 4 AG WITH REFLE X HIV Ab/P24 Ag screen Non Reacti ve nonrea ctive HIV Negat dilma HIV-1 /HIV- 2 antib odies and HIV-1 p24 antig en were NOT detec curtis. There is no labor atory evide nce of HIV infec tion. Not Available [facility] ([facility] [address] [place], [address], 02/02/2022 08:18:02 02/02/20 22 02/04/2022 CT, NG, TRICH VAG BY REAL chlamydia by REAL Negati ve negati ve Not Available [facility] ([facility] [address] [facility], [place], [address], 02/04/2022 20:08:00 02/02/20 22 02/04/2022 CT, NG, TRICH VAG BY REAL gonococcus by REAL Negati ve negati ve Not Available [facility] ([facility] [address] [facility], [place], [address], 02/04/2022 20:08:00 02/02/20 22 02/04/2022 CT, NG, TRICH VAG BY REAL trich vag by REAL Positi ve negati ve abnormal Not Available [facility] ([facility] [address] [facility], [place], [address], 02/04/2022 20:08:00 02/02/20 22 02/01/2022 urina lysis , dipst ick Leukocytes Trace Not Available In-Offi ce Order Internal Use Only DO Not Attach Compendium DO Not Attach Compendium, Do Not Delete/merge, [id number] 02/01/2022 09:23:46 02/02/20 22 02/01/2022 urina lysis , dipst ick Nitrite negati ve Not Available In-Office Order Internal Use Only DO Not Attach Compendium DO Not Attach Compendium, Do Not Delete/merge, [id number] 02/01/2022 09:23:46 02/02/20 22 02/01/2022 urina lysis , dipst ick Urobilinogen .2 Not Available In-Of fice Order Internal Use Only DO Not Attach Compendium DO Not Attach Compendium, Do Not Delete/merge, [id number] 02/01/2022 09:23:46 02/02/20 22 02/01/2022 urina lysis , dipst ick Protein Negati ve Not Available In-Office Order Internal Use Only DO Not Attach Compendium DO Not Attach Compendium, Do Not Delete/merge, [id number] 02/01/2022 09:23:46 02/02/20 22 02/01/2022 urina lysis , dipst ick pH 8.5 Not Available In-Office Order Internal Use Only DO Not Attach Compendium DO Not Attach Compendium, Do Not Delete/merge, [id number] 02/01/2022 09:23:46 02/02/20 22 02/01/2022 urina lysis , dipst ick Blood Negati ve Not Available In-Office Order Internal Use Only DO Not Attach Compendium DO Not Attach Compendium, Do Not Delete/merge, [id number] 02/01/2022 09:23:46 02/02/20 22 02/01/2022 urina lysis , dipst ick Specific Wilmer 1.020 Not Available In-Off ice Order Internal Use Only DO Not Attach Compendium DO Not Attach Compendium, Do Not Delete/merge, [id number] 02/01/2022 09:23:46 02/02/20 22 02/01/2022 urina lysis , dipst ick Ketone Negati ve Not Available In-Office Order Internal Use Only DO Not Attach Compendium DO Not Attach Compendium, Do Not Delete/merge, [id number] 02/01/2022 09:23:46 02/02/20 22 02/01/2022 urina lysis , dipst ick Bilirubin Negati ve Not Available In-Office Order Internal Use Only DO Not Attach Compendium DO Not Attach Compendium, Do Not Delete/merge, [id number] 02/01/2022 09:23:46 02/02/20 22 02/01/2022 urina lysis , dipst ick Glucose Negati ve Not Available In-Office Order Internal Use Only DO Not Attach Compendium DO Not Attach Compendium, Do Not Delete/merge, [id number] 02/01/2022 09:23:46 02/09/20 22 02/08/2022 GESTA RADHA L 3 HOUR GTT-N [facility] note: Commen t Diagn osis of gesta radha l diabe moreno requi res that two or more high thres holds are excee ded. The silvana ance test is based on a 100 gm oral gluco se chall enge at 24 - 28 weeks of gesta tion. Not Available [facility] ([facility] [place] [place] [facility] [address] [place], [address], 02/09/2022 10:37:50 02/09/20 22 02/09/2022 GESTA RADHA L 3 HOUR GTT-N DDGC glucose - fasting 80 mg/dL 65-104 Not Available [facility] ([facility] [place] [place] [facility] [address] [place], [address], 02/09/2022 10:37:50 02/09/20 22 02/09/2022 GESTA RADHA L 3 HOUR GTT-N DDGC glucose - 1 hour 132 mg/dL 65-189 Not Available [facility] ([facility] [place] [place] [facility] [address] [facility], [place], [address], 02/09/2022 10:37:50 02/09/20 22 02/09/2022 GESTA RADHA L 3 HOUR GTT-N DDGC glucose - 2 hour 107 mg/dL 65-164 Not Available [facility] ([facility] [place] [place] [facility] [address] [place], [address], 02/09/2022 10:37:50 02/09/2002/09/2022 GESTA RADHA L 3 HOUR GTT-N [facility] glucose - 3 hour 100 mg/dL 65-144 Not Available [facility] ([facility] [place] [place] [facility] [address] [place], [address], 02/09/2022 10:37:50 02/23/2002/25/2022 NUSWA B VAGIN ITIS PLUS (VG+) atopobium vaginae Low - 0 score Not Available [facility] ([facility] [place] [place] [facility] [address] [place], [address], 02/27/2022 09:13:45 02/23/2002/25/2022 NUSWA B VAGIN ITIS PLUS (VG+) bvab 2 Low - 0 score Not Available [facility] ([facility] [place] [place] [facility] [address] [place], [address], 02/27/2022 09:13:45 02/23/2002/25/2022 NUSWA B VAGIN ITIS [...] Drug Admin istra tion. Not Available [facility] ([facility] [place] [place] [facility] [address] [place], [address], 02/27/2022 09:13:45 02/23/2002/25/2022 NUSWA B VAGIN ITIS PLUS (VG+) azalia albicans, REAL Negati ve negati ve Not Available [facility] ([facility] [place] [place] [facility] [address] [place], [address], 02/27/2022 09:13:45 02/23/20 22 02/25/2022 NUSWA B VAGIN ITIS PLUS (VG+) azalia glabrata, REAL Negati ve negati ve Not Available [facility] ([facility] [place] [place] [facility] [address] [place], [address], 02/27/2022 09:13:45 02/23/20 22 02/25/2022 NUSWA B VAGIN ITIS PLUS (VG+) trich vag by REAL Negati ve negati ve Not Available [facility] ([facility] [place] [place] [facility] [address] [place], [address], 02/27/2022 09:13:45 02/23/20 22 02/25/2022 NUSWA B VAGIN ITIS PLUS (VG+) chlamydia trachomatis, REAL Negati ve negati ve Not Available [facility] ([facility] [place] [place] [facility] [address] [facility], [place], [address], 02/27/2022 09:13:45 02/23/20 22 02/25/2022 NUA B VAGIN ITIS PLUS (VG+) neisseria gonorrhoeae, REAL Negati ve negati ve Not Available [facility] ([facility] [place] [place] [facility] [address] [facility], [place], [address], 02/27/2022 09:13:45 02/23/20 22 02/27/2022 STREP GP B CULTU RE strep gp [...] n is noted . Not Available [facility] ([facility] [place] [place] [facility] [address] [facility], [place], [address], 02/27/2022 09:13:46 02/23/20 22 02/23/2022 CBC WITH DIFFE RENTI AL/PL ATELE T WBC 11.3 x10e3 /uL 3.4-10 .8 above high normal Not Available [facility] ([facility] [place] [place] [facility] [address] [facility], [place], [address], 02/27/2022 09:13:46 02/23/20 22 02/23/2022 CBC WITH DIFFE RENTI AL/PL ATELE T RBC 3.76 x10e6 /uL 3.77-5 .28 below low normal Not Available [facility] ([facility] [place] [place] [facility] [address] [facility], [place], [address], 02/27/2022 09:13:46 02/23/20 22 02/23/2022 CBC WITH DIFFE RENTI AL/PL ATELE T hemoglobin 8.7 g/dL 11.1-1 5.9 below low normal Not Available [facility] ([facility] [place] [place] [facility] [address] [place], [address], 02/27/2022 09:13:46 02/23/20 22 02/23/2022 CBC WITH DIFFE RENTI AL/PL ATELE T hematocrit 27.6 % 34.0-4 6.6 below low normal Not Available [facility] ([facility] [place] [place] [facility] [address] [place], [address], 02/27/2022 09:13:46 02/23/20 22 02/23/2022 CBC WITH DIFFE RENTI AL/PL ATELE T MCV 73 fL 79-97 below low normal Not Available [facility] ([facility] [place] [place] [facility] [address] [place], [address], 02/27/2022 09:13:46 02/23/20 22 02/23/2022 CBC WITH DIFFE RENTI AL/PL ATELE T MCH 23.1 pg 26.6-3 3.0 below low normal Not Available [facility] ([facility] [place] [place] [facility] [address] [facility], [place], [address], 02/27/2022 09:13:46 02/23/20 22 02/23/2022 CBC WITH DIFFE RENTI AL/PL ATELE T MCHC 31.5 g/dL 31.5-3 5.7 Not Available [facility] ([facility] [place] [place] [facility] [address] [facility], [place], [address], 02/27/2022 09:13:46 02/23/20 22 02/23/2022 CBC WITH DIFFE RENTI AL/PL ATELE T RDW 15.7 % 11.7-1 5.4 above high normal Not Available [facility] ([facility] [place] [place] [facility] [address] [place], [address], 02/27/2022 09:13:46 02/23/20 22 02/23/2022 CBC WITH DIFFE RENTI AL/PL ATELE T platelets 260 x10e3 /uL 150-45 0 Not Available [facility] ([facility] [place] [place] [facility] [address] [place], [address], 02/27/2022 09:13:46 02/23/20 22 02/23/2022 CBC WITH DIFFE RENTI AL/PL ATELE T neutrophils 67 % notest ab. Not Available [facility] ([facility] [place] [place] [facility] [address] [place], [address], 02/27/2022 09:13:46 02/23/20 22 02/23/2022 CBC WITH DIFFE RENTI AL/PL ATELE T lymphs 23 % notest ab. Not Available [facility] ([facility] [place] [place] [facility] [address] [place] [address], [address], 02/27/2022 09:13:46 02/23/20 22 02/23/2022 CBC WITH DIFFE RENTI AL/PL ATELE T monocytes 8 % notest ab. Not Available [facility] ([facility] [place] [place] [facility] [address] [facility], [place], [address], 02/27/2022 09:13:46 02/23/20 22 02/23/2022 CBC WITH DIFFE RENTI AL/PL ATELE T eos 1 % notest ab. Not Available [facility] ([facility] [place] [place] [facility] [address] [facility], [place], [address], 02/27/2022 09:13:46 02/23/20 22 02/23/2022 CBC WITH DIFFE RENTI AL/PL ATELE T basos 0 % notest ab. Not Available [facility] ([facility] [place] [place] [facility] [address] [facility], [place], [address], 02/27/2022 09:13:46 02/23/2002/23/2022 CBC WITH DIFFE RENTI AL/PL ATELE T neutrophils (absolute) 7.6 x10e3 /uL 1.4-7. 0 above high normal Not Available [facility] ([facility] [place] [place] [facility] [address] [facility], [place], [address], 02/27/2022 09:13:46 02/23/20 22 02/23/2022 CBC WITH DIFFE RENTI AL/PL ATELE T lymphs (absolute) 2.6 x10e3 /uL 0.7-3. 1 Not Available [facility] ([facility] [place] [place] [facility] [address] [facility], [place], [address], 02/27/2022 09:13:46 02/23/20 22 02/23/2022 CBC WITH DIFFE RENTI AL/PL ATELE T monocytes(ab solute) 0.9 x10e3 /uL 0.1-0. 9 Not Available [facility] ([facility] [place] [place] [facility] [address] [facility], [place], [address], 02/27/2022 09:13:46 02/23/20 22 02/23/2022 CBC WITH DIFFE RENTI AL/PL ATELE T eos (absolute) 0.1 x10e3 /uL 0.0-0. 4 Not Available [facility] ([facility]) [address] [facility], [place], [address], 02/27/2022 09:13:46 02/23/20 22 02/23/2022 CBC WITH DIFFE RENTI AL/PL ATELE T baso (absolute) 0.0 x10e3 /uL 0.0-0. 2 Not Available [facility] ([facility]) [address] [facility], [place], [address], 02/27/2022 09:13:46 02/23/20 22 02/23/2022 CBC WITH DIFFE RENTI AL/PL ATELE T immature granulocytes 1 % notest ab. Not Available [facility] ([facility]) [address] [place], [address], 02/27/2022 09:13:46 02/23/20 22 02/23/2022 CBC WITH DIFFE RENTI AL/PL ATELE T immature grans (abs) 0.1 x10e3 /uL 0.0-0. 1 Not Available [facility] ([facility]) [address] [facility], [place], [address], 02/27/2022 09:13:46 11/29/19 22 11/27/2021 US, obste tric, 1st trime ster No observ ation record ed. [facility] ([facility]) [address] [place], [address], 11/28/2021 10:19:38 12/05/19 22 12/04/2021 US, obste tric, mater nal evalu ation + anato my No observ ation record ed. [facility] [address] [facility], [place], [address], 12/04/2021 17:06:06 1002/11/2022 US, obste tric, mater nal evalu ation + anato my No observ ation record ed. [facility] [address] [facility] [address], [place], [address], 02/12/2022 11:31:55 Result Notes None recorded. Problems Name Problem SNOMED Code Status Onset Date Resolution Date Notes Provider Name and Address Organization Details Recorded Time Pregnanc y 61436217 Completed 202103/28/2022 Aparna Bah MD Attn: Accounting ,[address] [facility], [place], [address] , [place] [facility] 09:55:23 Chlamydi al infectio n 218109244 Active 2021 MARGARITA 11/27/21 Maribell Carranza MD Attn: Accounting ,[address] [place], [address] , [place] [facility] 12:34:40 Chlamydi al infectio n 209401976 Completed 2021 MARGARITA 11/27/21 Maribell Carranza MD Attn: Accounting ,[address] [place], [address] , [place] [facility] 12:34:40 Maternal gonorrhe a during pregnanc y 91597239541 9108 Completed 2021 MARGARITA 02/01/22 Maribell Carranza MD Attn: Accounting ,[address] [facility], [place], [address] , [place] [facility] 12:34:40 Maternal gonorrhe a during pregnanc y 18210729906 9108 Active 2021 MARGARITA 02/01/22 Maribell Carranza MD Attn: Accounting ,[address] [place], [address] , [place] [facility] 12:34:40 History of sexually transmit curtis disease 339389470 Active 2021 TALITA PULIDO Attn: Accounting ,[address] [facility], [place], [address] , [place] [facility] 2 09:54:40 Insuffic ient care 51500337212 09 Completed 2021 Maribell Carranza MD Attn: Accounting ,[address] [facility], [place], [address] , [place] [facility] 12:34:40 Insuffic ient care 77435430293 09 Active 2021 Maribell Carranza MD Attn: Accounting ,[address] [facility], [place], [address] , [place] [facility] 3 12:34:40 Infectio n by Alex leong [id number] Completed 2021 Will perform MARGARITA on 02/22 Maribell Carranza MD Attn: Accounting ,[address] [facility], [place], [address] , [place] [facility] 12:34:40 Group B Streptoc occus carrier 93458394591 03 Completed 2021 Maribell Carranza MD Attn: Accounting ,[address] [facility], [place], [address] , [place] [facility] 12:34:40 Group B Streptoc occus carrier 51140939167 03 Active 2021 Maribell Carranza MD Attn: Accounting ,[address] [facility], [place], [address] , [place] [facility] 12:34:40 Overweig ht 566415576 Active Nohemy Salazar [place] [facility] 12:39:28 Acne vulgaris 06899868 Active Nohemy [place] [facility] 12:39:28 Anemia of pregnanc y 27306007 [place] [facility] 12:38:46 Anemia of pregnanc y 33140539 Completed [place] [facility] 12:38:46 Placenta l abnormal ity, antepart um 93922132575 1 [place] [facility] 12:38:46 Placenta l abnormal ity, antepart um 20238394722 1 Com[place] [facility] 12:38:46 Ultrasou nd scan abnormal 026508453 [place] [facility] 12:38:46 Ultrasou nd scan abnormal 880341382 Com[place] [facility] 12:38:46 Vomiting of pregnanc y 84192266 [place] [facility] 12:38:46 Vomiting of pregnanc y 35585037 Com[place] [facility] 12:38:46 Epistaxi s [place] [facility] 12:38:46 Epistaxi s Com[place] [facility] 12:38:46 Anemia 411972237 [place] [facility] 12:38:46 Anemia 420112107 Com[place] [facility] 12:38:46 Biliary sludge 84167483 [place] [facility] 12:38:46 Biliary sludge 54433451 Com[place] [facility] 12:38:46 Problem Notes None recorded. Procedures Surgical History Date Name Laterality Status Provider Name and Address Organization Details Recorded Time 09/07/2021 Date of Last Pap Smear completed Marianna Salmeron [place] [facility] 09/07/2021 08:39:58 Imaging Results None recorded. Procedure Notes None recorded. Medical Equipment None [...] Available Not Available Vitals Date Recorded Body weight Provider Name an d Address Organization Details Last Updated DateTime 11/27/2021 46792.71257 g TALITA PULIDO Attn: Accounting,[address] [place], [address], [facility] 11/27/2021 15:55:34 Date Recorded Body height Body mass index (BMI) Systolic And Diastolic Provider Name and Address Organization Details Last Updated DateTime 11/27/2021 160.02 cm 28 kg/m2 108/62 mm[Hg] Aysha Gaspar MA [facility] 11/27/2021 15:45:46 Date Recorded Body weight Provider Name an d Address Organization Details Last Updated DateTime 02/01/2022 60547.77341 g TALITA PULIDO Attn: Accounting,[address] [place], [address], [facility] 02/01/2022 09:45:56 Date Recorded Body height Body mass index (BMI) Systolic And Diastolic Provider Name and Address Organization Details Last Updated DateTime 02/01/2022 160.02 cm 28.7 kg/m2 100/62 mm[Hg] Marianna Salmeron MA [facility] 02/01/2022 09:35:17 Date Recorded Body weight Provider Name an d Address Organization Details Last Updated DateTime 02/22/2022 48950.527791 g Aparna karimi MD Attn: Accounting,[address] [place], [address], [facility] 02/24/2022 21:31:29 Date Recorded Body height Body mass index (BMI) Body temperature Heart rate Oxygen saturation Oxygen saturation in Arterial blood by Pulse oximetry Systolic And Diastolic Provider Name and Address Organization Details Last Updated DateTime 160.02 cm 28.6 kg/m2 98.5 [degF] 90 /min 98 % 98 % 108/71 mm[Hg] Rosa Humphries MA [facility] 14:46:58 Date Recorded Body weight Systolic And Diastolic Provider Name and Address Organization Details Last Updated DateTime 02/28/2022 58469.07897 g 116/62 mm[Hg] Aparna Bah MD Attn: Accounting,[address] [facility], [place], [address], [place] - [facility] 02/28/2022 16:55:15 Date Recorded Body height Body mass index (BMI) Provider Name and Address Organization Details Last Updated DateTime 02/28/2022 160.02 cm 29.2 kg/m2 Rosetta Cortez MA [place] - [facility] 02/28/2022 15:58:52 Social History Question Answer Notes LastModified by Organizat ion Details LastModified Time Tobacco Smoking Status Never Smoker Ludivina Aleman MA null, [place] - [facility] 05/11/2015 10:25:51 Do You Have An Advance Directive? No Information not available 12/20/2015 If You Are , What Was Your Level Of Alcohol Consumption Prior To ? None [email or web address] Information not available 12/20/2015 How Many Years Have You Consumed Alcohol? 0 [email or web address] Information not available 12/20/2015 Is Anesthesia Consult [...] Or Recreational Drugs Have You Used? Denies Information not available 12/20/2015 Education 12 Information [...] available 05/11/2015 Illicit Drugs Pre- Denies None [email or web address] Information not available 12/20/2015 How Many Years Have You Used Illicit Or Recreational Drugs? 0 [email or web address] Information not available 12/20/2015 Live Alone Or [...] What Is The Name Of Your School? [employer] Information not available 05/11/2015 Do You Use [...] How Much Tobacco Do You Smoke? No [email or web address] Information not available 12/20/2015 Smoking Pre- No Information not available 12/20/2015 General Stress Level Low Information not available 12/20/2015 Do You Use Sunscreen Routinely? No Information not available 05/11/2015 Supplements Vitamin [email or web address] Information not available 01/05/2016 Has Tobacco Cessation Counseling Been Provided? No Information not available 09/07/2021 How Many Years Have You Smoked Tobacco? 0 [email or web address] Information not available 12/20/2015 Year In School [...] available 05/11/2015 Are you currently employed? No [email or web address] Information not available 01/05/2016 What is your occupation? Unemployed, with no work experience in the last 5 years or earlier or never worked [email or web address] Information not available 01/05/2016 What is your exercise level? Occasional Information not available 05/11/2015 Mental Status Question Answer Note LastModified by Organization D etails LastModified Time Are you or have you been involved with bullying? No Information not available 05/11/2015 Family History Nothing Reported. Medical History Condition Response Other N High Blood Pressure N Blood Diseases N Breast Cancer N Blood Clots N Depression N Lung Disease N Developmental or Behavioral [...] Problems N GI Problems N Acne N Eating Disorder N Skin Problems N Anemia N Constipation N Diabetes N Ovarian Cancer N Bedwetting N Blood Transfusions N Heart Problems/Murmur N Seizures/Epilepsy N Urinary Tract Infection Y Abuse/Domestic Violence N Asthma N Allergies N Substance Abuse N Hepatitis N Heart Disease N Pre-Eclampsia N Chicken Pox Y Autism Spectrum Disorder (ASD) N Osteoporosis N Gynecological History Statement/Question Response Date of [...] DTaP, unspecified formulation 2 completed Not Available [facility] 03/26/2022 02:32:50 DTaP, unspecified formulation 8 completed Not Available [facility] 03/26/2022 02:32:50 DTaP, unspecified formulation 9 completed Not Available [facility] 03/26/2022 02:32:50 DTaP, unspecified formulation 8 completed Not Available [facility] 03/26/2022 02:32:50 DTaP, unspecified formulation 8 completed Not Available [facility] 03/26/2022 02:32:50 Hib, unspecified formulation 8 completed Not Available [facility] 03/26/2022 02:32:50 Hib, unspecified formulation 9 completed Not Available [facility] 03/26/2022 02:32:50 Hib, unspecified formulation 8 completed Not Available [facility] 03/26/2022 02:32:50 Hib, unspecified formulation 8 completed Not Available [facility] 03/26/2022 02:32:50 Hep A, unspecified formulation 2 completed Not Available [facility] 03/26/2022 02:32:50 Hep A, unspecified formulation 1 completed Not Available [facility] 03/26/2022 02:32:50 Hep B, unspecified formulation 8 completed Not Available [facility] 03/26/2022 02:32:50 Hep B, unspecified formulation 8 completed Not Available [facility] 03/26/2022 02:32:50 Hep B, unspecified formulation 8 completed Not Available [facility] 03/26/2022 02:32:50 HPV, unspecified formulation 1 completed Not Available [facility] 03/26/2022 02:32:50 HPV, unspecified formulation 9 completed Not Available [facility] 03/26/2022 02:32:50 HPV, unspecified formulation 2 completed Not Available [facility] 03/26/2022 02:32:50 influenza, unspecified formulation 1 completed Not Available [facility] 03/26/2022 02:32:50 MMR 2 completed Not Available [facility] 03/26/2022 02:32:50 MMR 9 completed Not Available [facility] 03/26/2022 02:32:50 meningococcal ACWY, unspecified formulation 9 completed Not Available [facility] 03/26/2022 02:32:50 Pneumococcal conjugate PCV 13 1 completed Not Available [facility] 03/26/2022 02:32:50 polio, unspecified formulation 8 completed Not Available [facility] 03/26/2022 02:32:50 polio, unspecified formulation 2 completed Not Available [facility] 03/26/2022 02:32:50 polio, unspecified formulation 8 completed Not Available [facility] 03/26/2022 02:32:50 polio, unspecified formulation 9 completed Not Available [facility] 03/26/2022 02:32:50 Tdap 9 completed Not Available [facility] 03/26/2022 02:32:50 varicella 9 completed Not Available [facility] 03/26/2022 02:32:50 varicella 9 completed Not Available [facility] 03/26/2022 02:32:50 Tdap 2 completed TALITA PULIDO Attn: Accounting,[address] [facility], [place], [address], [facility] 02/05/2022 13:52:28 Influenza, split virus, quadrivalent, PF 2 completed JOSE MIGUEL Roy, [facility] 02/08/2022 11:08:20 Meningococcal MCV4O 6 completed Not Available [facility] 05/15/2019 02:31:36 Past Encounters Encounter ID Performer Location Encounter Start Date Encounter Closed Date Diagnosis/Indication Diagnosis SNOMED-CT Code Diagnosis ICD10 Code Diagnosis Note [id number] Héctor Nina MD [facility] (Peds) [address] [place] [address] 05/11/2015 09:40:59 05/12/2015 03:48:35 Well child 745096221 Z00.129 Overweight 810861082 E66 .3 Acne vulgaris 37640886 L 70.0 [id number] MD Damian Ladd (FINANCIAL INTER[employer]) [address] [place] [id number] 12/20/2015 10:15:29 12/20/2015 17:37:09 Routine care 067939361 Z34.92 Anemia of 2734 2003 O99.019 [id number] MD Damian Ladd ([employer]CIAL [employer]) [address] [place] [phone] 01/05/2016 14:55:43 01/08/2016 10:09:13 Routine care 148787246 Z34.92 [id number] MD Damian Ladd (FIN[employer]CIAL [employer]) [address] [place] [id number] 01/15/2016 14:04:32 01/19/2016 11:16:07 Vomiting of 39163355 O21.9 Routine an tenatal care 608439411 Z34.92 Epistaxis 67417752 R04.0 [id number] MD Damian Ladd ([employer]CIAL [employer]) [address] [place] [phone] 01/22/2016 16:00:45 01/23/2016 09:52:53 Biliary sludge 71654493 K83.8 [id number] MD Damian Ladd ([employer]CIAL [employer]) [address] [place] [id number] 02/07/2016 12:16:36 02/08/2016 10:47:25 High risk 22924659 O09.92 Biliary sludge with nausea and vomiting Routine an tenatal care 583484060 Z34.92 [id number] MD Damian Ladd ([employer]CIAL [employer]) [address] [place] [phone] 02/28/2016 14:42:20 02/29/2016 10:33:52 Routine care 456136089 Z34.92 [id number] MD Damian Ladd (FIN[employer]CIAL [employer]) [address] [place] [id number] 03/13/2016 15:29:32 03/13/2016 17:30:22 Routine care 011881391 Z34.92 [id number] MD Damian Ladd (FIN[employer]CIAL [employer]) [address] [place] [id number] 04/03/2016 12:16:08 04/04/2016 10:43:14 Routine care 250530305 Z34.92 [id number] MD Damian Ladd (FIN[employer]CIAL [employer]) [address] [place] [phone] 05/02/2016 16:34:59 05/03/2016 10:05:53 Routine care 681960686 Z34.92 [id number] TALITA PULIDO (FINANCIAL INTERN) [address] [place] [id number] 09/07/2021 08:27:54 09/12/2021 09:40:34 Routine care 648278311 Z34.90 26 y/o female presents today for [...] in 4 weeks, cfDNA at next visit. [id number] TALITA PULIDO (FINANCIAL INTERN) [address] [place] [address] [place] [address] 11/27/2021 15:35:25 11/28/2021 13:24:01 Routine care 940430070 Z34.92 26 y/o female presents today for [...] in 4 weeks. History of chlamydial infection 324704277 Z86.19 S/p azithromyc in. Pt reports that partner was treated as well. She is currently asymptomat ic. Will retest today. Safe sex practices discussed. [id number] TALITA PULIDO (FINANCIAL INTERN) [address] [place] [phone] 12/04/2021 16:22:12 12/06/2021 12:18:10 Gonorrhea 92087386 A54.9 [id number] TALITA PULIDO (FIN[employer]CIAL INTERN) [address] [place] [phone] 02/01/2022 09:17:45 02/05/2022 14:09:11 Routine care 580633314 Z34.93 26 y/o female presents today for a HEYDI at 33 weeks. c/b chlamydia, gonorrhea, and insufficie nt care. Denies any vaginal bleeding or discharge, LOF, contractio ns/crampin g. Obstetric US on 12/04 with [facility] showed weight 67%, KESHAWN WNL, mild right sided renal pelvis dilation, likely physiologi c. Pt needs to follow up with US to reassess. Her fundal height today is 27 cm. FHT 138 bpm. Referral to [facility] for SGA fetus. Tdap and flu shot administer ed. 1 hour GCT completed today.-Fet al movement and kick counts reviewed-P re-eclamps ia and pre-term labor precaution s reviewed-T OC to [facility] for remainder of care History of sexually transmitted disease 201001659 Z86.19 c/b chlamydia and gonorrhea. S/p treatment, repeat testing today. Safe sex practices discussed. Insufficie nt care [id number] 109 O09.33 Small for gestational age fetus [id number] O36.5999 Fundal height today was SGA at 27 cm. Further eval with MFM. Administra tion of influenza vaccine [id number] Z23 [id number] Leana Carey MD [facility] [address] [facility] [address] [place] [address] 02/22/2022 14:19:50 02/25/2022 17:23:38 Routine care [id number] Z34.83 26yo femaleHigh -risk ? noFinal IDRIS: based on 2nd trimester US PMH: Anemia complicate d by: chlamydia in 2TM (treated) , gonorrhea in 3TM (treated) , and trichomona s infection in 3TM (treated), insufficie nt care Rh: negativeRh oGAM given: n/a : no labs: abnormal Abnormal lab: 1 hr GTT Anemia Plan for abnormal results if indicated: 3hr GTT normal. Iron supplement ation for anemia 2nd trimester US: abnormalsh owing mild left sided pelvic dilatation . Repeat 3TUS normal. Total weight gain: Pre-pregna ncy weight 162lbs, 161lbs today. Recommende d weight gain: BMI 25-29.9 15-25 lbs Flu vaccine: UTD Covid vaccine: declined Tdap: UTD Vertex scan done: yes, vertex GBS status: collected Breast pump ordered: yes no dec [facility] noBehavior ar Health: no Follow-up: 1week{s} - movement and kick counts reviewed-P re-eclamps [...] provider for pediatric care, will come to [facility] clinic- GBS swab today Trichomona l vaginitis in [id number] O98.319 Positive trich on 02/01Patie nt and partner treated with flagyl 500mg bid x7 days- will repeat nuswab today Glucose to lerance test outside reference range 274317677 R73.09 1hr GTT 1423hr GTT WNL Maternal g onorrhea during [id number] 27912 A54.9 MARGARITA on 02/01Will repeat nuswab today Chlamydia trachomatis infection in 8864411250 101 O23.93 MARGARITA on 11/27/21Will repeat nuswab today Iron defic iency anemia 65725031 D50.9 3TM Hgb 9.01TM Hgb WNL- Will repeat CBC today- Continue PO iron [id number] Leana Carey MD [facility] [address] [address] 02/28/2022 15:44:54 03/04/2022 11:51:40 Routine care 905873042 Z34.83 26yo femaleHigh -risk ? noFinal IDRIS: based on 2nd trimester US PMH: Anemia complicate d by: chlamydia in 2TM (treated) , gonorrhea in 3TM (treated) , and trichomona s infection in 3TM (treated), insufficie nt care Rh: negativeRh oGAM given: n/a : no labs: abnormal Abnormal lab: 1 hr GTT Anemia, nuswab in 2TM and 3TM Plan for abnormal results if indicated: 3hr GTT normal. Iron supplement ation for anemia. Repeat 3TM nuswab on 02/21/22 negative. 2nd trimester US: abnormalsh owing mild left sided pelvic dilatation . Repeat 3TUS normal. Total weight gain: Pre-pregna ncy weight 162lbs, 165lbs today Recommende d weight gain: BMI 25-29.9 15-25 lbs Flu vaccine: UTD Covid vaccine: declined Tdap: UTD Vertex scan done: yes, vertex GBS status: positive Breast pump ordered: yes no dec lined will order todayMFM referral: noBehavior al Health: no Follow-up: 1week{s} - movement and kick counts reviewed-P re-eclamps [...] provider for pediatric care, will come to [facility] clinic-Dis cussed risks/bene fits of circumcisi on for baby, patient will take some time to think about it Trichomona l vaginitis in 210400268 O98.319 Positive trich on 02/01Patie nt and partner treated with flagyl 500mg bid x7 days- MARGARITA on 02/21 negative Glucose to lerance test outside reference range 215760602 R73.09 1hr GTT 1423hr GTT WNL Maternal g onorrhea during [id number] 31498 A54.9 MARGRAITA on 02/01- repeat 3TM nuswab negative Chlamydia trachomatis infection in 7187428180 101 O23.93 MARGARITA on 11/27/21- repeat 3TM nuswab negative Iron defic iency anemia 26751183 D50.9 1TM Hgb WNL10/: 3TM Hgb 9.0- repeat 3TM 02/21: Hgb 8.7- Continue PO iron every other day- Will order Venofer 200mg in light of Hgb decreasing in spite of patient taking PO iron Group [facility] reptococcus carrier [id number] 103 Z22.330 GBS positive on 02/21/22- Will [...] Name 11/27/2021 1 [employer] [place] - DOS ON OR AFTER 2020 (MEDICAID REPLACEMENT - HMO) Nancy Byrne [id number] Nancy Byrne 12/04/2021 1 [employer] [place] ON [place] (MEDICAID REPLACEMENT - HMO) Nancy Byrne [id number] Nancy Byrne 02/01/2022 1 [employer] [place] ([place] REPLACEMENT - HMO) Nancy Byrne [id number] Nancy Byrne 02/22/2022 1 [employer] [place] REPLAC[place] - HMO) Nancy Byrne [id number] Nancy Byrne 02/28/2022 1 [employer] [place] REPLACEMENT - HMO) Nancy Garcianandez [id number] Nancy Byrne Notes Date Note Type Note [...] contractions/cramp ing. TALITA PULIDO Attn: Accounting[address] [place], [address], [facility] 11/28/2021 10:05:05 02/01/2022 text/html 26 y/o female presents today for a HEYDI at 33 weeks. c/b chlamydia, gonorrhea, and insufficient care. She has no concerns today. Baby moving well, feels the baby kicking mostly at night. She is still having nausea and vomiting in the AM. No spotting, cramping, fluid leakage or contractions. TALITA PULIDO Attn: [address] [place], [address], [facility] 02/05/2022 14:01:02 02/22/2022 text/html 26yr old female at 36w0d EGA d/t second trimester US presenting for routine OB visit. Transfer from [place]. complicated by gonorrhea infection in 3TM, chlamydia [...] swelling Bharathi Llanos MD Attn: Accounting[address] [facility], [place], [address], [facility] 02/28/2022 16:36:35 02/28/2022 text/html 26yr old female [...] swelling Lo Gupta MD Attn: Accounting[address] [facility], [place], [address], [facility] 03/01/2022 14:26:06 OBGyn Episode Ob Episode Information Episode Created Date Number of Fetuses Patient Bloodtype Patient rh Status Prepregnancy Weight lbs Domestic Partner Domestic Partner Phone Father Name Flight Physician Status 09/08/19 22 1 O Positive 162 CLOSED Fetus Data First Name Last Name Admitted to NICU Weight (g) Sex Living Outcome Pediatric Complications Fetus ID Race Codes Race Delivery Type false 3515.33 8 M 66345 [id number] White Vaginal Problems Problem Notes Boy Problem Name Start Date End Date Resolution Snomed Code Not e Infection by Trichomonas 02/01/2022 MEDICATION 96077010 Will perform TO C on 02/22 Group B Streptococcus carrier 02/28/2022 [id number] Maternal gonorrhea during 12/04/2021 [id number] MARGARITA 02/01 Insufficient care 02/01/2022 [id number] Chlamydial infection 09/18/2021 [id number] 0 MARGARITA 11/27/21 Idris Calculation Initial Idris [...] in lbs Pre/Post Dialysis Refused With clothes 162.742007708155 BP Diastolic BP Location Tested BP Systolic [...] in lbs Pre/Post Dialysis Refused With clothes 158.975031843257 BP Diastolic BP Location Tested BP Systolic [...] in lbs Pre/Post Dialysis Refused With clothes 162.578181201885 BP Diastolic BP Location Tested BP Systolic BP Type 62 100 sitting Fetus Heart Rate Present A 138 Present Fetus Movement A Yes Comments 26 y/o female presen ts today for a HEYDI at 33 weeks. c/b chlamydia, gonorrhea, and insufficient care. Denies any vaginal bleeding or discharge, LOF, contractions/cramping. Obstetric US on 12/04 with M showed weight 67%, KESHAWN WNL, mild right sided renal pelvis dilation, likely physiologic. Pt needs to follow up with US to reassess. Her fundal height today is 27 cm. Referral placed to [facility] for SGA fetus. Tdap and flu shot administered. 1 hour GCT completed today. MARGARITA for STDs. movement and kick counts reviewed. Pre-eclampsia and pre-term labor precautions reviewed. MARGARITA to [facility] for remainder of care and delivery. Flowsheet Date 02/22/2022 Bates Score Blood Edema Fundus Height Fundus Units Glucose Ketones Leukocytes Nitrite Labor Signs Protein Cervic Dilation Cervic Effacement Cervic Station Type Weight in lbs Pre/Post Dialysis Refused With clothes 161.95077158427 BP Diastolic BP Location Tested BP Systolic BP Type 71 108 sitting Fetus Heart Rate Present A 135 Fetus Movement Comments 26 y/o female EGA 36 w0d d/t 2TM US presenting for heydi. Transfer from [facility]. c/b chlamydia, gonorrhea, trich, anemia (on PO [...] Weight in lbs Pre/Post Dialysis Refused Weight 165.743654510404 BP Diastolic BP Location Tested BP Systolic [...] Estim ated Date of Delivery false Thalassemia (Bulgarian, British, Mediterranean, Or Background): MCV < 80 false Neural Tube Defect (Meningomyelocele, Spina Bifi da, Or Anencephaly) false Congenital Heart Defect false Down Syndrome false Kirby-Sachs (eg, Moravian, Cajun, Amharic-Baldwin) f alse Emily Disease false Sickle Cell [...] ed By 09/11/2021 Anticipated [place] [address] 09/11/2021 Alcohol [place] [address] 09/11/2021 [facility] Environmental/work hazards [place] [address] 09/11/2021 [place]y [place] [address] 09/11/2021 Nutrition counseling ; special diet; dietary precautions (mercury, listeriosis) [place] [address] 09/11/2021 Childbirth classes/hospital facilities [place] [address] 09/11/2021 HIV and other routine tests [place] [address] 09/11/2021 Risk factors identif ied by history [place] [address] 09/11/2021 Weight gain counseling [place] [address] 09/11/2021 Exercise [place] [address] 09/11/2021 Teratogens [place] [address] 09/11/2021 Use of any medicatio ns (including supplements, vitamins, herbs, or OTC drugs) [place] [address] 09/11/2021 [place] [address] 09/11/2021 Sexual activity [place] [address] 09/11/2021 Tobacco/smoking cess ation counseling (ask, advise, assess, assist, and arrange) [place] [address] 09/11/2021 Illicit/recreational drugs [place] [address] 09/11/2021 Dental care [place] [address] 09/11/2021 Travel [place] [address] 09/11/2021 Seat belt use [place] [address] 09/11/2021 Indications for ultrasonography [place] [address] 09/11/2021 Avoidance of saunas or hot tubs [facility] 09/11/2021 Toxoplasmosis precautions (cats/raw meat) [email or web address] Second Trimester Discussed Date Discussion Item Discussion Note Discuss ed By 11/27/2021 Selecting a care provider [email or web address] 11/27/[address] anning/tubal sterilization [email or web address] 11/27/2021 Depression screening (when indicated) [email or web address] 11/27/2021 Abnormal lab values jcortopa ssi1 11/27/2021 Signs and symptoms of labor [email or web address] 11/27/2021 Intimate partner violence veto [email or web address] 11/27/2021 Tobacco/smoking cess ation counseling (ask, advise, assess, assist, and arrange) [facility] Third Trimester Discussed Date Discussion Item Discussion Note Discuss ed By Delivery Information Delivery Date Delivery Type Labor Anesthesia Weeks Gestation Incision Type Labor Labor Length Hrs Delivered By Post Complications Tubal Sterilization Discharge Date Comments 2 Sponta neous 40 None Discharge Information Feeding Method Contraceptive Method Maternal HG B and HCT Levels Ob Episode Information Episode Created Date Number of Fetuses Patient Bloodtype Patient rh Status Prepregnancy Weight lbs Domestic Partner Domestic Partner Phone Father Name Flight Physician Status 12/20/19 16 1 O Positive 156 Chava Mcleod CLOSED Fetus Data First Name Last Name Admitted to NICU Weight (g) Sex Living Outcome Pediatric Complications Fetus ID Race Codes Race Delivery Type Carly Mcleod false 3373.59 05 F true Full Term 40199 2106-3 White Vaginal Problems Problem Notes vaginal delivery, pt no epid ual,baby girl, E[place]ot, both breast and bottle feed, pt to let know next visit on Peds for baby, 04/03/16 cbma Problem Name Start Date End Date Resolution Snomed Code Not e Anemia of 51880430 Biliary sludge 35760561 Placental abnormality, antepartum 286197907463 Ultrasound scan abnormal 27284 5008 Anemia 976650098 Epistaxis 92045458 Vomiting of 99075307 Idris Calculation Initial Idris Date Initial Exam Date Initial Exam Provider Initial Ultrasound Date Last Menstrual Period Date Ultra Sound Weeks Gestation 05/06/2016 12/20/2015 natalya 07/31/2015 0 Eighteen To Twenty Week Idris Update Ultra Sound Date Fundal Height At Umbil Quickening Date Ultra Sound Latest Weeks Gestation Final Idris Confirmed By Final Idris Confirmed Date Final Idris Date Ultra Sound Latest Days Gestation 01/10/20 16 23 natalya 01/11/2016 05/06/19 17 2 Pre- Flowsheet Flowsheet Date 12/20/2015 Bates Score Blood Edema Fundus Height Fundus Units Glucose Ketones Leukocytes Nitrite Labor Signs Protein Cervic Dilation Cervic Effacement Cervic Station neg none 21 none negative Other (see comments ) trace 0cm 0% -4 Type Weight in lbs Pre/Post Dialysis Refused 146.543911724020 BP Diastolic BP Location Tested BP Systolic [...] Type Weight in lbs Pre/Post Dialysis Refused 145.3576830949 BP Diastolic BP Location Tested BP Systolic [...] Type Weight in lbs Pre/Post Dialysis Refused 146.768722404279 BP Diastolic BP Location Tested BP Systolic BP Type 72 112 sitting Fetus Heart Rate Present A 152 Fetus Movement A Yes Comments Patient says she still vomit ing but able to keep some food. Her nose bleeds improved as per patient. D/w patient all lab work and ultrasound results. Counseled about biliary sludge. refer to [facility]. RTC in 1 week Flowsheet Date 02/07/2016 Bates Score Blood Edema Fundus Height Fundus Units Glucose Ketones Leukocytes Nitrite Labor Signs Protein Cervic Dilation Cervic Effacement Cervic Station neg none 27 none negative none neg Type Weight in lbs Pre/Post Dialysis Refused 148.522364114874 BP Diastolic BP Location Tested BP Systolic BP Type 78 112 sitting Fetus Heart Rate Present A 147 Present Fetus Movement A Yes Comments She say she saw [facility] and has follow up appointment next week. She says her nausea and vomiting improved. Schedule NST BPP from 28 weeks. PTL precautions discussed Flowsheet Date 02/28/2016 Bates Score Blood Edema Fundus Height Fundus Units Glucose Ketones Leukocytes Nitrite Labor Signs Protein Cervic Dilation Cervic Effacement Cervic Station neg none 30 cm none negative none neg Type Weight in lbs Pre/Post Dialysis Refused 150.618246330060 BP Diastolic BP Location Tested BP Systolic BP Type 78 112 sitting Fetus Heart Rate Present A 145 Present Fetus Movement A Yes Comments PTL precautions discussed. s he say she did 1 hr GTT at [place]. Advised nurse Krissy to get records. She is scheduled for Biweekly NST, BPP Flowsheet Date 03/13/2016 Bates Score Blood Edema Fundus Height Fundus Units Glucose Ketones Leukocytes Nitrite Labor Signs Protein Cervic Dilation Cervic Effacement Cervic Station neg none 32 cm none small none neg Type Weight in lbs Pre/Post Dialysis Refused 152.316423374258 BP Diastolic BP Location Tested BP Systolic BP Type 64 112 sitting Fetus Heart Rate Present A 126 Present Fetus Movement A Yes Comments PTL and kick counts discusse d. 1 hr GTT 130 done at [facility]. Flowsheet Date 04/03/2016 Bates Score Blood Edema Fundus Height Fundus Units Glucose Ketones Leukocytes Nitrite Labor Signs Protein Cervic Dilation Cervic Effacement Cervic Station neg none 34.5 cm none trace none trace 0cm 0% -4 Type Weight in lbs Pre/Post Dialysis Refused 152.987404721079 BP Diastolic BP Location Tested BP Systolic [...] Type Weight in lbs Pre/Post Dialysis Refused 159.565870421107 BP Diastolic BP Location Tested BP Systolic [...] At Estimated Date of Delivery false Thalassemia (Bulgarian, British, Mediterranean, Or Background): MCV < 80 false Neural Tube Defect (Meningom yelocele, Spina Bifida, Or Anencephaly) false Congenital Heart Defect false Down Syndrome false Kirby-Sachs (eg, Moravian, Cajun, Amharic-Baldwin) f alse Emily Disease false Sickle Cell Disease Or Trait () false Hemophilia Or Other Blood Disorders false Muscular Dystrophy false Cystic Fibrosis false Minden's Chorea false Mental Retardation/Autism false If Yes, [...] ed By 12/20/[address] [facility] 12/20/[address] [facility] 12/20/2015 Intimate partner violence [facility] 12/20/2015 Environmental/work hazards s 12/20/2015 Screening for aneuploidy [facility] 12/20/2015 Nutrition counseling ; special diet; dietary precautions (mercury, listeriosis) [facility] 12/20/2015 Childbirth classes/hospital facilities [facility] 12/20/2015 HIV and other routine tests [facility] 12/20/2015 Risk factors identif ied by history [facility] 12/20/2015 Weight gain counseling [facility] 12/20/[address] [facility] 12/20/[address] [facility] 12/20/2015 Use of any medicatio ns (including supplements, vitamins, herbs, or OTC drugs) [facility] 12/20/[address] [facility] 12/20/[address] [facility] 12/20/2015 Tobacco/smoking cess ation counseling (ask, advise, assess, assist, and arrange) [facility] 12/20/2015 Illicit/recreational drugs [facility] 12/20/[address] [facility] 12/20/[address] [facility] 12/20/[address] [facility] 12/20/[address] [facility] 12/20/2015 Avoidance of saunas or hot tubs [facility] 12/20/2015 Toxoplasmosis precautions (cats/raw meat) [email or web address] Second Trimester Discussed Date Discussion Item Discussion Note Discuss ed By 12/20/2015 Selecting a care provider not dec ided yet [facility] 02/07/[address] anning/tubal sterilization Declines control [facility] 12/20/2015 Depression screening (when indicated) [facility] 02/07/[address] [facility] 12/20/2015 Signs and symptoms o f labor yoshi 12/20/2015 Intimate partner violence [place]ie 12/20/2015 Tobacco/smoking cess ation counseling (ask, advise, assess, assist, and arrange) [facility] Third Trimester Discussed Date Discussion Item Discussion Note Discuss ed By 02/07/2016 Intimate partner violence [place]ie 01/05/2016 Anesthesia plans Natural [email or web address] 02/07/2016 education (n ewborn screening, jaundice, SIDS/safe sleeping position, car seat) [facility] Circumcision pt having baby girl 02/07/2016 Postterm counseling yoshi 02/07/2016 movement monitoring virginie 01/05/2016 Both [email or web address] 02/07/[address] [facility] [facility] 02/07/2016 depression [facility] 02/07/2016 Family medical leave or disability forms [facility] 02/07/2016 Tobacco/smoking cess ation counseling (ask, advise, assess, assist, and arrange) [facility] 02/07/2016 Signs and symptoms of preeclampsia [facility] Delivery Information Delivery Date Delivery Type Labor Anesthesia Weeks Gestation Incision Type Labor Labor Length Hrs Delivered By Post Complications Tubal Sterilization Discharge Date Comments 7 Induce d None 40.[address] [place] None false Discharge Information Feeding Method Contraceptive Method Maternal HG B and HCT Levels Combination
--- OUTSIDE RECORDS SUMMARY | 2024-09-21 21:40 | XMS_ITS | Continuity of Care Document ---
Author Organization [facility] [place] Address [address] [place] [address] Assessment No assessment recorded. Plan of Treatment Reminders Order Date Submit Date Provider Last Modified By Organization Details Last Modified Time Details Appointments INDUCTION 2024 04:00P Jacqueline Loyola CNM Not available Not available Not available OB ROUTINE 2024 10:45A M Ramonita Loyola CNM Not available Not available Not available Lab None recorded. Referral None recorded. Procedures None recorded. Surgeries None recorded. Imaging None recorded. Medication Orders None recorded. Patient TargetsNo targets recorded. Patient InstructionsNo instructions recorded. Reason for Referral None Reported. Results Created Date Observation Date Name Description Value Unit Range Abnormal Flag Note LastModifiedBy Organization Detail LastModifiedTime 09/16/1909/15/2024 non-s tress test No observ ation record ed. [email or web address] [place] [address], [place], [address], 09/16/2024 18:26:10 09/16/19 non-s tress test No observ ation record ed. [email or web address] [place] [address], [place], [address], 09/15/2024 11:25:07 09/16/19 25 09/15/2024 US, obste tric, bioph ysica l profi le + non-s tress test No observ ation record ed. [email or web address] [place] [address], [place], [address], 09/15/2024 11:35:30 09/16/19 25 09/15/2024 US, obste tric, follo w-up No observ ation record ed. [email or web address] [address], [place], [address], 09/16/2024 09:46:10 Result Notes None recorded. Problems Name Problem SNOMED Code Status Onset Date Resolution Date Notes Provider Name and Address Organization Details Recorded Time Pregnanc y 24673382 Completed 202209/26/2023 Enedelia Good [facility] 5 08:54:56 High hemoglob in A1c level 129125196 Completed 6.1 - early 1hr WNL, GTT NL Lizzeth Long [facility] 4 10:42:57 Pica 65068130 Completed coffee grounds, resolved after iron infusion Lizzeth Long [facility] 4 10:42:57 Anemia 030723236 Completed severe- Iron Infusion referral sent 06/24 Lizzeth Long [facility] 4 10:42:57 Late entry into care 658097375 Active 2024 Enedelia Good [facility] 5 08:58:18 Pregnanc y 45244213 Active 2024 Enedelia Good [facility], [facility] 5 08:54:56 History of anemia 809556794 Active 2024 Enedelia Good [facility] 5 08:57:56 Late entry into care 651806411 Active 2024 Enedelia Good [facility] 5 08:58:18 History of chlamydi al infectio n 406238256 Active 2024 Ramonita Loyola, [facility] [address], [place], [address], [place] [facility] 5 09:26:29 High hemoglob in A1c level 906339764 Active 2024 6.0 checking bs QID antenata l testing 39wk Fely Jeffery [facility], [facility] 5 09:04:05 Problem Notes None [...] Available Not Avai lable Not Available Vitals None Recorded Social History Question Answer Notes LastModified by Organizat ion Details LastModified Time Tobacco Smoking Status Former Smoker Enedelia Good [facility], [facility] 06/19/2023 15:18:41 If You Are , What Was Your Level Of Alcohol Consumption Prior To ? Occasional Information not available 06/19/2023 Are You Blind Or Do You Have Difficulty Seeing? No [email or web address] Information not available 06/19/2023 What Is Your Level Of Caffeine Consumption? Occasional [email or web address] Information not available 06/19/2023 In The 14 Days Before Symptom Onset, Have You Had Close Contact With A Laboratory-confir med COVID-19 While That Case Was Ill? No [email or web address] Information not available 06/19/2023 In The 14 Days Before Symptom Onset, Have You Had Close Contact With A Person Who Is Under Investigation For COVID-19 While That Person Was Ill? No [email or web address] Information not available 06/19/2023 Have You Been To An Area Known To Be High Risk For COVID-19? No [email or web address] Information not available 06/19/2023 Are You Deaf Or Do You Have Serious Difficulty Hearing? No [email or web address] Information not available 06/19/2023 What Type Of Diet Are You Following? REGULAR [email or web address] Information not available 06/19/2023 Do You Use Your Seat Belt Or Car Seat Routinely? Yes [email or web address] Information not available 06/19/2023 Do You Have Smoke And Carbon Monoxide Detectors In Your Home? Yes [email or web address] Information not available 06/19/2023 Do You Use Sunscreen Routinely? Yes [email or web address] Information not available 06/19/2023 Has Tobacco Cessation Counseling Been Provided? No [email or web address] Information not available 06/19/2023 Do You Have Difficulty Walking Or Climbing Stairs? No [email or web address] Information not available 06/19/2023 Sex: Unknown Functional Status Question Answer Note LastModified by Organizat ion Details LastModified Time Do you use any illicit or recreational drugs? No [email or web address] Information not available 06/19/2023 Do you or have you ever used any other forms of tobacco or nicotine? No [email or web address] Information not available 06/19/2023 What is your level of alcohol consumption? None [email or web address] Information not available 06/19/2023 Are you able to walk? YESWOREST [email or web address] Information not available 06/19/2023 Are you able to care for yourself? Yes [email or web address] Information n ot available 06/19/2023 Do you have difficulty dressing or bathing? No [email or web address] Information not available 06/19/2023 What is your exercise level? Occasional Information not available 06/19/2023 Mental Status Question Answer Note LastModified by Organization D etails LastModified Time Do you feel stressed (tense, restless, nervous, or anxious, or unable to sleep at night)? [id number] [email or web address] Information not available 06/19/2023 Family History Nothing Reported. Medical History Condition Response Allergies (Food, seasonal, environmental ) N Other Y Breast Cancer N Drug/Latex Allergies/Reactions N Blood Transfusion N Dermatologic Disorders N Lung Disease N Defects or Inherited Disease N Breast Problem N Gestational Diabetes N Hematologic disorders N Anesthesia Complications N History of STI Y Deep Vein Thrombosis N Polycystic ovary syndrome N Anxiety Disorder N Autoimmune disease N Arthritis N Infertility N Polyps N Acid Reflux (GERD) N History of abnormal pap N Cancer N Stroke N Varicosities N Neurologic/Epilepsy N Endometriosis N High Cholesterol [...] SNOMED-CT Code Diagnosis ICD10 Code Diagnosis Note [id number] Micheal Kelly MD [place] [address],[place] [address] 09/07/2024 11:16:19 09/07/2024 11:53:13 Insufficient care 0663984281 109 O09.33 Z3A.37 [id number] Ramonita Loyola [facility] [address],[place] [address] 09/07/2024 11:17:13 09/08/2024 09:16:06 screening 388413447 Z36.89 Candidiasis of vagina 72 627603 B37.31 care status 24 0669827 Z34.83 Bacterial disease screening 822625395 Z11.8 Gestation period, 37 weeks 37758812 Z3A.37 [id number] Ramonita Loyola CNM [place] [address],[place] [address] 09/15/2024 10:40:14 09/15/2024 12:07:34 Gestation period, 39 weeks 06997688 Z3A.39 cont pnv [id number] Ramonita Loyola CNM [place] [address],[place] [address] 09/15/2024 10:37:57 09/15/2024 11:36:16 High hemoglobin A1c level 495183374 R73.09 [id number] Micheal Kelly MD [place] [address] [address] 09/15/2024 10:44:17 09/15/2024 11:35:53 High risk 36579364 O09.33 Z3A.39 [id number] Ramonita Loyola CNM [place] [address] [address] 09/21/2024 08:49:47 09/21/2024 13:39:49 Health Concerns Section Related Observation LastModified by Organization Detai ls LastModified Time None Recorded Concern Status LastModified by Organization Details LastModified Time None Recorded Payers Encounter Date Sequence Insurance Name Policy Number Policy Mark Covered Member ID Mark Member ID Guarantor Name 09/21/2024 1 [facility] ON OR AFTER 10/26/20 (MEDICAID REPLACEMENT - HMO) Nancy Byrne [id number] Nancy Byrne OBGyn Episode Ob Episode Information Episode Created Date Number of Fetuses Patient Bloodtype Patient rh Status Prepregnancy Weight lbs Domestic Partner Domestic Partner Phone Father Name Oiler Helper Status 09/09/19 25 1 O Positive 182 Dominiq ue Cj OPEN Fetus Data First Name Last Name Admitted to NICU Weight (g) Sex Living Outcome Pediatric Complications Fetus ID Race Codes Race Delivery Type [id number] Problems Problem Notes Problem Name Start Date End Date Resolution Snomed Code Not e Late entry into care 09/08/2024 155510413 History of anemia 09/08/2024 059575647 High hemoglobin A1c level 09/15/2024 178510632 6.0 checking bs QID testing 39wk History of chlamydial infection 09/08/2024 883813250 Idris Calculation Initial Idris Date Initial Exam Date Initial Exam Provider Initial Ultrasound Date Last Menstrual Period Date Ultra Sound Weeks Gestation 09/22/2024 09/08/[email or web address] 06/15/2024 25 Eighteen To Twenty Week Idris Update Ultra Sound Date Fundal Height At Umbil Quickening Date Ultra Sound Latest Weeks Gestation Final Idris Confirmed By Final Idris Confirmed Date Final Idris Date Ultra Sound Latest Days Gestation 0 05/28/20 25 0 Pre-dion Flowsheet Flowsheet Date 09/07/2024 Bates Score Blood Edema Fundus Height Fundus Units Glucose Ketones Leukocytes Nitrite Labor Signs Protein Cervic Dilation Cervic Effacement Cervic Station neg trace none trace Type Weight in lbs Pre/Post Dialysis Refused 186.012304179092 BP Diastolic BP Location Tested BP Systolic [...] Type Weight in lbs Pre/Post Dialysis Refused 187.208391726423 BP Diastolic BP Location Tested BP Systolic BP Type 79 L arm 114 sitting Fetus Heart Rate Present Fetus Movement A Yes Comments Flowsheet Date 09/15/2024 Bates Score Blood Edema Fundus Height Fundus Units Glucose Ketones Leukocytes Nitrite Labor Signs Protein Cervic Dilation Cervic Effacement Cervic Station neg none Type Weight in lbs Pre/Post Dialysis Refused 187.775833019380 BP Diastolic BP Location Tested BP Systolic BP Type 79 114 Fetus Heart Rate Present Fetus Movement A Yes Comments Patient is having pain, cont ractions, nausea and vomiting. discussed with pt us increased abd and increased hga1c, rec 39 week IOL this week, can increase risks, pt declined, would schedule for next week , scheduled for 09/21 at 1600, +FM bpp 10, if any changes in movement to hospital [...]
[2024-09-21 22:16] VITALS: BMI 29.7
--- NOTE | 2024-09-21 22:16 | LDADM ---
This patient, Nancy Byrne, was admitted to Labor/Delivery/Recovery 103 on 09/21/24 at 21:36. Plans for labor, pain management and were discussed with patient. Patient/family oriented to hospital policies and general routines including ID bracelet, bed and alarms, visiting hours, pain management, procedures, bathroom and other care routines, personal items, smoking policy, room service/diet and guest tray routines, infant security routines, and visiting hours. Patient/Family are encouraged to report perceived risks to care and to ask questions if they do not understand what they are told or what they should do. See OBIX for further documentation.
[2024-09-21 22:19] LABS: Basophils Percent Auto 0.4 % (0.2-1.2); Eosinophils Absolute Auto 0.1 K/mm3 (0-0.3); Eosinophils Percent Auto 0.6 % (0-4.4); Hematocrit 30.4 % (37.0-47.0); Hemoglobin 9.1 g/dL (12.0-15.0); Immature Granulocyte Absolute 0.06 K/mm3 (0.00-0.031); Immature Granulocyte Percent A 0.6 % (0-0.5); Lymphocytes Absolute Auto 2.81 K/mm3 (0.9-3.2); Lymphocytes Percent Auto 28.6 % (18.3-44.2); Mean Corpuscular HGB Conc 29.9 g/dl (32-36); Mean Corpuscular Hemoglobin 22.6 pg (26-34); Mean Corpuscular Volume 75.4 fl (80-100); Mean Platelet Volume 10.5 fl (7.4-10.4); Monocytes Absolute Auto 1.2 K/mm3 (0.1-0.6); Neutrophils Absolute Auto 5.7 K/mm3 (1.3-6.7); Neutrophils Percent Auto 57.8 % (45.5-73.1); Platelet Count Result 246 k/mm3 (150-375); Red Blood Count 4.03 M/mm3 (4.2-5.4); Red Cell Distribution Width 15.9 % (11.5-14.5); White Blood Count 9.8 K/mm3 (4.5-10.0)
[2024-09-21 22:25] LABS: Platelet Estimate Adequate (Adequate)
[2024-09-21 22:26] VITALS: BP 114/72; PULSE 85
[2024-09-21 22:26] LABS: Hypochromasia 1+; Ovalocytes 1+; Schistocytes None Seen
[2024-09-21 22:28] LABS: Glucose 81 mg/dL (65-110)
[2024-09-21 22:30] VITALS: BP 117/69; PULSE 91
[2024-09-21 22:33] VITALS: PULSE 86; TEMP 36.6; O2SAT 96
[2024-09-21] MEDS: LACTATED RINGERS 1,000 ML 125 ML IV CONT (22:35)
[2024-09-21 22:36] LABS: Amphetamine Screen Urine Negative (Negative); Barbiturate Screen Urine Negative (Negative); Benzodiazepines Screen Urine Negative (Negative); Cannabinoid Screen Urine Negative (Negative); Cocaine Screen Urine Negative (Negative); Methadone Screen Urine Negative (Negative); Opiate Screen Urine Negative (Negative); Phencyclidine Screen Urine Negative (Negative)
[2024-09-21 22:59] LABS: Syphilis IgG/IgM Antibody Negative (Negative)
[2024-09-21 23:00] VITALS: BP 96/53; PULSE 87
[2024-09-21 23:13] LABS: HIV 1/2 Ab P24 Ag Result Negative (Negative)
[2024-09-22] VITALS (53 sets, daily range): BP systolic 98–140; BP diastolic 49–102; PULSE 66–103; RESP 16–18; TEMP 36.6–37.1; O2SAT 94–100
[2024-09-22] MEDS: OXYTOCIN 30 UNITS/NS 500 ML 30 UNITS/500 ML BAG IV CONT (05:03)
[2024-09-22 06:25] LABS: Glucose Point of Care 78 mg/dl (65-105)
[2024-09-22] MEDS: LACTATED RINGERS 1,000 ML 125 ML IV CONT (06:28)
--- NOTE | 2024-09-22 08:01 | WPDOBADMIT ---
Obstetrics - Admit Note Admission Note: record reviewed. No pertinent additions to the history and/or any subsequent changes in the physical findings that are not consistent with the expected course of the were found. Additions to the history and/or subsequent changes in the physical findings follow. Admit for IOL, limited care, elevated hgA1c, SVE 5/90/-2 AROM clear odorless fluid, anticipate vaginal delivery
[2024-09-22] MEDS: OXYTOCIN 30 UNITS/NS 500 ML 30 UNITS/500 ML BAG 999 UNITS IV CONT (10:15)
--- NOTE | 2024-09-22 10:21 | PM.OBPRVD ---
OB - Vaginal Delivery Note Procedure Delivery date: 09/22/24 Events: No Care (limited) and Other (elevated hga1c) Induction method: AROM and Per Pitocin Protocol Delivery monitor: External FHT and External Uterine Route of delivery: Laceration Description: Perineal - 1st Degree Delivery repair: other (none) Specimen: No Quantitative Blood Loss (ml): 100 Anesthesia type: None Disposition: Floor Complications: No immediate complications Baby Date of : 09/22/24 Time of : 10:12 Infant gender: Male Weight (pounds): 8 Weight (ounces): 11 presentation: vertex position: Right Occiput Anterior Cord Vessel Description: 3 Vessels, Clamped/Cut and Delayed Cord Clamping score one minute: 8 score five minutes: 9
[2024-09-22] MEDS: LIDOCAINE 1% LOCAL INJ 20 ML VIAL (10:24)
--- NOTE | 2024-09-22 12:32 | OBPPTRN ---
Patient transferred to post room #285 via wheelchair. Support person present. Oriented to unit, room, information board, rooming in, admission packet and security measures. Patient verbalizes understanding.
[2024-09-22] MEDS: IBUPROFEN 600 MG TABLET PO ×2 (14:34→22:53)
[2024-09-22] MEDS: DOCUSATE SODIUM 100 MG CAPSULE PO (21:10)
[2024-09-22] MEDS: ACETAMINOPHEN 325 MG TABLET 650 MG PO (22:52)
[2024-09-23] MEDS: IBUPROFEN 600 MG TABLET PO (04:40)
[2024-09-23] MEDS: ACETAMINOPHEN 325 MG TABLET 650 MG PO (04:40)
[2024-09-23 04:45] VITALS: BP 92/47; PULSE 74; RESP 18; TEMP 36.5; O2SAT 99
[2024-09-23 05:22] LABS: Hematocrit 26.5 % (37.0-47.0); Hemoglobin 7.8 g/dL (12.0-15.0)
[2024-09-23 08:00] VITALS: BP 107/61; PULSE 74; RESP 18; TEMP 36.5; O2SAT 98
--- NOTE | 2024-09-23 08:16 | P.PNOB_ITS ---
OB - PN: Subj Subjective Date/time seen: 09/23/24 08:16 Patient comments: no complaints, pain well controlled, incisional pain, tolerating diet and flatus present OB - PN: Obj Data Labs 09/23/24 04:40 09/21/24 21:46 Labs: Laboratory Results - last 24 hr 09/23/24 04:40 Hgb 7.8 L Hct 26.5 L OB - PN A/P Plan day: 1 Plan: routine care Comments: No problems, routine care Time Spent With Patient Time: Total time spent is greater than 50% in coordination of care (as documented) at patient's floor/unit and/or counseling patient: Exam 2 Const: General: comfortable, no acute distress and alert Resp: Effort & Inspection: normal respiratory effort Auscultation: no crackles, no rales and no rhonchi Cardio: Rate: regular rate Heart sounds: no click, no murmurs and no rubs GI: Inspection: non-distended GI Palp: No Tenderness to palpation present (GI) Auscultation: normal bowel sounds Other: Incision - CDI Extrem: General: normal to inspection, no pedal edema and no calf tenderness
--- NOTE | 2024-09-23 08:17 | P.DS_ITS ---
DS: Admitting Diagnosis Discharge Date 09/23/24 Admitting Diagnosis term DS: Discharge Diagnosis Discharge Diagnosis (1) Vaginal delivery: Code(s): O80 - Encounter for full-term uncomplicated delivery Status: Acute OB - DS: Summary OB Procedures : None OB Procedures Intrapartum: Spontaneous Vag Delivery OB Procedures: : None Peripartum Data Laceration Description: Perineal - 1st Degree Time Spent with Patient Time attestation: Total time spent providing and/or coordinating discharge services: DS: Data Data Completed and Pending Labs on day of discharge: Labs from last 24 hours 09/23/24 04:40 Hgb 7.8 L Hct 26.5 L Discharge Plan Discharge Discharging Clinician: Micheal Kelly Patient Disposition: Home Activity: pelvic rest Diet: regular Patient Instructions: Antibiotic Form Patient Language: [place] Citizen Stand Alone Forms: General Discharge Information Follow-up/Referrals: Micheal Kelly MD [Physician] - Discharge Medications: No Action No Home Medications Date of admission: 09/21/24 21:36 Primary Care Provider: UNKNOWN,DOCTOR Admitting Provider: Micheal Kelly Attending physician on admission: Ramonita Loyola Condition: Stable
[2024-09-23] MEDS: POLYSACCHARIDE IRON COMPLEX 150 MG CAPSULE PO (10:09)
[2024-09-23] MEDS: DOCUSATE SODIUM 100 MG CAPSULE PO (10:09)
[2024-09-23] MEDS: MULTIVIT/MIN/PREN/FOL AC/IRON TABLET 1 TAB PO (10:10)
[2024-09-23] MEDS: TETANUS,DIPHTHERIA,AC PERTUSSIS ADULT (0.5 ML) BOOSTRIX IM (10:10)
[2024-09-23] MEDS: WITCH HAZEL 40 PADS 1 PAD TOPICAL (10:11)
[2024-09-23] MEDS: BENZOCAINE 20% AER SPR (*SP) 56 GM CAN 1 SPRAY TOPICAL (10:11)
--- NOTE | 2024-09-23 11:27 | PC.NURSE ---
1050 Consulted with patient to assess needs related to . Discussed with mother her successes, concerns and any questions she has. Per mother she plans on breast and bottle feeding, she does have her own breast pump to use at home if needed. We reviewed working with the infant, supporting breast, protecting her nipples with an optimal deep latch, good positioning, and good hand washing. Encouraged understanding the benefits of skin to skin, responding to feeding cues, frequencies of feeding 8-12 times in 24 hours (approximately 2-3 hours), duration of feedings, milk production, intake/output feeding sheet and signs of adequate intake encouraging swallowing at the breast. Reviewed positioning and alignment, supporting breast, off-centered (asymmetrical latch) and leading with the chin with big, open, wide gape. Infant latched optimally to the [right] breast in [cross cradle] position. Education given to the mother of how to visualize the suckling (with good rocking jaw motion) swallows (dropping of the lower jaw) and how to listen for drinking at the breast (the ka sound). The was [able] to maintain latch without discomfort to mother. Nipple care reviewed with optimal latch, good positioning and using clean hands when touching her breast. has had appropriate feedings in the last 24 hours meets the outcomes for weight, output, blood sugar and jaundice at this time. Reinforced understanding of milk production, transition of milk, signs of adequate intake, transition of stool, prevention/relief of engorgement, plugged ducts, mastitis, responsive watching for feeding cues, the different methods of stimulating infant to breastfeed 1-3 hours after the start of the last feeding, community resources, and when to call a provider using the resource of the feeding sheet along with the mom and baby guide. Mother voiced understanding of the information shared, is confident to continue effectively her infant at home, when to call for assistance, denies any additional assistance or education at this time. Reported to the Primary RN. [id number] [facility] Referral form completed and faxed to the [place] Office #[phone], form placed on mother's chart.
--- NOTE | 2024-09-23 14:52 | WPDANLDPN2 ---
Anes-Prog Note L&D Date/Time: 09/23/24 14:52 Comfortable throughout: delivery Neuro status: Neuro function grossly intact. Cardiovascular status: normal Respiratory status: normal Vital Signs: Last Vital Signs Temp 36.5 C 09/23/24 08:00 Pulse 74 09/23/24 08:00 Resp 18 09/23/24 08:00 BP 107/61 09/23/24 08:00 Pulse Ox 98 09/23/24 08:00 O2 Del Method Room Air 09/22/24 20:15 I/O: Intake & Output 09/22/24 09/23/24 09/23/24 23:59 07:59 15:59 Intake Total 250 Balance 250 Patient feedback: Patient satisfied with anesthetic care.
== END 2024-09-23 17:26 | disposition home or self-care (01) | DRG 560 ==
LOC: ANHOB2 09-23 08:19 → ANHLDR 09-24 10:59
PROVIDERS: Advanced Practice Midwife; Admitting Provider Obstetrics & Gynecology; Visit Provider Obstetrics & Gynecology
DX: O70.0 First degree perineal laceration during delivery (principal); Z3A.40 40 weeks gestation of pregnancy; Z37.0 Single live birth
CPT/HCPCS: 36415; 80307; 82947; 82948; 85014; 85018; 85025; 86593; 86703; 86850; 86900; 86901; 90715; A9270; G0432; J2003; J2590; J7120